=== PATIENT | female | born 1950 | race Caucasian/White ===

== ENCOUNTER → 2017-03-29 | Outpatient (CLI) | payer MEDICARE, OTHER ==
[~2017-03-29] MED LIST: CALC-665 PO; CETI10TA17 PO; GLUC-137 PO; HYDR-3583 PO; IBP600T1 PO; MULT-608 PO; OMEG1CAP51 PO; SIMV10TA3 PO; TAMO20TA2 PO; TYLENOL #3 PO
--- NOTE | 2017-03-29 19:20 | Diagnostic Imaging Report ---
Bilateral screening mammogram The current study was also evaluated with a Computer Aided Detection (CAD) system. INDICATION: Screening. No current complaints stated on the questionnaire. COMPARISON: 03/23/16. FINDINGS: The breasts are composed of scattered fibroglandular densities. There are occasional benign-appearing calcifications. Surgical clips in the medial aspect of the left breast and in the axilla are noted, similar to prior exams. Allowing for technique and positional differences, no suspicious change is seen. IMPRESSION: No significant change. ACR BI-RADS Category 2: Benign findings. Result letter will be mailed to the patient. Note: At least 10% of breast cancer is not imaged by mammography. Dictated by: Dictated on workstation # [id number]
== END ==
LOC: RAD 09:18
PROVIDERS: ATTEND Internal Medicine Hematology & Oncology
DX: Z12.31 Encounter for screening mammogram for malignant neoplasm of breast (principal)
CPT/HCPCS: 77067

== ENCOUNTER 2017-04-03 08:50 | Outpatient (RCR) | payer MEDICARE, OTHER ==
[2017-03-29 09:09] LABS: BASOPHILS # (AUTO) 0.1 10^3/uL (0.0-0.1); BASOPHILS % (AUTO) 1 % (0-10); EOSINOPHILS # (AUTO) 0.2 10^3/uL (0.0-0.3); EOSINOPHILS % (AUTO) 3 % (0-10); LYMPHOCYTES # (AUTO) 1.7 X 10^3 (1.0-4.0); LYMPHOCYTES % (AUTO) 24 % (12-44); MEAN CORPUSCULAR HEMOGLOBIN 28 PG (25-34); MEAN CORPUSCULAR HGB CONC 33 G/DL (32-36); MEAN CORPUSCULAR VOLUME 85 FL (80-99); MEAN PLATELET VOLUME 8.9 FL (7.4-10.4); MONOCYTES # (AUTO) 0.4 X 10^3 (0.0-1.0); MONOCYTES % (AUTO) 6 % (0-12); NEUTROPHILS # (AUTO) 4.6 X 10^3 (1.8-7.8); NEUTROPHILS % (AUTO) 66 % (42-75); PLATELET COUNT 341 10^3/uL (130-400); RED BLOOD COUNT 4.58 10^6/uL (4.35-5.85); RED CELL DISTRIBUTION WIDTH 13.9 % (10.0-14.5)
[2017-03-29 10:26] LABS: ALANINE AMINOTRANSFERASE 22 U/L (0-55); ALBUMIN 4.4 G/DL (3.2-4.5); ANION GAP 9 MMOL/L (5-14); ASPARTATE AMINO TRANSFERASE 16 U/L (5-34); BILIRUBIN,TOTAL 0.4 MG/DL (0.1-1.0); BLOOD UREA NITROGEN 17 MG/DL (7-18); BUN/CREATININE RATIO 22; CALCIUM 9.9 MG/DL (8.5-10.1); CARBON DIOXIDE 27 MMOL/L (21-32); CHLORIDE 104 MMOL/L (98-107); CREATININE SERUM 0.76 MG/DL (0.60-1.30); GFR ESTIMATED > 60; GLUCOSE 97 MG/DL (70-105); SODIUM 140 MMOL/L (135-145); TOTAL PROTEIN 8.1 G/DL (6.4-8.2)
== END 2017-06-27 | disposition home or self-care (01) ==
LOC: ONC 08:50
PROVIDERS: ATTEND Internal Medicine Hematology & Oncology
DX: Z08 Encounter for follow-up examination after completed treatment for malignant neoplasm (principal); Z85.3 Personal history of malignant neoplasm of breast; D61.818 Other pancytopenia; Z79.899 Other long term (current) drug therapy
CPT/HCPCS: 36415; 80053; 85025; 86300; 99213

== ENCOUNTER → 2018-04-01 | Outpatient (CLI) | payer MEDICARE, OTHER ==
--- NOTE | 2018-04-01 13:38 | Diagnostic Imaging Report ---
INDICATION: Routine screening. COMPARISON: 03/29/2017 and 03/23/2016. TECHNIQUE: 2D and 3D bilateral screening mammography was performed with CAD. FINDINGS: Scattered fibroglandular densities are identified bilaterally. Postsurgical changes with multiple surgical clips in the left breast are again noted. No dominant mass or malignant appearing microcalcifications are seen. The left axilla does contain multiple surgical clips. The right axilla is unremarkable. IMPRESSION: No mammographic features suspicious for malignancy are identified. ACR BI-RADS Category 2: Benign findings. Result letter will be mailed to the patient. Note: At least 10% of breast cancer is not imaged by mammography. Dictated by: Dictated on workstation # [id number]
== END ==
LOC: RAD 09:29
PROVIDERS: ATTEND Internal Medicine Hematology & Oncology
DX: Z12.31 Encounter for screening mammogram for malignant neoplasm of breast (principal)
CPT/HCPCS: 77067

== ENCOUNTER 2018-04-09 08:23 | Outpatient (RCR) | payer MEDICARE, OTHER ==
[2018-04-02 08:54] LABS: BASOPHILS # (AUTO) 0.1 10^3/uL (0.0-0.1); BASOPHILS % (AUTO) 1 % (0-10); EOSINOPHILS # (AUTO) 0.2 10^3/uL (0.0-0.3); EOSINOPHILS % (AUTO) 4 % (0-10); HEMATOCRIT 40 % (35-52); HEMOGLOBIN 13.5 G/DL (11.5-16.0); LYMPHOCYTES # (AUTO) 1.8 X 10^3 (1.0-4.0); LYMPHOCYTES % (AUTO) 29 % (12-44); MEAN CORPUSCULAR HEMOGLOBIN 29 PG (25-34); MEAN CORPUSCULAR HGB CONC 34 G/DL (32-36); MEAN CORPUSCULAR VOLUME 86 FL (80-99); MEAN PLATELET VOLUME 9.2 FL (7.4-10.4); MONOCYTES # (AUTO) 0.4 X 10^3 (0.0-1.0); MONOCYTES % (AUTO) 6 % (0-12); NEUTROPHILS # (AUTO) 3.6 X 10^3 (1.8-7.8); NEUTROPHILS % (AUTO) 60 % (42-75); PLATELET COUNT 315 10^3/uL (130-400); RED BLOOD COUNT 4.63 10^6/uL (4.35-5.85); RED CELL DISTRIBUTION WIDTH 13.5 % (10.0-14.5)
[2018-04-02 09:13] LABS: ALANINE AMINOTRANSFERASE 24 U/L (0-55); ALBUMIN 4.5 GM/DL (3.2-4.5); ALKALINE PHOSPHATASE 59 U/L (40-136); BILIRUBIN,TOTAL 0.4 MG/DL (0.1-1.0); BUN/CREATININE RATIO 14; CALCIUM 9.9 MG/DL (8.5-10.1); CARBON DIOXIDE 26 MMOL/L (21-32); CHLORIDE 107 MMOL/L (98-107); CREATININE SERUM 0.76 MG/DL (0.60-1.30); GFR ESTIMATED > 60; GLUCOSE 102 MG/DL (70-105); POTASSIUM 3.9 MMOL/L (3.6-5.0); SODIUM 142 MMOL/L (135-145); TOTAL PROTEIN 8.2 GM/DL (6.4-8.2)
== END 2018-07-01 | disposition home or self-care (01) ==
LOC: ONC 08:23
PROVIDERS: ATTEND Internal Medicine Hematology & Oncology
DX: Z08 Encounter for follow-up examination after completed treatment for malignant neoplasm (principal); Z85.3 Personal history of malignant neoplasm of breast; D61.818 Other pancytopenia; Z79.899 Other long term (current) drug therapy
CPT/HCPCS: 36415; 80053; 85025; 86300; 99213

== ENCOUNTER → 2018-04-29 | Outpatient (CLI) | payer MEDICARE, OTHER ==
--- NOTE | 2018-04-29 10:19 | Diagnostic Imaging Report ---
INDICATION: Peripheral vascular disease Ankle brachial indexes were recorded. Pressures are obtained in the brachial arteries and in the posterior tibial and dorsalis pedis. Right ankle brachial index is 0.99 in the posterior tibial and 0.80 in the dorsalis pedis. The left ankle-brachial index is 0.93 in the posterior tibial artery and 0.85 in the dorsalis pedis. IMPRESSION: There appears to be some pressure drop in the dorsalis pedis arteries and ankle bilaterally. Dictated by: Dictated on workstation # [id number]
--- NOTE | 2018-04-29 10:49 | Diagnostic Imaging Report ---
PROCEDURE: US Bilateral lower extremity arterial. TECHNIQUE: Multiple real-time grayscale images are obtained through both lower extremity arterial systems with color Doppler imaging and color Doppler spectral analysis. INDICATION: Lower extremity swelling. Discoloration of the toes. COMPARISON: None. FINDINGS: Left lower extremity arterial system: Biphasic flow is seen from the common femoral artery through the calf and into the dorsalis pedis artery. There is mild scattered echogenic atherosclerotic disease. There is somewhat asymmetric diminished systolic velocity within the left dorsalis pedis artery. Otherwise, there is no evidence of focal hemodynamically significant stenosis throughout. Right lower extremity arterial system: Triphasic flow is noted within the right common femoral artery. Biphasic flow is then seen from the superficial femoral artery through the calf to the dorsalis pedis artery. There is mild scattered echogenic atherosclerotic disease on the right as well. Grayscale and color-flow images however fail to show an area of focal hemodynamically significant stenosis. IMPRESSION: Scattered atherosclerotic disease of the bilateral lower extremity arterial systems with somewhat asymmetric diminished peak systolic velocities in the left dorsalis pedis artery, but no evidence of focal hemodynamically significant stenosis. Dictated by: Dictated on workstation # [id number]
== END ==
LOC: RAD 08:52
PROVIDERS: ATTEND Internal Medicine
DX: I70.209 Unspecified atherosclerosis of native arteries of extremities, unspecified extremity (principal)
CPT/HCPCS: 93922; 93925

== ENCOUNTER → 2018-06-19 | Outpatient (CLI) | payer MEDICARE, OTHER ==
--- NOTE | 2018-06-19 09:55 | Diagnostic Imaging Report ---
PROCEDURE: CT head without contrast. TECHNIQUE: Multiple contiguous axial images were obtained through the brain without the use of intravenous contrast. INDICATION: Balance problems and falls. Patient has a history of breast carcinoma. No prior head CTs are available for comparison. The ventricles and sulci are within normal limits. No sulcal effacement, midline shift or hemorrhage is detected. There is mild periventricular hypodensity noted, likely on the basis of chronic microvascular ischemia. Cisterns are patent. The visualized paranasal sinuses are clear. IMPRESSION: Changes of chronic microvascular ischemia. No other significant abnormality is seen. No acute features detected. Dictated by: Dictated on workstation # [id number]
== END ==
LOC: RAD 09:27
PROVIDERS: ATTEND Internal Medicine
DX: I67.82 Cerebral ischemia (principal); Z85.3 Personal history of malignant neoplasm of breast; W19.XXXA Unspecified fall, initial encounter
CPT/HCPCS: 70450

== ENCOUNTER → 2018-06-28 | Outpatient (CLI) | payer MEDICARE, OTHER | LOC: CARD 09:32 | PROVIDERS: ATTEND Internal Medicine Interventional Cardiology | DX: I10 Essential (primary) hypertension (principal); R06.02 Shortness of breath; E78.00 Pure hypercholesterolemia, unspecified | CPT/HCPCS: 93306 ==

== ENCOUNTER → 2019-04-02 | Outpatient (CLI) | payer MEDICARE, OTHER ==
--- NOTE | 2019-04-02 13:16 | Diagnostic Imaging Report ---
INDICATION: Routine screening. COMPARISON: 04/01/2018 and 03/29/2017. TECHNIQUE: 2D and 3D bilateral screening mammography was performed with CAD. FINDINGS: Scattered fibroglandular densities are identified bilaterally. Surgical clips in the medial left breast are noted. No dominant mass or malignant appearing microcalcifications are seen. The axillae are unremarkable apart from surgical clips in the left axilla. IMPRESSION: No mammographic features suspicious for malignancy are identified. ACR BI-RADS Category 2: Benign findings. Result letter will be mailed to the patient. Note: At least 10% of breast cancer is not imaged by mammography. Dictated by: Dictated on workstation # [id number]
== END ==
LOC: RAD 07:41
PROVIDERS: ATTEND Internal Medicine Hematology & Oncology
DX: Z12.31 Encounter for screening mammogram for malignant neoplasm of breast (principal); Z98.890 Other specified postprocedural states
CPT/HCPCS: 77067

== ENCOUNTER 2019-04-10 09:25 | Outpatient (RCR) | payer MEDICARE, OTHER ==
[2019-04-02 08:18] LABS: BASOPHILS % (AUTO) 0 % (0-10); EOSINOPHILS # (AUTO) 0.2 10^3/uL (0.0-0.3); EOSINOPHILS % (AUTO) 3 % (0-10); HEMATOCRIT 37 % (35-52); HEMOGLOBIN 12.3 G/DL (11.5-16.0); LYMPHOCYTES % (AUTO) 27 % (12-44); MEAN CORPUSCULAR HEMOGLOBIN 28 PG (25-34); MEAN CORPUSCULAR HGB CONC 33 G/DL (32-36); MEAN CORPUSCULAR VOLUME 86 FL (80-99); MEAN PLATELET VOLUME 8.9 FL (7.4-10.4); MONOCYTES # (AUTO) 0.6 X 10^3 (0.0-1.0); MONOCYTES % (AUTO) 8 % (0-12); NEUTROPHILS # (AUTO) 4.4 X 10^3 (1.8-7.8); NEUTROPHILS % (AUTO) 61 % (42-75); PLATELET COUNT 349 10^3/uL (130-400); RED CELL DISTRIBUTION WIDTH 13.7 % (10.0-14.5); WHITE BLOOD COUNT 7.2 10^3/uL (4.3-11.0)
[2019-04-02 08:39] LABS: ALANINE AMINOTRANSFERASE 26 U/L (0-55); ALBUMIN 4.3 GM/DL (3.2-4.5); ALKALINE PHOSPHATASE 62 U/L (40-136); BILIRUBIN,TOTAL 0.3 MG/DL (0.1-1.0); BUN/CREATININE RATIO 20; CALCIUM 10.2 MG/DL (8.5-10.1); CARBON DIOXIDE 25 MMOL/L (21-32); CHLORIDE 104 MMOL/L (98-107); CREATININE SERUM 0.75 MG/DL (0.60-1.30); GFR ESTIMATED > 60; GLUCOSE 96 MG/DL (70-105); POTASSIUM 3.8 MMOL/L (3.6-5.0); SODIUM 141 MMOL/L (135-145)
== END 2019-07-01 | disposition home or self-care (01) ==
LOC: ONC 09:25
PROVIDERS: ATTEND Internal Medicine Hematology & Oncology
DX: Z08 Encounter for follow-up examination after completed treatment for malignant neoplasm (principal); Z85.3 Personal history of malignant neoplasm of breast; Z79.899 Other long term (current) drug therapy
CPT/HCPCS: 36415; 80053; 85025; 99213

== ENCOUNTER → 2020-08-02 | Outpatient (CLI) | payer MEDICARE, OTHER ==
--- NOTE | 2020-08-02 09:13 | Diagnostic Imaging Report ---
INDICATION: Routine screening. Comparison is made with prior mammogram 04/02/2019 and 04/01/2018. 2-D and 3-D bilateral screening mammography was performed with CAD. Scattered fibroglandular densities are identified bilaterally. There are surgical clips in the medial left breast. There are densities identified in the right breast which appear more prominent than prior. These are just lateral to the nipple line and anterior mid depth. Additional views are recommended. No malignant appearing microcalcifications are seen. Left axilla containing surgical clips. Right axilla is unremarkable. IMPRESSION: BI-RADS 0 Right breast densities. Additional views recommended for further evaluation. ACR BI-RADS Category 0: Incomplete. (Needs additional imaging evaluation). Result letter will be mailed to the patient. Note: At least 10% of breast cancer is not imaged by mammography. Dictated by: Dictated on workstation # [id number]
== END ==
LOC: RAD 07:45
PROVIDERS: ATTEND Internal Medicine Hematology & Oncology
DX: Z12.31 Encounter for screening mammogram for malignant neoplasm of breast (principal)
CPT/HCPCS: 77063; 77067

== ENCOUNTER → 2020-08-02 | Outpatient (CLI) | payer MEDICARE, OTHER ==
--- NOTE | 2020-08-02 08:27 | Diagnostic Imaging Report ---
EXAMINATION: Left knee radiographs, 3 views. COMPARISON: None. HISTORY: 69-year-old female, left knee pain. FINDINGS: There is severe patellofemoral compartment joint space loss with small patellofemoral compartment osteophytes. There is no knee joint effusion. The medial and lateral compartment joint spaces are well preserved. There is no identified acute fracture. There is no chondrocalcinosis. 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 Dictated by: Dictated on workstation # [id number]
== END ==
LOC: RAD 07:47
PROVIDERS: ATTEND Internal Medicine
DX: M17.12 Unilateral primary osteoarthritis, left knee (principal)
CPT/HCPCS: 73562

== ENCOUNTER → 2020-08-04 | Outpatient (CLI) | payer MEDICARE, OTHER ==
--- NOTE | 2020-08-04 14:30 | Diagnostic Imaging Report ---
INDICATION: Right breast densities. Patient presents for additional views. COMPARISON: Recent screening study of 08/02/2020. TECHNIQUE: Unilateral right 2D and 3D diagnostic mammography was performed including spot compression CC and ML views as well as conventional 90 degree lateral views. FINDINGS: Additional views show persistent small circumscribed nodular densities in the retroareolar region approximately 3 cm from the nipple. There may be a nodule slightly more inferiorly at approximately the 6 o'clock location as well. No spiculated mass or suspicious calcifications are seen. IMPRESSION: Circumscribed nodules in the right breast, as described. Further evaluation with ultrasound is recommended and will be performed today. ACR BI-RADS Category 0: Incomplete. (Needs additional imaging evaluation). Result letter will be mailed to the patient. Note: At least 10% of breast cancer is not imaged by mammography. Dictated by: Dictated on workstation # [id number]
--- NOTE | 2020-08-04 15:14 | Diagnostic Imaging Report ---
INDICATION: Right breast nodular density. COMPARISON: Diagnostic mammogram from earlier this same day as well as screening mammogram from 08/02/2020. FINDINGS: Sonographic interrogation of the right breast demonstrates a simple appearing cyst in the retroareolar 7 o'clock location measuring approximately 3 mm x 4 mm. No abnormality at the 6 o'clock location is seen. No solid lesions are seen. IMPRESSION: Simple cyst at the retroareolar 7 o'clock location of the right breast, likely accounting for the mammographic density. The patient may return to routine annual screening mammography. ACR BI-RADS Category 2: Benign findings. Dictated by: Dictated on workstation # [id number]
== END ==
LOC: RAD 14:15
PROVIDERS: ATTEND Internal Medicine Hematology & Oncology
DX: N60.01 Solitary cyst of right breast (principal); R92.2 Inconclusive mammogram; R92.8 Other abnormal and inconclusive findings on diagnostic imaging of breast
CPT/HCPCS: 76642; 77065; G0279

== ENCOUNTER 2020-08-05 13:53 | Outpatient (RCR) | payer MEDICARE, OTHER ==
[2020-08-02 08:32] LABS: BASOPHILS % (AUTO) 1 % (0-10); EOSINOPHILS # (AUTO) 0.2 10^3/uL (0.0-0.3); EOSINOPHILS % (AUTO) 3 % (0-10); HEMATOCRIT 40 % (35-52); HEMOGLOBIN 13.1 G/DL (11.5-16.0); LYMPHOCYTES # (AUTO) 1.7 X 10^3 (1.0-4.0); LYMPHOCYTES % (AUTO) 27 % (12-44); MEAN CORPUSCULAR HEMOGLOBIN 28 PG (25-34); MEAN CORPUSCULAR HGB CONC 33 G/DL (32-36); MEAN CORPUSCULAR VOLUME 85 FL (80-99); MONOCYTES # (AUTO) 0.4 X 10^3 (0.0-1.0); MONOCYTES % (AUTO) 7 % (0-12); NEUTROPHILS # (AUTO) 3.9 X 10^3 (1.8-7.8); NEUTROPHILS % (AUTO) 62 % (42-75); PLATELET COUNT 353 10^3/uL (130-400); WHITE BLOOD COUNT 6.3 10^3/uL (4.3-11.0)
[2020-08-02 08:55] LABS: ALANINE AMINOTRANSFERASE 30 U/L (0-55); ALBUMIN 4.2 GM/DL (3.2-4.5); ALKALINE PHOSPHATASE 52 U/L (40-136); BILIRUBIN,TOTAL 0.4 MG/DL (0.1-1.0); BUN/CREATININE RATIO 19; CALCIUM 9.8 MG/DL (8.5-10.1); CARBON DIOXIDE 28 MMOL/L (21-32); CHLORIDE 103 MMOL/L (98-107); CREATININE SERUM 0.77 MG/DL (0.60-1.30); GFR ESTIMATED > 60; GLUCOSE 109 MG/DL (70-105); POTASSIUM 3.8 MMOL/L (3.6-5.0); SODIUM 141 MMOL/L (135-145); TOTAL PROTEIN 8.1 GM/DL (6.4-8.2)
== END 2020-10-31 | disposition home or self-care (01) ==
LOC: ONC 13:53
PROVIDERS: ATTEND Internal Medicine Hematology & Oncology
DX: E78.00 Pure hypercholesterolemia, unspecified (principal); I11.0 Hypertensive heart disease with heart failure; M79.89 Other specified soft tissue disorders; I50.30 Unspecified diastolic (congestive) heart failure
CPT/HCPCS: 80053; 85025; 99213

== ENCOUNTER → 2021-01-07 | Outpatient (CLI) | payer MEDICARE, OTHER ==
--- NOTE | 2021-01-07 09:55 | Diagnostic Imaging Report ---
PROCEDURE: Pelvic comp/transvaginal sonogram. TECHNIQUE: Complete transabdominal and transvaginal pelvic ultrasound was performed. In addition, limited pelvic Doppler was performed. INDICATION: Postmenopausal bleeding. Uterus is retroverted measuring 8.0 x 4.7 x 6.1 cm. No myometrial mass is detected. Endometrium is markedly heterogeneous and abnormally thickened measuring up to 2.4 cm in thickness. There does appear to be internal vascularity. Right ovary measures 2.6 x 1.5 x 1.4 cm. Right ovary does demonstrate normal vascularity. The left ovary could not be visualized due to overlying bowel gas. There are multiple cervical nabothian cysts. There is no free fluid. IMPRESSION: 1. Abnormally thickened and heterogeneous endometrium. Endometrial neoplasm cannot be entirely excluded. 2. No other significant abnormality is identified. Dictated by: Dictated on workstation # [id number]
== END ==
LOC: RAD 08:50
PROVIDERS: ATTEND Internal Medicine
DX: N93.9 Abnormal uterine and vaginal bleeding, unspecified (principal); R93.89 Abnormal findings on diagnostic imaging of other specified body structures
CPT/HCPCS: 76830; 76856

== ENCOUNTER 2021-01-27 05:43 | Outpatient (CLI) | payer MEDICARE, OTHER ==
[~2021-01-27] VITALS: Ht 160 cm; Wt 85045.0 kg
[2021-01-27] MEDS ORDERED: HYDR12.56 PO (09:57)
[2021-01-27] MEDS ORDERED: [UNRECOGNIZED DRUG - CODE] IV (09:57)
[2021-01-27] MEDS ORDERED: LOSA25TA41 PO (09:57)
[2021-01-27] MEDS ORDERED: TURM538C PO (10:15)
[2021-02-01] MEDS ORDERED: OXC5T PO (09:02)
[2021-02-01] MEDS ORDERED: ACET-93 PO (09:02)
[2021-02-01] MEDS ORDERED: IBUP-1773 PO (09:04)
== END 2021-01-27 11:24 | disposition home or self-care (01) ==
LOC: PREOP 05:43 → EDSTATUS 10:00 → PREOP 11:24
PROVIDERS: ATTEND Obstetrics & Gynecology
DX: Z01.818 Encounter for other preprocedural examination (principal)

== ENCOUNTER 2021-02-01 05:56 | Day surgery (SDC) | payer MEDICARE, OTHER ==
[2021-02-01] VITALS (8 sets, daily range): BP systolic 123–158; BP diastolic 68–87
[~2021-02-01] VITALS: Ht 160 cm; Wt 85.5 kg
[~2021-02-01 05:56] MED LIST changes: +HYDR12.56 PO; +LOSA25TA41 PO; +TURM538C PO; +[UNRECOGNIZED DRUG - CODE] IV
[2021-02-01] MEDS ORDERED: LACTATED RINGERS 1,000 ML IV PRN (06:15)
[2021-02-01] MEDS ORDERED: ceFAZolin INJECTION 1,000 MG in WATER (STERILE) FOR INJECTION 10 ML IV ONE (06:15)
[2021-02-01] MEDS ORDERED: MIDAZOLAM 2 MG/2 ML (VERSED) VIAL ONE ×2 (06:19→08:10)
[2021-02-01] MEDS ORDERED: PROPOFOL INJECTION 50 ML IV ONE (06:19)
--- NOTE | 2021-02-01 07:46 | Progress Note-Pre Operative ---
Pre-Operative Progress Note H&P Reviewed The H&P was reviewed, patient examined and no changes noted. Date Seen by Provider: Feb 01, 2021 Time Seen by Provider: 07:30 Date H&P Reviewed: Feb 01, 2021 Time H&P Reviewed: 07:30 Pre-Operative Diagnosis: post menopausal bleeding, thickened endometrium BETITO UREÑA DO Feb 01, 2021 07:45
[2021-02-01] MEDS ORDERED: KETOROLAC 30 MG/ML VIAL ONE (08:28)
--- NOTE | 2021-02-01 08:41 | Operative Report ---
Operative Report Date of Procedure/Surgery Feb 01, 2021 Surgeon (s) BETITO UREÑA DO Welding Operator (s): NA Post-Operative Diagnosis endometrial polyps post menopausal bleeding Procedure Performed hysteroscopy, dilation and curettage Description of Procedure Anesthesia Type: MAC Estimated blood loss (mL): minimal Specimen(s) collected/removed endometrial curettings, polyp Description of the Procedure The patient is a 70 year old post menopausal female. She had post menopausal bleeding and an US demonstrated a thickened endometrium with blood flow suggestive of an endometrial polyp or neoplasia. She has a history of breast cancer disgnosed in 2008 with letrozole and then tamoxifen. She has had two previous hysteroscopy, dilation and curettage with benign pathology (endometrial polyp). Both times she Findings of the Procedure 2 polypoid endometrial masses Allergies and Home Medications Allergies Coded Allergies: letrozole (Verified Allergy, Unknown, RASH, 01/27/21) Uncoded Allergies: TAPE (Allergy, Mild, BLISTERS, 05/27/09) Home Medications Calcium Carb/Vit D3/Minerals 1 Each Tab.chew, 1 EACH PO DAILY, (Reported) Cetirizine Hcl 10 Mg Tablet, 10 MG PO DAILY, (Reported) Glucosamine/Chondroitin/Vit D3 1 Each Tablet, 1 TAB PO DAILY, (Reported) Losartan Potassium 25 Mg Tablet, 25 MG PO DAILY, (Reported) Multivitamins 1 Tab Tablet, 1 TAB PO DAILY, (Reported) Constantia-3 Fatty Acids/Fish Oil 1 Each Capsule, 1 EACH PO HS, (Reported) Simvastatin 10 Mg Tablet, 10 MG PO HS, (Reported) Patient Home Medication List Home Medication List Reviewed: Yes BETITO UREÑA DO Feb 01, 2021 08:41
[2021-02-01] MEDS ORDERED: D5 LR IV SOLUTION 1,000 ML IV SCH (08:45)
[2021-02-01] MEDS ORDERED: ACETAMINOPHEN 500 MG TAB (TYLENOL) PO PRN (08:45)
[2021-02-01] MEDS ORDERED: ONDANSETRON 4 MG/2 ML (SDV) Z0FRAN IVP PRN ×2 (08:45→09:00)
--- NOTE | 2021-02-01 08:47 | Anesthesia-General Post-Op ---
MAC Patient Condition Mental Status/LOC: Same as Preop Cardiovascular: Satisfactory Nausea/Vomiting: Absent Respiratory: Satisfactory Pain: Controlled Complications: Absent Post Op Complications Complications None Follow Up Care/Instructions Patient Instructions None needed. Anesthesiology Discharge Order Discharge Order Patient is doing well, no complaints, stable vital signs, no apparent adverse anesthesia problems. No complications reported per nursing. HIRAM POLLACK CRNA Feb 01, 2021 08:47
[2021-02-01] MEDS ORDERED: morphine INJ 10 MG/ML 1ML (SYR OR VIAL) IVP ONE (09:00)
[2021-02-01] MEDS ORDERED: fentaNYL INJ 100 MCG/2 ML AMP IVP ONE (09:00)
[2021-02-01] MEDS ORDERED: MEPERIDINE (DEMEROL) INJ 50 MG/ML IVP ONE (09:00)
[2021-02-01] MEDS ORDERED: OXC5T PO (09:02)
[2021-02-01] MEDS ORDERED: ACET-93 PO (09:02)
[2021-02-01] MEDS ORDERED: IBUP-1773 PO (09:04)
--- NOTE | 2021-02-01 09:05 | Discharge Inst-Simple/Standard ---
Discharge Inst-Standard Reconcile Patient Problems Problems Reviewed?: Yes Discharge Medications New, Converted or Re-Newed RX: RX on Chart Patient Instructions/Follow Up Plan of Care/Instructions/FU: expect to have some bleeding/spotting for up to 10 days Activity as Tolerated: Yes Discharge Diet: No Restrictions Return to The Hospital For: bleeding greater than 1 pad per hour BETITO UREÑA DO Feb 01, 2021 09:05
[2021-02-01] MEDS ORDERED: KETOROLAC 15 MG/ML VIAL IVP ONE (09:15)
== END 2021-02-01 09:58 | disposition home or self-care (01) ==
LOC: SDC 05:56
PROVIDERS: ATTEND Obstetrics & Gynecology
DX: C54.1 Malignant neoplasm of endometrium (principal); N84.0 Polyp of corpus uteri; I10 Essential (primary) hypertension; E78.00 Pure hypercholesterolemia, unspecified; E66.9 Obesity, unspecified; Z68.33 Body mass index [BMI] 33.0-33.9, adult; Z79.899 Other long term (current) drug therapy; Z91.048 Other nonmedicinal substance allergy status; Z88.8 Allergy status to other drugs, medicaments and biological substances; Z85.3 Personal history of malignant neoplasm of breast
CPT/HCPCS: 87081; 88305; 88341; 88342

== ENCOUNTER → 2021-03-03 | Outpatient (CLI) | payer MEDICARE, OTHER ==
[~2021-03-03] MED LIST changes: +ACET-93 PO; +CATHETER FLUSH 10 ML SYR IV PRN; +HOLD METFORMIN - RECEIVED CONTRAST 20 ML VIAL IV SCH; +IBUP-1773 PO; +IOHEXOL 350 MG/ML 100 ML (OMNIPAQUE 350) VIAL IV ONE; +NS 100 ML (IVPB) BAG IV ONE; +OXC5T PO
--- NOTE | 2021-03-03 10:09 | Diagnostic Imaging Report ---
PROCEDURE: CT abdomen and pelvis with contrast. TECHNIQUE: Multiple contiguous axial images were obtained through the abdomen and pelvis after administration of intravenous contrast. Auto Exposure Controls were utilized during the CT exam to meet ALARA standards for radiation dose reduction. All CT scans use one or more of the following dose optimizing techniques: automated exposure control, MA and/or KvP adjustment based on patient size and exam type or iterative reconstruction. INDICATION: Malignant neoplasm of the endometrium. No prior CT studies are available for comparison. Lung bases are clear. No discrete liver mass is identified. There are multiple stones in the gallbladder. No biliary ductal dilatation is seen. Pancreas and spleen are unremarkable. No adrenal mass is detected. Kidneys are unremarkable. Aorta is nonaneurysmal. No central retroperitoneal or mesenteric lymphadenopathy is seen. Small and large bowel loops are normal caliber. There is no obstruction. Uterus and bladder are unremarkable. No pelvic lymphadenopathy is seen. Bony structures are unremarkable. IMPRESSION: 1. Cholelithiasis. 2. No evidence of abdominal or pelvic lymphadenopathy or metastatic disease. Dictated by: Dictated on workstation # [id number]
== END ==
LOC: RAD 10:15
PROVIDERS: ATTEND Obstetrics & Gynecology Gynecologic Oncology
DX: C54.1 Malignant neoplasm of endometrium (principal); K80.20 Calculus of gallbladder without cholecystitis without obstruction
CPT/HCPCS: 74177

== ENCOUNTER → 2021-08-05 | Outpatient (CLI) | payer MEDICARE, OTHER ==
[~2021-08-05] MED LIST changes: -CATHETER FLUSH 10 ML SYR IV PRN; -HOLD METFORMIN - RECEIVED CONTRAST 20 ML VIAL IV SCH; -IOHEXOL 350 MG/ML 100 ML (OMNIPAQUE 350) VIAL IV ONE; -NS 100 ML (IVPB) BAG IV ONE
--- NOTE | 2021-08-05 13:49 | Diagnostic Imaging Report ---
INDICATION: Routine screening. Comparison is made with prior mammogram from 08/02/2020 and 04/02/2019. 2-D and 3-D bilateral screening mammography was performed with CAD. Scattered fibroglandular densities are identified bilaterally. Circumscribed density in the retroareolar right breast appears stable. Surgical clips in the medial left breast are again noted. There are benign calcifications. No new mass or malignant-appearing microcalcifications are seen. There are surgical clips in the left axilla. Right axilla is unremarkable. IMPRESSION: BI-RADS Category 2 No mammographic features suspicious for malignancy are identified. ACR BI-RADS Category 2: Benign findings. Result letter will be mailed to the patient. Note: At least 10% of breast cancer is not imaged by mammography. Dictated by: Dictated on workstation # [id number]
== END ==
LOC: RAD 09:48
PROVIDERS: ATTEND Internal Medicine Hematology & Oncology
DX: Z12.31 Encounter for screening mammogram for malignant neoplasm of breast (principal)
CPT/HCPCS: 77063; 77067

== ENCOUNTER → 2021-08-10 | Outpatient (CLI) | payer MEDICARE, OTHER ==
[2021-08-10 13:19] LABS: BASOPHILS # (AUTO) 0.1 10^3/uL (0.0-0.1); BASOPHILS % (AUTO) 1 % (0-10); EOSINOPHILS # (AUTO) 0.2 10^3/uL (0.0-0.3); EOSINOPHILS % (AUTO) 2 % (0-10); HEMATOCRIT 41 % (35-52); HEMOGLOBIN 13.6 g/dL (11.5-16.0); LYMPHOCYTES # (AUTO) 2.1 10^3/uL (1.0-4.0); LYMPHOCYTES % (AUTO) 28 % (12-44); MEAN CORPUSCULAR HEMOGLOBIN 29 pg (25-34); MEAN CORPUSCULAR HGB CONC 33 g/dL (32-36); MEAN CORPUSCULAR VOLUME 89 fL (80-99); MEAN PLATELET VOLUME 8.7 fL (9.0-12.2); MONOCYTES # (AUTO) 0.6 10^3/uL (0.0-1.0); MONOCYTES % (AUTO) 8 % (0-12); NEUTROPHILS # (AUTO) 4.7 10^3/uL (1.8-7.8); NEUTROPHILS % (AUTO) 62 % (42-75); PLATELET COUNT 331 10^3/uL (130-400); WHITE BLOOD COUNT 7.6 10^3/uL (4.3-11.0)
[2021-08-10 13:39] LABS: ALBUMIN 4.2 GM/DL (3.2-4.5); BILIRUBIN,TOTAL 0.3 MG/DL (0.1-1.0); CALCIUM 10.1 MG/DL (8.5-10.1); CREATININE SERUM 0.78 MG/DL (0.60-1.30); POTASSIUM 3.8 MMOL/L (3.6-5.0); TOTAL PROTEIN 8.2 GM/DL (6.4-8.2)
== END ==
LOC: EDSTATUS 11-01 13:44 → ONC 12:58
PROVIDERS: ATTEND Internal Medicine Hematology & Oncology
DX: Z08 Encounter for follow-up examination after completed treatment for malignant neoplasm (principal); Z85.3 Personal history of malignant neoplasm of breast
CPT/HCPCS: 80053; 85025; G0463; 99213

== ENCOUNTER → 2021-09-09 | Outpatient (CLI) | payer MEDICARE, OTHER | LOC: CARD 11:00 | PROVIDERS: ATTEND Internal Medicine Cardiovascular Disease | DX: I35.1 Nonrheumatic aortic (valve) insufficiency (principal); I25.10 Atherosclerotic heart disease of native coronary artery without angina pectoris; I10 Essential (primary) hypertension | CPT/HCPCS: 93306 ==

== ENCOUNTER → 2022-09-08 | Outpatient (CLI) | payer MEDICARE, OTHER ==
--- NOTE | 2022-09-08 19:02 | Diagnostic Imaging Report ---
INDICATION: Routine screening. COMPARISON: Prior mammograms from 08/05/2021 and 08/02/2020. EXAMINATION: 2D and 3D bilateral screening mammography was performed with CAD. The current study was also evaluated with a Computer Aided Detection (CAD) system. FINDINGS: Scattered fibroglandular densities are identified, bilaterally. Multiple surgical clips in the left breast and left axilla are again noted. No mass or malignant-appearing microcalcifications are seen. Axillae are unremarkable. IMPRESSION: No mammographic features suspicious for malignancy are identified. ACR BI-RADS Category 2: Benign findings. Result letter will be mailed to the patient. Note: At least 10% of breast cancer is not imaged by mammography. Dictated by: Dictated on workstation # [id number]
== END ==
LOC: RAD 14:45
PROVIDERS: ATTEND Internal Medicine
DX: Z12.31 Encounter for screening mammogram for malignant neoplasm of breast (principal)
CPT/HCPCS: 77063; 77067

== ENCOUNTER → 2022-09-18 | Outpatient (CLI) | payer MEDICARE, OTHER ==
[~2022-09-18] MED LIST changes: +ATOR10TA66 PO; +CALC-1049 PO; +GLUC1CAP37 PO; +IBUP-2473 PO; +LORA10TA76 PO; +LOSA50TA63 PO; +MULT-1136 PO; +OMEG100032 PO; +POTA-177 PO; +TURM500T PO
== END ==
LOC: CARD 09:12
PROVIDERS: ATTEND Internal Medicine Cardiovascular Disease
DX: I10 Essential (primary) hypertension (principal); I25.10 Atherosclerotic heart disease of native coronary artery without angina pectoris

== ENCOUNTER → 2022-09-20 | Outpatient (CLI) | payer MEDICARE, OTHER ==
[~2022-09-20] MED LIST changes: -ATOR10TA66 PO; -CALC-1049 PO; +CATHETER FLUSH 10 ML SYR IVP PRN; -GLUC1CAP37 PO; -IBUP-2473 PO; -LORA10TA76 PO; -LOSA50TA63 PO; -MULT-1136 PO; -OMEG100032 PO; -POTA-177 PO; +REGADENOSON 0.4 MG/5 ML SYR (LEXISCAN) IV ONE; -TURM500T PO
[2022-09-20 09:26] VITALS: BP 158/95
--- NOTE | 2022-09-20 11:28 | Cardiology Stress Test Report ---
Stress Test Report Date of Procedure/Referring: Date of Procedure: Sep 20, 2022 PCP Senait Huynh DO Admitting Physician Admitting Physician: Attending Physician: Bing Friend Indications: I10 Baseline Heart Rate: 84 Baseline Blood Pressure: Blood Pressure Systolic: 158 Blood Pressure Diastolic: 95 Baseline Vitals Vital Signs Date Time Temp Pulse Resp B/P (MAP) Pulse Ox O2 Delivery O2 Flow Rate FiO2 09/20/22 09:26 84 158/95 (116) Baseline EKG: Baseline EKG: NSR Summary After explaining the procedure to the patient, she signed a consent and then brought to the stress nuclear laboratory. Patient received 0.4 mg Lexiscan for stress test, ECG, heart rate and blood pressure were monitored continuously. Resting and stress dose of radio tracer were injected, imaging was acquired and reviewed in short axis, horizontal long axis and vertical long axis views. TID: 1.21 SSS: 3 SDS: 3 EF: 72 1. Patient tolerated Lexiscan well 2. Breast attenuation with typical female pattern, mild decrease uptake at the base of the anteroseptum with mild reversibility. No significant ischemia or infarction on SPECT images 3. Normal left ventricular size, ejection fraction 72% 4. Transient ischemic dilatation value of 1.21. Copy Copies To 1: SENAIT HUYNH BASHAR J MD Sep 20, 2022 11:28
== END ==
LOC: CARD 08:00
PROVIDERS: ATTEND Physician Assistant
DX: I10 Essential (primary) hypertension (principal)
CPT/HCPCS: 78452; 93017; A9502

== ENCOUNTER 2022-09-27 07:38 | Day surgery (SDC) | payer MEDICARE, OTHER ==
[2022-09-27] VITALS (7 sets, daily range): BP systolic 112–175; BP diastolic 60–125
[~2022-09-27] VITALS: Ht 160 cm; Wt 81.3 kg
[~2022-09-27 07:38] MED LIST changes: -ATOR10TA66 PO; -CALC-1049 PO; -GLUC1CAP37 PO; -IBUP-2473 PO; -LORA10TA76 PO; -LOSA50TA63 PO; -MULT-1136 PO; -OMEG100032 PO; -POTA-177 PO; -TURM500T PO
[2022-09-27] MEDS ORDERED: LIDOCAINE 1% INJ 30 ML (XYLOCAINE) VIAL ONE (07:43)
[2022-09-27] MEDS ORDERED: HEParin (CATH LAB) 2,000 ML IV ONE (07:43)
[2022-09-27] MEDS ORDERED: NS IV 1000 ML 1,000 ML ONE (07:43)
[2022-09-27] MEDS ORDERED: NS IV 1000 ML 1,000 ML IV SCH ×2 (07:45→10:45)
[2022-09-27 08:22] LABS: HEMATOCRIT 41 % (35-52); HEMOGLOBIN 13.8 g/dL (11.5-16.0); MEAN CORPUSCULAR HEMOGLOBIN 29 pg (25-34); MEAN CORPUSCULAR HGB CONC 33 g/dL (32-36); MEAN CORPUSCULAR VOLUME 87 fL (80-99); PLATELET COUNT 302 10^3/uL (130-400); WHITE BLOOD COUNT 5.8 10^3/uL (4.3-11.0)
[2022-09-27] MEDS ORDERED: POTA-177 PO ×2 (08:22→08:42)
[2022-09-27 08:29] LABS: PROTHROMBIN TIME PATIENT 13.2 SEC (12.2-14.7)
[2022-09-27 08:37] LABS: ALBUMIN 4.4 GM/DL (3.2-4.5); BILIRUBIN,TOTAL 0.3 MG/DL (0.1-1.0); CALCIUM 9.7 MG/DL (8.5-10.1); CREATININE SERUM 0.78 MG/DL (0.60-1.30); POTASSIUM 3.8 MMOL/L (3.6-5.0); TOTAL PROTEIN 8.2 GM/DL (6.4-8.2)
[2022-09-27] MEDS ORDERED: GLUC1CAP37 PO (08:42)
[2022-09-27] MEDS ORDERED: IBUP-2473 PO (08:42)
[2022-09-27] MEDS ORDERED: LOSA50TA63 PO (08:42)
[2022-09-27] MEDS ORDERED: CALC-1049 PO (08:42)
[2022-09-27] MEDS ORDERED: ATOR10TA66 PO (08:42)
[2022-09-27] MEDS ORDERED: OMEG100032 PO (08:42)
[2022-09-27] MEDS ORDERED: TURM500T PO (08:42)
[2022-09-27] MEDS ORDERED: MULT-1136 PO (08:42)
[2022-09-27] MEDS ORDERED: LORA10TA76 PO (08:42)
--- NOTE | 2022-09-27 09:06 | Diagnostic Imaging Report ---
INDICATION: Coronary artery disease FINDINGS: Heart size and configuration normal. There is no failure pattern, effusion or pneumothorax. Lungs clear. IMPRESSION: Unremarkable frontal chest. Dictated by: Dictated on workstation # [id number]
[2022-09-27] MEDS ORDERED: MIDAZOLAM 5 MG/5 ML (VERSED) VIAL ONE (09:24)
[2022-09-27] MEDS ORDERED: HEParin 1000 UNIT/ML (10ML VIAL) FOR BOLUS ONE (09:24)
[2022-09-27] MEDS ORDERED: fentaNYL INJ 100 MCG/2 ML AMP ONE (09:24)
[2022-09-27] MEDS ORDERED: VERAPAMIL 5 MG/2 ML (CALAN) VIAL IV ONE (09:24)
[2022-09-27] MEDS ORDERED: NITRO DRIP 25000 MCG/D5W 250 ML IV ONE (09:25)
--- NOTE | 2022-09-27 09:51 | Cardiac Procedure Note-CS/ASA ---
Pre-Procedure Note Pre-Op Procedure Note Date of Available H&P: Sep 21, 2022 Date H&P Reviewed: Sep 27, 2022 Time H&P Reviewed: 09:50 History & Physical: H&P Reviewed, Patient Examed, No changes noted Pre-Operative Diagnosis: CAD Conscious Sedation Pre-Proced Time 09:00 ASA Score 3 For ASA 3 and 4: Consider anesthesia and medical clearance. Also, for patients with a history of failed moderate sedation consider anesthesia. Airway Lungs Heart ASA score ASA 1: a normal healthy patient ASA 2: a patient with a mild systemic disease (mid diabetes, controlled hypertension, obesity ASA 3: a patient with a severe systemic disease that limits activity (angina, COPD, prior Myocardial infarction) ASA 4: a patient with an incapacitating disease that is a constant threat to life (CHF, renal failure) ASA 5: a moribund patient not expected to survive 24 hrs. (ruptured aneurysm) ASA 6: a declared brain- patient whose organs are being harvested. For emergent operations, add the letter E after the classification Mallampati Classification Grade 3 Sedation Plan Analgesia, Amnesia, Plan communicated to team members, Discussed options with patient/fam, Discussed risks with patient/fam The patient is an appropriate candidate to undergo the planned procedure, sedation, and anesthesia. The patient immediately re-assessed prior to indication. LAKESHA CHEN MD Sep 27, 2022 09:51
--- NOTE | 2022-09-27 10:38 | Discharge Inst-Post CATH ---
Discharge Inst-CATH/EP Problems Reviewed?: Yes Post Cardiac Cath/EP D/C Inst Follow Up/Plan Appointment with Dr. Hilliard's office in 2-4 weeks <b>CARDIAC CATH/EP PROCEDURE DISCHARGE INSTRUCTIONS</b> ACTIVITY * Go Home directly and rest. * Limit activity of the leg (or wrist if it was used) for 7 days including aerobics, swimming, jogging, bicycling, etc. * Restrict stair-climbing for 7 days if possible, if not, climb up with your non-cath leg, then bring together on the same step. * Avoid lifting, pushing, pulling or excessive movement of the affected extremity for 7 days. * Customary sexual activity may be resumed after 2 days-use caution not to use a position that strains or causes pain to the affected extremity. * No driving for 24 hours. * NO SMOKING. * Avoid straining for bowel movements for 7 days. * Gentle walking on level ground is allowed. * Returning to work will depend on the type of procedure and the results. Your doctor will discuss this with you. CALL YOUR DOCTOR FOR ANY OF THE FOLLOWING: *If bleeding from the puncture site occurs- Apply gentle pressure to site with clean cloth and call your doctor or EMS. * If a knot or lump forms under the skin, increases in size, or causes pain. * If bruising appears to be worsening or moving further down your leg instead of disappearing. * Temperature above 101 F. CARE OF YOUR GROIN INCISION; * Bruising or purple discoloration of the skin near the puncture site is common. * You may shower only, no bathtub bathing for 5 days. Be careful to avoid slipping as your leg may feel stiff. * If a closure device was used on your femoral artery, please see the attached guide regarding care of the device and your leg. * Leave dressing on FOR 24 hours. CARE OF YOUR WRIST INCISION; * Bruising or purple discoloration of the skin near the puncture site is common. * You may shower. * DO NOT submerge wrist. * Leave dressing on FOR 24 hours. LAKESHA HILLIARD MD Sep 27, 2022 10:38
--- NOTE | 2022-09-27 10:43 | Cardiac Cath Report ---
Cardiac Cath Report Physician (s)/Dairy Products Maker (s) Physician LAKESHA CHEN MD Pre-Procedure Diagnosis Pre-Procedure Diagnosis: CAD Post-Procedure Note Procedure Start Date: Sep 27, 2022 Name of Procedure: Left heart catheterization Aortic root angiogram Findings/Procedure Note PROCEDURE NOTE: 71-year-old lady with history of hypertension, hyperlipidemia, had an abnormal stress test with transient ischemic dilatation 1.21. Scheduled for cardiac catheterization possible PTCA. After explaining the procedure to the patient, all pros and cons were explained, all questions were answered. The patient signed the consent and then she was placed on the cardiac catheterization laboratory. Groin was prepped SL fashion local anesthesia was used. Sheath placed in the right radial artery, [place] catheter was prolapsed to the left ventricular cavity. Pressure was measured, pullback LV to aorta was done, engaged the right coronary artery, the left system appeared to be originating from the right coronary cusp just next to the right coronary artery. Angiogram was done to both arteries then I did angiogram in the left coronary cusp did not show any other branches. Then exchanged the cath and used a pigtail catheter advanced it to the aortic root and aortic root angiogram was done. At the end of the procedure the sheath was removed. 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 Has a small kink in the mid left main. No significant obstructive disease Left Anterior Descending is moderate in size, mild disease nonobstructive disease Left Circumflex is small nondominant artery with no obstructive disease Right Coronary Artery is a dominant artery with mild disease nonobstructive disease LV Gram was not done, pressure was measured Aorta evaluation done with aortic root angiogram which showed normal aortic root, no dissection or aneurysm, the right and the left coronary system origina ting from the right coronary cusp otherwise no other arteries. CONCLUSION: 1. 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 Dominant right coronary artery with mild disease nonobstructive disease 3. Mildly elevated left ventricular end-diastolic pressure 4. Normal aortic root DISCUSSION AND RECOMMENDATION: No obstructive disease was noted, I recommend evaluating CT angiogram of her coronaries to rule out any malignant root of the left main Anesthesia Type: Conscious Sedation Estimated blood loss (mL): 25 ml Contrast Amount: 67 ml Total Radiation Dose: 511 mGy Post-Procedure Diagnosis Post-operative diagnosis: Coronary artery disease Anomalous coronary system Hypertension Hyperlipidemia LAKESHA CHEN MD Sep 27, 2022 10:43
== END 2022-09-27 13:15 | disposition home or self-care (01) ==
LOC: CATH 07:38
PROVIDERS: ATTEND Internal Medicine Cardiovascular Disease
DX: I25.10 Atherosclerotic heart disease of native coronary artery without angina pectoris (principal); I10 Essential (primary) hypertension; Q24.5 Malformation of coronary vessels; E66.9 Obesity, unspecified; E78.2 Mixed hyperlipidemia; I65.29 Occlusion and stenosis of unspecified carotid artery; Z68.31 Body mass index [BMI] 31.0-31.9, adult
CPT/HCPCS: 71045; 80053; 80061; 85027; 85610; 85730; 87081; 93005; 93458; 93567; C1894; 36415

== ENCOUNTER → 2022-09-27 | Outpatient (CLI) | payer MEDICARE, OTHER ==
[~2022-09-27] MED LIST changes: +ATOR10TA66 PO; +CALC-1049 PO; -CATHETER FLUSH 10 ML SYR IVP PRN; +GLUC1CAP37 PO; +IBUP-2473 PO; +LORA10TA76 PO; +LOSA50TA63 PO; +MULT-1136 PO; +OMEG100032 PO; +POTA-177 PO; -REGADENOSON 0.4 MG/5 ML SYR (LEXISCAN) IV ONE; +TURM500T PO
== END ==
LOC: CARD 07:30
PROVIDERS: ATTEND Physician Assistant
DX: I10 Essential (primary) hypertension (principal); I25.10 Atherosclerotic heart disease of native coronary artery without angina pectoris

== ENCOUNTER → 2022-11-09 | Outpatient (CLI) | payer MEDICARE, OTHER ==
[~2022-11-09] MED LIST changes: +ATOR10TA66 PO; +CALC-1049 PO; +GLUC1CAP37 PO; +IBUP-2473 PO; +LORA10TA76 PO; +LOSA50TA63 PO; +MULT-1136 PO; +OMEG100032 PO; +POTA-177 PO; +TURM500T PO
[2022-11-09 08:20] LABS: CREATININE SERUM 0.72 MG/DL (0.60-1.30)
== END ==
LOC: LAB 08:00
PROVIDERS: ATTEND Physician Assistant
DX: I25.10 Atherosclerotic heart disease of native coronary artery without angina pectoris (principal)
CPT/HCPCS: 36415; 82565; 84520

== ENCOUNTER → 2022-11-27 | Outpatient (CLI) | payer MEDICARE, OTHER ==
[2022-11-09 08:20] LABS: CREATININE SERUM 0.72 MG/DL (0.60-1.30)
[~2022-11-27] MED LIST changes: +CATHETER FLUSH 10 ML SYR IV PRN; +HOLD METFORMIN - RECEIVED CONTRAST 20 ML VIAL IV SCH; +IOHEXOL 350 MG/ML 100 ML (OMNIPAQUE 350) VIAL IV ONE; +NITROGLYCERIN 0.4 MG SL TABS BTL 25'S SL ONE; +NS 100 ML (IVPB) BAG IV ONE; +meTOprolol 5 MG/5 ML (LOPRESSOR) VIAL IV PRN
[2022-11-27 08:35] VITALS: BP 138/88
[2022-11-27 08:40] VITALS: BP 133/79
--- NOTE | 2022-11-27 14:57 | Diagnostic Imaging Report ---
INDICATION: Chest pain. TECHNIQUE: CTA coronary artery study performed with precontrast study, followed by post IV contrast studies with EKG gating and 3-D reconstructions. All CT scans use one or more of the following dose optimizing techniques: Automated exposure control, MA and/or KvP adjustment based on a patient size and exam type, or iterative reconstruction. FINDINGS: The visualized portions of the mediastinum show no adenopathy. The thoracic aorta shows no evidence of dissection or aneurysm. There are a few scattered plaques in the thoracic aorta. Visualized portions of the lung rehman appear clear, the entirety of the lungs are not included on this study. 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 The anomalous left main coronary artery passes between the pulmonary artery and the aorta with some associated narrowing. The LAD shows scattered areas of plaquing without high-grade stenosis. There is some minor plaquing in the diagonal branches. The left circumflex coronary artery is patent and without discrete lesion. The right coronary artery is patent and without stenosis. Right coronary artery is dominant and supplies the posterior descending coronary artery. 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 The left main coronary appears to arise from the right coronary cusp, sharing a common origin with the right coronary artery. The left main coronary artery passes between the aorta and pulmonary artery. There are some scattered areas of plaquing in the LAD without high-grade coronary stenosis. There is some narrowing of the left main coronary artery as it passes between the pulmonary artery and aorta. Dictated by: Dictated on workstation # [id number]
== END ==
LOC: RAD 11-09 07:41
PROVIDERS: ATTEND Physician Assistant
DX: I25.10 Atherosclerotic heart disease of native coronary artery without angina pectoris (principal)
CPT/HCPCS: 36415; 75574; 82565; 84520

== ENCOUNTER → 2023-01-12 | Outpatient (CLI) | payer MEDICARE, OTHER ==
[~2023-01-12] MED LIST changes: -CATHETER FLUSH 10 ML SYR IV PRN; -HOLD METFORMIN - RECEIVED CONTRAST 20 ML VIAL IV SCH; -IOHEXOL 350 MG/ML 100 ML (OMNIPAQUE 350) VIAL IV ONE; -NITROGLYCERIN 0.4 MG SL TABS BTL 25'S SL ONE; -NS 100 ML (IVPB) BAG IV ONE; -meTOprolol 5 MG/5 ML (LOPRESSOR) VIAL IV PRN
--- NOTE | 2023-01-12 17:25 | Diagnostic Imaging Report ---
PROCEDURE: US Thyroid. TECHNIQUE: Multiple real-time grayscale images were obtained of the thyroid in various projections. INDICATION: Thyroid mass. COMPARISON: None. FINDINGS: Both thyroid lobes demonstrate smooth and homogenous background echotexture. Color flow Doppler demonstrates normal and symmetric vascularity, bilaterally. The right lobe measures 4.8 cm in length, 2.1 cm AP and 1.4 cm transverse. The left lobe measures 5.4 cm in length, 3.3 cm AP and 4.3 cm transverse. The isthmus measures 0.3 cm. A large mostly cystic mass is seen in the left lobe of the thyroid measuring 4.4 x 2.9 x 4.2 cm. Smaller nodules are seen in the right lobe of the thyroid measuring up to 0.8 cm. IMPRESSION: Large mostly cystic mass in the left lobe of the thyroid measuring 4.4 cm. Based on imaging characteristics and size criteria thyroid FNA is recommended. Dictated by: Dictated on workstation # [id number]
== END ==
LOC: RAD 14:11
PROVIDERS: ATTEND Internal Medicine
DX: E07.9 Disorder of thyroid, unspecified (principal)
CPT/HCPCS: 76536

== ENCOUNTER → 2023-01-23 | Outpatient (CLI) | payer MEDICARE, OTHER ==
[~2023-01-23] MED LIST changes: +LIDOCAINE 1% INJ 30 ML (XYLOCAINE) VIAL INJ ONE
--- NOTE | 2023-01-23 12:37 | Diagnostic Imaging Report ---
INDICATION: Left thyroid nodule. Patient presents for ultrasound-guided fine-needle aspiration. FINDINGS: Patient was brought to the procedure room and placed on table in the supine position. Ultrasound imaging of the left neck was performed to evaluate appropriate entry site. Left neck was then prepped and draped in usual sterile fashion. Small amount of 1% lidocaine was utilized for local anesthesia. An 18-gauge needle was advanced into the cystic mass in the left neck and approximately 5 cc of yellow-tinged serous fluid was aspirated. Next, total of four passes were made into the more nodular solid peripheral component of the cystic mass utilizing 25-gauge needles and fine-needle aspiration technique. Hemostasis was obtained. Patient tolerated the procedure well and left the department in stable condition. IMPRESSION: Successful ultrasound-guided fine-needle aspiration of the mixed solid and cystic mass in the left lobe of the thyroid. Pathology results are currently pending. Dictated by: Dictated on workstation # [id number]
== END ==
LOC: RAD 10:39
PROVIDERS: ATTEND Internal Medicine
DX: E04.1 Nontoxic single thyroid nodule (principal)

== ENCOUNTER 2023-05-14 17:52 | Inpatient (IN) | payer MEDICARE, OTHER ==
[~2023-05-14] VITALS: Ht 160.2 cm; Wt 84.3 kg
[~2023-05-14 17:52] MED LIST changes: -APIX5TAB PO; -CETI10TA49 PO; -LOSA100T58 PO; -MULT-1067 PO; -OMEG1CAP58 PO; -ONDA8TAB13 SL; -PANT40TA52 PO; -RUTI1TAB PO
[2023-05-14] MEDS ORDERED: MILK OF MAGNESIA 400 MG/5 ML 30 ML UDC PO PRN (18:15)
[2023-05-14] MEDS ORDERED: polyethylene glycoL POWDER 17 GM (MIRALAX) PACK PO PRN (18:15)
[2023-05-14] MEDS ORDERED: ACETAMINOPHEN 325 MG TABLET PO PRN (18:15)
[2023-05-14] MEDS ORDERED: ANTACID SUSP 30 ML UDC (MYLANTA) PO PRN (18:15)
[2023-05-14] MEDS ORDERED: morphine INJ 4 MG/ML 1 ML (VIAL/SYRINGE) IV PRN (18:15)
[2023-05-14] MEDS ORDERED: LACTULOSE SYRUP 10GM/15ML (ENULOSE) 30ML UDC PO PRN (18:15)
[2023-05-14] MEDS ORDERED: diphenhydrAMINE 25 MG TAB (BENADRYL) PO PRN (18:15)
[2023-05-14] MEDS ORDERED: diphenhydrAMINE 50 MG/ML INJ (BENADRYL) IVP PRN (18:15)
[2023-05-14] MEDS ORDERED: MELATONIN 3 MG TABLET PO PRN (18:15)
[2023-05-14] MEDS ORDERED: BISACODYL 10 MG SUPP (DULCOLAX) PR PRN (18:15)
[2023-05-14] MEDS ORDERED: ONDANSETRON 4 MG (ZOFRAN) ORAL DISSOLVE TAB PO PRN (18:15)
[2023-05-14] MEDS ORDERED: CALCIUM CARBONATE 500 MG (TUMS) TAB.CHEW PO PRN (18:15)
--- NOTE | 2023-05-14 19:00 | History & Physical ---
History of Present Illness HPI/Chief Complaint Chief complaint: Extensive right lower extremity DVT with liver mass and ascites HPI: This is a 72-year-old female clinic patient of mine for the last 15 years who has a past medical history of hypertension and breast cancer and uterine cancer who presented as a direct admission from home after ultrasound showed extensive right lower extremity DVT. She had been seen in the clinic last week as an urgent appointment for feeling abdominal distention and slight discoloration of her right leg. Ultrasound was done today showing extensive clot and abdominal ultrasound showed a liver mass so the decision was made to t he extensiveness of the clot and abdominal ascites she would need aggressive treatment and evaluation so she was admitted to the hospital. is at the bedside. Lovenox will be initiated. CT scans will be obtained checking for pulmonary embolism and to further evaluate the liver mass. Mass is suspected to be neoplastic and considering her history of breast cancer and uterine cancer likely this will indicate metastasis. 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 Patients Allergies have been reviewed. Allergies Allergies Coded Allergies letrozole (Verified Allergy, Unknown, RASH, 05/14/23) Uncoded Allergies TAPE ( Allergy, Mild, BLISTERS, 05/27/09) Past [id number]-[id number]-Yzfdls Hx Past Med/Social Hx: Reviewed Nursing Past Med/Soc Hx, Reviewed and Corrections made Patient Social History Marrital Status: Employed/Student: retired Alcohol Use: Denies Use Smoking Status: Never a Smoker 2nd Hand Smoke Exposure: Yes Recent Foreign Travel: No Contact w/other who traveled: No Recent Hopitalizations: No Immunizations Up To Date Tetanus Booster (TDap): Less than 5yrs Date of Influenza Vaccine: Aug 30, 2020 Seasonal Allergies Seasonal Allergies: Yes Past Medical History Surgeries: Breast, Hysterectomy, Lumpectomy, Tonsillectomy Currently Using CPAP: No Currently Using BIPAP: No Cardiac: High Cholesterol Reproductive: Yes (THICKEN ENDOMETRIUM) Sexually Transmitted Disease: No HIV/AIDS: No Menopausal Cancer: Skin, Breast, Uterine Did You Recieve Any Treatments: Yes What Type of Treatment Did You: Radiation, Surgical Intervention History of Blood Disorders: No Adverse Reaction to Blood Miller: No Review of Systems Constitutional: see HPI, malaise, weakness EENTM: no symptoms reported Respiratory: no symptoms reported Cardiovascular: no symptoms reported Gastrointestinal: abdominal pain, nausea Genitourinary: no symptoms reported Musculoskeletal: back pain Skin: no symptoms reported Psychiatric/Neurological: No Symptoms Reported All Other Systems Reviewed Negative Unless Noted: Yes Physical Exam Physical Exam Vital Signs Vital Signs - First Documented 05/14/23 05/14/23 19:22 19:41 Temp 36.1 Pulse 99 Resp 18 B/P (MAP) 144/84 (104) Pulse Ox 95 O2 Delivery Room Air Capillary Refill : Height, Weight, BMI Height: 5'4" Weight: 185lbs. oz. [id number]; 32.84 BMI Method:Stated General Appearance: No Apparent Distress, WD/WN, Chronically ill, Obese Eyes: Bilateral Eye Normal Inspection, Bilateral Eye PERRL HEENT: PERRL/EOMI, Normal ENT Inspection, Pharynx Normal Neck: Full Range of Motion, Normal Inspection, Non Tender, Supple, Carotid Bruit Respiratory: Chest Non Tender, Lungs Clear, Normal Breath Sounds, No Accessory Muscle Use, No Respiratory Distress Cardiovascular: Regular Rate, Rhythm, No Gallop, No JVD, No Murmur, Normal Peripheral Pulses Gastrointestinal: Normal Bowel Sounds, No Organomegaly, No Pulsatile Mass, Non Tender, Soft, Other (Fluid wave) Back: Normal Inspection, No CVA Tenderness, No Vertebral Tenderness Extremity: Normal Capillary Refill, Normal Inspection, Normal Range of Motion, Non Tender, No Calf Tenderness, Calf Tenderness ( right leg), Swelling ( right leg) Neurologic/Psychiatric: Alert, Oriented x3, No Motor/Sensory Deficits, Normal Mood/Affect Skin: Normal Color, Warm/Dry Lymphatic: No Adenopathy Results Results/Procedures Labs Laboratory Tests 05/14/23 19:10 Patient resulted labs reviewed. Assessment/Plan Admission Diagnosis Assessment: Extensive right lower extremity DVT Abdominal ascites with liver mass noted on ultrasound Hypertension Obesity Hyperlipidemia History of breast cancer History of uterine cancer Plan: Lovenox therapeutic dose CT scans Evaluate liver mass Admission Status: Inpatient Order (span 2 midnights) Reason for Inpatient Admission: Extensive DVT with abdominal ascites Clinical Quality Measures DVT/VTE Risk/Contraindication: Contraindications-Mechi: Other *list below* Other: DVT SENAIT HUYNH DO May 14, 2023 19:00
[2023-05-14 19:17] LABS: BASOPHILS # (AUTO) 0.1 10^3/uL (0.0-0.1); BASOPHILS % (AUTO) 1 % (0-10); EOSINOPHILS % (AUTO) 0 % (0-10); HEMATOCRIT 39 % (35-52); HEMOGLOBIN 12.7 g/dL (11.5-16.0); LYMPHOCYTES # (AUTO) 0.8 10^3/uL (1.0-4.0); LYMPHOCYTES % (AUTO) 10 % (12-44); MEAN CORPUSCULAR HEMOGLOBIN 29 pg (25-34); MEAN CORPUSCULAR HGB CONC 33 g/dL (32-36); MEAN CORPUSCULAR VOLUME 89 fL (80-99); MEAN PLATELET VOLUME 9.1 fL (9.0-12.2); MONOCYTES # (AUTO) 0.6 10^3/uL (0.0-1.0); MONOCYTES % (AUTO) 8 % (0-12); NEUTROPHILS # (AUTO) 6.6 10^3/uL (1.8-7.8); NEUTROPHILS % (AUTO) 81 % (42-75); PLATELET COUNT 234 10^3/uL (130-400); WHITE BLOOD COUNT 8.1 10^3/uL (4.3-11.0)
[2023-05-14] MEDS ORDERED: CETI10TA49 PO (19:19)
[2023-05-14] MEDS ORDERED: LOSA100T58 PO (19:21)
[2023-05-14 19:33] LABS: INR 1.1 (0.8-1.4); PROTHROMBIN TIME PATIENT 14.6 SEC (12.2-14.7)
[2023-05-14 19:37] LABS: ALBUMIN 4.2 GM/DL (3.2-4.5)
[2023-05-14 19:38] LABS: CALCIUM 9.9 MG/DL (8.5-10.1)
[2023-05-14 19:39] LABS: TOTAL PROTEIN 7.7 GM/DL (6.4-8.2)
[2023-05-14 19:41] VITALS: BP 144/84
[2023-05-14 19:41] LABS: BILIRUBIN,TOTAL 0.5 MG/DL (0.1-1.0)
[2023-05-14 19:43] LABS: CREATININE SERUM 1.26 MG/DL (0.60-1.30)
[2023-05-14] MEDS ORDERED: IOHEXOL 350 MG/ML 100 ML (OMNIPAQUE 350) VIAL IV ONE (20:00)
[2023-05-14] MEDS ORDERED: NS 100 ML (IVPB) BAG IV ONE (20:00)
[2023-05-14] MEDS: DOCUSATE SODIUM 100 MG (COLACE) CAP PO SCH (20:25)
[2023-05-14] MEDS: ENOXAPARIN 80 MG/0.8 ML (LOVENOX) SYR SC SCH (20:25)
[2023-05-14] MEDS: SENNOSIDES 8.6 MG (SENOKOT) TAB PO SCH (20:26)
--- NOTE | 2023-05-14 21:02 | Diagnostic Imaging Report ---
INDICATION: Deep venous thrombosis. CTA chest, abdomen and pelvis Thin axial sections through the chest, abdomen and pelvis are obtained following intravenous contrast bolus. Multiplanar MIP images were reconstructed and reviewed. All CT scans use one or more of the following dose optimizing techniques: automated exposure control, MA and/or KvP adjustment based on patient size and exam type or iterative reconstruction. FINDINGS: There is a 4 mm noncalcified nodule in the posterior aspect of the right upper lobe. There is a 1 cm noncalcified nodule in the medial aspect of the right lower lobe. There is no pleural or pericardial fluid. There is no pneumothorax. Heart size is normal. The ascending aorta measures up to 3.4 cm. There is no dissection. There is no pathologically enlarged adenopathy in the chest. There are several low-density lesions in the liver. There is a very large lesion in the right lobe highly suspect for neoplasm. This measures up to 10 cm. There is no biliary ductal dilatation. There is extensive cholelithiasis. There is perihepatic and perisplenic free fluid. Spleen is normal. Pancreas is unremarkable. There appears to be some right hydronephrosis. The left kidney is normal. Aorta is nonaneurysmal. Bowel gas pattern is nonspecific. Bladder is normal. There is no pelvic mass or adenopathy. There are degenerative changes in the spine. IMPRESSION: A 1 cm mass in the medial aspect of the right lower lobe concerning for neoplasm. Further evaluation with PET scan should be considered. Additionally, there is a 4 mm nodule in the right upper lobe, likely granuloma. Moderate amount of abdominal ascites. Large mass in the liver concerning for neoplasm. There are additional hepatic cysts. Cholelithiasis. No other acute abnormality in the chest, abdomen, or pelvis. Dictated by: Dictated on workstation # [id number]
[2023-05-14 23:01] VITALS: BP 144/84
[2023-05-14] MEDS ORDERED: RT-ALBUTEROL/IPRATROPIUM 3 ML (DUONEB) VIAL INH PRN (23:15)
[2023-05-14 23:34] VITALS: BP 144/78
[2023-05-15 03:21] VITALS: BP 126/76
[2023-05-15] MEDS: ENOXAPARIN 80 MG/0.8 ML (LOVENOX) SYR SC SCH (06:04)
[2023-05-15 06:16] LABS: BASOPHILS % (AUTO) 1 % (0-10); EOSINOPHILS # (AUTO) 0.1 10^3/uL (0.0-0.3); EOSINOPHILS % (AUTO) 1 % (0-10); HEMATOCRIT 35 % (35-52); HEMOGLOBIN 11.4 g/dL (11.5-16.0); LYMPHOCYTES # (AUTO) 1.1 10^3/uL (1.0-4.0); LYMPHOCYTES % (AUTO) 14 % (12-44); MEAN CORPUSCULAR HEMOGLOBIN 29 pg (25-34); MEAN CORPUSCULAR HGB CONC 33 g/dL (32-36); MEAN CORPUSCULAR VOLUME 88 fL (80-99); MEAN PLATELET VOLUME 9.3 fL (9.0-12.2); MONOCYTES # (AUTO) 0.6 10^3/uL (0.0-1.0); MONOCYTES % (AUTO) 8 % (0-12); NEUTROPHILS # (AUTO) 5.7 10^3/uL (1.8-7.8); NEUTROPHILS % (AUTO) 76 % (42-75); PLATELET COUNT 212 10^3/uL (130-400); WHITE BLOOD COUNT 7.5 10^3/uL (4.3-11.0)
[2023-05-15 06:38] LABS: ALBUMIN 3.7 GM/DL (3.2-4.5); BILIRUBIN,TOTAL 0.6 MG/DL (0.1-1.0); CALCIUM 9.3 MG/DL (8.5-10.1); CREATININE SERUM 1.04 MG/DL (0.60-1.30); POTASSIUM 3.8 MMOL/L (3.6-5.0); TOTAL PROTEIN 6.9 GM/DL (6.4-8.2)
[2023-05-15 07:25] VITALS: BP 132/80
[2023-05-15] MEDS: SENNOSIDES 8.6 MG (SENOKOT) TAB PO SCH ×2 (08:37→19:36)
[2023-05-15] MEDS: DOCUSATE SODIUM 100 MG (COLACE) CAP PO SCH ×2 (08:37→19:35)
[2023-05-15] MEDS ORDERED: RUTI1TAB PO (09:27)
[2023-05-15] MEDS ORDERED: OMEG1CAP58 PO (09:27)
[2023-05-15] MEDS ORDERED: MULT-1067 PO (09:27)
[2023-05-15] MEDS ORDERED: PANT40TA52 PO (09:27)
--- NOTE | 2023-05-15 09:51 | Progress Note ---
Subjective Date Seen by a Provider: May 15, 2023 Time Seen by a Provider: 09:00 Subjective/Events-last exam Patient doing a lot better Lovenox 2 doses given since admission at the bedside I updated her in depth regarding the CT scan results and the presumed cancer diagnosis. Dr. Ruiz will perform ultrasound or CT-guided biopsy of the peritoneal mass She had not seen Dr. Camejo for a while since she had released her since her breast cancer has been in remission for so long Review of Systems General: Fatigue, Malaise Gastrointestinal: Abdominal Pain Musculoskeletal: leg pain Objective Exam Last Set of Vital Signs Vital Signs Date Time Temp Pulse Resp B/P (MAP) Pulse Ox O2 Delivery O2 Flow Rate FiO2 05/15/23 08:57 96 Room Air 05/15/23 07:34 94 05/15/23 07:25 36.3 20 132/80 (97) Capillary Refill : I&O Intake and Output 05/15/23 00:00 Intake Total 100 ml Balance 100 ml Intake Oral 100 ml # Voids 1 Daily Weight Change No General: Alert, Oriented X3, Cooperative, No Acute Distress Lungs: Clear to Auscultation, Normal Air Movement Heart: Regular Rate, Normal S1, Normal S2, No Murmurs Psych/Mental Status: Mental Status NL, Mood NL Results Lab Laboratory Tests 05/14/23 19:10: White Blood Count 8.1, Red Blood Count 4.34, Hemoglobin 12.7, Hematocrit 39, Mean Corpuscular Volume 89, Mean Corpuscular Hemoglobin 29, Mean Corpuscular Hemoglobin Concent 33, Red Cell Distribution Width 13.2, Platelet Count 234, Mean Platelet Volume 9.1, Immature Granulocyte % (Auto) 0, Neutrophils (%) (Auto) 81H, Lymphocytes (%) (Auto) 10L, Monocytes (%) (Auto) 8, Eosinophils (%) (Auto) 0, Basophils (%) (Auto) 1, Neutrophils # (Auto) 6.6, Lymphocytes # (Auto) 0.8L, Monocytes # (Auto) 0.6, Eosinophils # (Auto) 0.0, Basophils # (Auto) 0.1, Immature Granulocyte # (Auto) 0.0, Prothrombin Time 14.6, INR Comment 1.1, Activated Partial Thromboplast Time 30, Sodium Level 138, Potassium Level 4.0, Chloride Level 105, Carbon Dioxide Level 22, Anion Gap 11, Blood Urea Nitrogen 14, Creatinine 1.26, Estimat Glomerular Filtration Rate 45, BUN/Creatinine Ratio 11, Glucose Level 112H, Calcium Level 9.9, Corrected Calcium 9.7, Total Bilirubin 0.5, Aspartate Amino Transf (AST/SGOT) 74H, Alanine Aminotransferase (ALT/SGPT) 56H, Alkaline Phosphatase 99, Total Protein 7.7, Albumin 4.2 05/15/23 06:05: White Blood Count 7.5, Red Blood Count 3.95, Hemoglobin 11.4L, Hematocrit 35, Mean Corpuscular Volume 88, Mean Corpuscular Hemoglobin 29, Mean Corpuscular Hemoglobin Concent 33, Red Cell Distribution Width 13.4, Platelet Count 212, Mean Platelet Volume 9.3, Immature Granulocyte % (Auto) 0, Neutrophils (%) (Auto) 76H, Lymphocytes (%) (Auto) 14, Monocytes (%) (Auto) 8, Eosinophils (%) (Auto) 1, Basophils (%) (Auto) 1, Neutrophils # (Auto) 5.7, Lymphocytes # (Auto) 1.1, Monocytes # (Auto) 0.6, Eosinophils # (Auto) 0.1, Basophils # (Auto) 0.0, Immature Granulocyte # (Auto) 0.0, Sodium Level 137, Potassium Level 3.8, Chloride Level 106, Carbon Dioxide Level 22, Anion Gap 9, Blood Urea Nitrogen 13, Creatinine 1.04, Estimat Glomerular Filtration Rate 57, BUN/Creatinine Ratio 13, Glucose Level 85, Calcium Level 9.3, Corrected Calcium 9.5, Total Bilirubin 0.6, Aspartate Amino Transf (AST/SGOT) 62H, Alanine Aminotransferase (ALT/SGPT) 45, Alkaline Phosphatase 84, Total Protein 6.9, Albumin 3.7 Assessment/Plan Assessment/Plan Assess & Plan/Chief Complaint Assessment: Extensive right lower extremity DVT Abdominal ascites with liver mass noted on ultrasoundCT scan shows extensive lymphadenopathy and peritoneal masses Hypertension Obesity Hyperlipidemia History of breast cancer History of uterine cancer Plan: Lovenox therapeutic dose Dr. Ruiz for peritoneal mass biopsy Clinical Quality Measures DVT/VTE Risk/Contraindication: Contraindications-Mechi: Other *list below* Other: DVT SHAMAR DAHL DO May 15, 2023 09:51
[2023-05-15 11:18] VITALS: BP 122/68
[2023-05-15] MEDS: diphenhydrAMINE 2% 30 GM CR (ALLERGY CREAM) TOP SCH ×3 (11:25→19:40)
[2023-05-15] MEDS ORDERED: PATIENT MAY USE OWN MEDS, ALL MC SCH (13:45)
[2023-05-15 15:55] VITALS: BP 149/77
[2023-05-15] MEDS: ONDANSETRON 4 MG/2 ML (SDV) Z0FRAN IV PRN (17:11)
[2023-05-15] MEDS ORDERED: MULTIVIT W/MINERALS TAB (THERAGRAN M) ONE (19:34)
[2023-05-15] MEDS: KCL 10 MEQ TAB (MICRO K) PO SCH (19:35)
[2023-05-15] MEDS: OMEGA 3 (FISH OIL) 1000 MG CAP PO SCH (19:35)
[2023-05-15] MEDS: AtorvaSTATin TABLET 10 MG TABLET PO SCH (19:35)
[2023-05-15] MEDS: LOSARTAN 100 MG (COZAAR) TABLET PO SCH (19:35)
[2023-05-15] MEDS: [UNRECOGNIZED DRUG - REMARK] PO SCH (19:37)
[2023-05-15] MEDS: [UNRECOGNIZED DRUG - REMARK] PO SCH (19:37)
[2023-05-15] MEDS: [UNRECOGNIZED DRUG - REMARK] PO SCH (19:38)
[2023-05-15] MEDS: [UNRECOGNIZED DRUG - REMARK] PO SCH (19:39)
[2023-05-15 19:43] VITALS: BP 147/65
[2023-05-15 23:09] VITALS: BP 105/64
[2023-05-16] VITALS (9 sets, daily range): BP systolic 117–138; BP diastolic 64–84
[2023-05-16 05:50] LABS: BASOPHILS # (AUTO) 0.1 10^3/uL (0.0-0.1); BASOPHILS % (AUTO) 1 % (0-10); EOSINOPHILS # (AUTO) 0.1 10^3/uL (0.0-0.3); EOSINOPHILS % (AUTO) 1 % (0-10); HEMATOCRIT 34 % (35-52); LYMPHOCYTES # (AUTO) 1.5 10^3/uL (1.0-4.0); LYMPHOCYTES % (AUTO) 20 % (12-44); MEAN CORPUSCULAR HEMOGLOBIN 29 pg (25-34); MEAN CORPUSCULAR HGB CONC 33 g/dL (32-36); MEAN CORPUSCULAR VOLUME 88 fL (80-99); MEAN PLATELET VOLUME 9.2 fL (9.0-12.2); MONOCYTES # (AUTO) 0.6 10^3/uL (0.0-1.0); MONOCYTES % (AUTO) 8 % (0-12); NEUTROPHILS # (AUTO) 5.2 10^3/uL (1.8-7.8); NEUTROPHILS % (AUTO) 70 % (42-75); PLATELET COUNT 221 10^3/uL (130-400); WHITE BLOOD COUNT 7.4 10^3/uL (4.3-11.0)
--- NOTE | 2023-05-16 05:53 | Progress Note ---
Subjective Date Seen by a Provider: May 16, 2023 Time Seen by a Provider: 11:00 Subjective/Events-last exam Patient doing pretty well Restarting Lovenox soon Peritoneal mass biopsy CT-guided today by Dr. Ruiz No other concerns Review of Systems General: Fatigue, Malaise Gastrointestinal: Abdominal Pain Musculoskeletal: leg pain Objective Exam Last Set of Vital Signs Vital Signs Date Time Temp Pulse Resp B/P (MAP) Pulse Ox O2 Delivery O2 Flow Rate FiO2 05/16/23 03:23 36.4 90 19 130/78 (95) 100 Room Air Capillary Refill : I&O Intake and Output 05/16/23 00:00 Intake Total 1920 ml Balance 1920 ml Intake Oral 1920 ml # Voids 9 # Bowel Movements 3 General: Alert, Oriented X3, Cooperative, No Acute Distress Lungs: Clear to Auscultation, Normal Air Movement Heart: Regular Rate, Normal S1, Normal S2, No Murmurs Psych/Mental Status: Mental Status NL, Mood NL Results Lab Laboratory Tests 05/15/23 06:05: White Blood Count 7.5, Red Blood Count 3.95, Hemoglobin 11.4L, Hematocrit 35, Mean Corpuscular Volume 88, Mean Corpuscular Hemoglobin 29, Mean Corpuscular Hemoglobin Concent 33, Red Cell Distribution Width 13.4, Platelet Count 212, Mean Platelet Volume 9.3, Immature Granulocyte % (Auto) 0, Neutrophils (%) (Auto) 76H, Lymphocytes (%) (Auto) 14, Monocytes (%) (Auto) 8, Eosinophils (%) (Auto) 1, Basophils (%) (Auto) 1, Neutrophils # (Auto) 5.7, Lymphocytes # (Auto) 1.1, Monocytes # (Auto) 0.6, Eosinophils # (Auto) 0.1, Basophils # (Auto) 0.0, Immature Granulocyte # (Auto) 0.0, Sodium Level 137, Potassium Level 3.8, Chloride Level 106, Carbon Dioxide Level 22, Anion Gap 9, Blood Urea Nitrogen 13, Creatinine 1.04, Estimat Glomerular Filtration Rate 57, BUN/Creatinine Ratio 13, Glucose Level 85, Calcium Level 9.3, Corrected Calcium 9.5, Total Bilirubin 0.6, Aspartate Amino Transf (AST/SGOT) 62H, Alanine Aminotransferase (ALT/SGPT) 45, Alkaline Phosphatase 84, Total Protein 6.9, Albumin 3.7 05/16/23 05:34: Assessment/Plan Assessment/Plan Assess & Plan/Chief Complaint Assessment: Extensive right lower extremity DVT Abdominal ascites with liver mass noted on ultrasoundCT scan shows extensive lymphadenopathy and peritoneal massesStatus post peritoneal mass biopsy CT- guided on 05/16/2023 Hypertension Obesity Hyperlipidemia History of breast cancer History of uterine cancer Plan: Lovenox therapeutic dose held due to peritoneal mass biopsy restart tomorrow 05/17/2023 Dr. Ruiz for peritoneal mass biopsy Clinical Quality Measures DVT/VTE Risk/Contraindication: Contraindications-Mechi: Other *list below* Other: DVT SHAMAR DAHL DO May 16, 2023 05:53
[2023-05-16 05:55] LABS: INR 1.1 (0.8-1.4)
[2023-05-16 06:12] LABS: ALBUMIN 3.5 GM/DL (3.2-4.5); BILIRUBIN,TOTAL 0.5 MG/DL (0.1-1.0); CALCIUM 9.2 MG/DL (8.5-10.1); CREATININE SERUM 1.17 MG/DL (0.60-1.30); POTASSIUM 4.1 MMOL/L (3.6-5.0); TOTAL PROTEIN 6.5 GM/DL (6.4-8.2)
[2023-05-16] MEDS ORDERED: LORATADINE (CLARITIN) 10 MG TAB PO SCH (09:00)
[2023-05-16] MEDS: [UNRECOGNIZED DRUG - REMARK] PO SCH (09:56)
[2023-05-16] MEDS: [UNRECOGNIZED DRUG - REMARK] PO SCH ×2 (09:56→20:56)
[2023-05-16] MEDS: [UNRECOGNIZED DRUG - REMARK] PO SCH ×2 (09:56→20:56)
[2023-05-16] MEDS: diphenhydrAMINE 2% 30 GM CR (ALLERGY CREAM) TOP SCH ×3 (09:57→21:01)
[2023-05-16] MEDS: PANTOPRAZOLE 40 MG (PROTONIX) TAB PO SCH (09:57)
[2023-05-16] MEDS: KCL 10 MEQ TAB (MICRO K) PO SCH ×2 (09:57→20:57)
[2023-05-16] MEDS: SENNOSIDES 8.6 MG (SENOKOT) TAB PO SCH ×2 (09:57→21:22)
[2023-05-16] MEDS: DOCUSATE SODIUM 100 MG (COLACE) CAP PO SCH ×2 (09:57→21:22)
[2023-05-16] MEDS ORDERED: NS IV 1000 ML 1,000 ML IV STA (14:00)
[2023-05-16] MEDS ORDERED: MIDAZOLAM 2 MG/2 ML (VERSED) VIAL IVP ONE (14:00)
[2023-05-16] MEDS ORDERED: LIDOCAINE 1% INJ 10 ML VIAL INJ ONE (14:00)
[2023-05-16] MEDS ORDERED: fentaNYL INJ 100 MCG/2 ML AMP IVP ONE (14:00)
--- NOTE | 2023-05-16 15:18 | Diagnostic Imaging Report ---
INDICATION: Abdominal mass. Patient presents for CT-guided biopsy. TECHNIQUE: All CT scans use one or more of the following dose optimizing techniques: Automated exposure control, MA and/or KvP adjustment based on patient size and exam type or iterative reconstruction. The patient was brought to the CT suite and placed on the table in the supine position. Axial imaging through the abdomen was performed to evaluate appropriate entry site. The procedure was performed utilizing conscious sedation with radiology nursing and constant patient monitoring. Patient was given a total of 50 mcg of fentanyl intravenously and 1 mg of Versed intravenously. Total procedure time was approximately 7 minutes. An 18-gauge coaxial needle was placed along the margin of the soft tissue mass in the anterior right abdomen. Five core biopsies were obtained. The needle was removed, and hemostasis was obtained. Patient tolerated the procedure well and left the department in stable condition. IMPRESSION: Successful CT-guided core biopsy of the peritoneal implant in the anterior right abdomen. Pathology results are currently pending. Dictated by: Dictated on workstation # [id number]
[2023-05-16] MEDS ORDERED: MULTIVIT W/MINERALS TAB (THERAGRAN M) ONE (19:31)
[2023-05-16] MEDS: AtorvaSTATin TABLET 10 MG TABLET PO SCH (20:57)
[2023-05-16] MEDS: LOSARTAN 100 MG (COZAAR) TABLET PO SCH (20:57)
[2023-05-16] MEDS: [UNRECOGNIZED DRUG - REMARK] PO SCH (20:58)
[2023-05-16] MEDS: [UNRECOGNIZED DRUG - REMARK] PO SCH (20:59)
[2023-05-16] MEDS: OMEGA 3 (FISH OIL) 1000 MG CAP PO SCH (21:22)
[2023-05-17 00:23] VITALS: BP 115/75
[2023-05-17 04:47] VITALS: BP 127/58
[2023-05-17 05:59] LABS: BASOPHILS # (AUTO) 0.1 10^3/uL (0.0-0.1); BASOPHILS % (AUTO) 1 % (0-10); EOSINOPHILS # (AUTO) 0.1 10^3/uL (0.0-0.3); EOSINOPHILS % (AUTO) 1 % (0-10); HEMATOCRIT 34 % (35-52); LYMPHOCYTES # (AUTO) 1.3 10^3/uL (1.0-4.0); LYMPHOCYTES % (AUTO) 17 % (12-44); MEAN CORPUSCULAR HEMOGLOBIN 29 pg (25-34); MEAN CORPUSCULAR HGB CONC 33 g/dL (32-36); MEAN CORPUSCULAR VOLUME 89 fL (80-99); MEAN PLATELET VOLUME 9.8 fL (9.0-12.2); MONOCYTES # (AUTO) 0.6 10^3/uL (0.0-1.0); MONOCYTES % (AUTO) 8 % (0-12); NEUTROPHILS # (AUTO) 5.6 10^3/uL (1.8-7.8); NEUTROPHILS % (AUTO) 72 % (42-75); PLATELET COUNT 243 10^3/uL (130-400); WHITE BLOOD COUNT 7.7 10^3/uL (4.3-11.0)
[2023-05-17 06:10] LABS: ALBUMIN 3.7 GM/DL (3.2-4.5)
[2023-05-17 06:11] LABS: POTASSIUM 3.9 MMOL/L (3.6-5.0)
[2023-05-17 06:12] LABS: CALCIUM 9.4 MG/DL (8.5-10.1)
[2023-05-17 06:13] LABS: TOTAL PROTEIN 6.8 GM/DL (6.4-8.2)
[2023-05-17 06:15] LABS: BILIRUBIN,TOTAL 0.5 MG/DL (0.1-1.0)
[2023-05-17 06:17] LABS: CREATININE SERUM 1.25 MG/DL (0.60-1.30)
[2023-05-17 07:29] VITALS: BP 146/63
[2023-05-17] MEDS: KCL 10 MEQ TAB (MICRO K) PO SCH (08:26)
[2023-05-17] MEDS: [UNRECOGNIZED DRUG - REMARK] PO SCH (08:27)
[2023-05-17] MEDS: PANTOPRAZOLE 40 MG (PROTONIX) TAB PO SCH (08:27)
[2023-05-17] MEDS: DOCUSATE SODIUM 100 MG (COLACE) CAP PO SCH (08:27)
[2023-05-17] MEDS: SENNOSIDES 8.6 MG (SENOKOT) TAB PO SCH (08:27)
[2023-05-17] MEDS: [UNRECOGNIZED DRUG - REMARK] PO SCH (08:27)
[2023-05-17] MEDS: [UNRECOGNIZED DRUG - REMARK] PO SCH (08:29)
[2023-05-17] MEDS: diphenhydrAMINE 2% 30 GM CR (ALLERGY CREAM) TOP SCH ×2 (08:32→13:21)
[2023-05-17] MEDS: ONDANSETRON 4 MG/2 ML (SDV) Z0FRAN IV PRN (08:42)
[2023-05-17] MEDS ORDERED: APIXABAN 5 MG (ELIQUIS) TABLET PO SCH (09:00)
[2023-05-17 11:53] VITALS: BP 121/74
[2023-05-17] MEDS ORDERED: APIX5TAB PO (11:55)
[2023-05-17] MEDS ORDERED: ONDA8TAB13 SL (11:55)
--- NOTE | 2023-05-17 11:57 | Discharge Summary ---
Diagnosis/Chief Complaint Date of Admission May 14, 2023 at 18:31 Date of Discharge Discharge Date: May 17, 2023 Discharge Diagnosis Assessment: Extensive right lower extremity DVT Abdominal ascites with liver mass noted on ultrasoundCT scan shows extensive lymphadenopathy and peritoneal massesStatus post peritoneal mass biopsy CT- guided on 05/16/2023 Hypertension Obesity Hyperlipidemia History of breast cancer History of uterine cancer Discharge Summary Discharge Physical Examination Allergies: Coded Allergies: letrozole (Verified Allergy, Unknown, RASH, 05/14/23) Uncoded Allergies: TAPE (Allergy, Mild, BLISTERS, 05/27/09) Vitals & I&Os Vital Signs Date Time Temp Pulse Resp B/P (MAP) Pulse Ox O2 Delivery O2 Flow Rate FiO2 05/17/23 14:07 36.5 95 20 121/74 98 Room Air 2.00 General Appearance: Alert, Oriented X3, Cooperative Respiratory: Clear to Auscultation Cardiovascular: Regular Rate Hospital Course Was the Problem List Reviewed?: Yes Hospital course: Patient had an uneventful hospital course after she was directly admitted for right leg DVT. Liver mass noted on ultrasound so CT scan was obtained presumed neoplastic process in her abdomen. Peritoneal mass was biopsied CT-guided by Dr. Ruiz. Overall she did well she was switched to anticoagulation after Lovenox and she was discharged in improved condition with close follow-up for pathology results. Labs (last 24 hrs) Laboratory Tests 05/14/23 19:10: White Blood Count 8.1, Red Blood Count 4.34, Hemoglobin 12.7, Hematocrit 39, Mean Corpuscular Volume 89, Mean Corpuscular Hemoglobin 29, Mean Corpuscular Hemoglobin Concent 33, Red Cell Distribution Width 13.2, Platelet Count 234, Mean Platelet Volume 9.1, Immature Granulocyte % (Auto) 0, Neutrophils (%) (Auto) 81H, Lymphocytes (%) (Auto) 10L, Monocytes (%) (Auto) 8, Eosinophils (%) (Auto) 0, Basophils (%) (Auto) 1, Neutrophils # (Auto) 6.6, Lymphocytes # (Auto) 0.8L, Monocytes # (Auto) 0.6, Eosinophils # (Auto) 0.0, Basophils # (Auto) 0.1, Immature Granulocyte # (Auto) 0.0, Prothrombin Time 14.6, INR Comment 1.1, Activated Partial Thromboplast Time 30, Sodium Level 138, Potassium Level 4.0, Chloride Level 105, Carbon Dioxide Level 22, Anion Gap 11, Blood Urea Nitrogen 14, Creatinine 1.26, Estimat Glomerular Filtration Rate 45, BUN/Creatinine Ratio 11, Glucose Level 112H, Calcium Level 9.9, Corrected Calcium 9.7, Total Bilirubin 0.5, Aspartate Amino Transf (AST/SGOT) 74H, Alanine Aminotransferase (ALT/SGPT) 56H, Alkaline Phosphatase 99, Total Protein 7.7, Albumin 4.2 05/15/23 06:05: White Blood Count 7.5, Red Blood Count 3.95, Hemoglobin 11.4L, Hematocrit 35, Mean Corpuscular Volume 88, Mean Corpuscular Hemoglobin 29, Mean Corpuscular Hemoglobin Concent 33, Red Cell Distribution Width 13.4, Platelet Count 212, Mean Platelet Volume 9.3, Immature Granulocyte % (Auto) 0, Neutrophils (%) (Auto) 76H, Lymphocytes (%) (Auto) 14, Monocytes (%) (Auto) 8, Eosinophils (%) (Auto) 1, Basophils (%) (Auto) 1, Neutrophils # (Auto) 5.7, Lymphocytes # (Auto) 1.1, Monocytes # (Auto) 0.6, Eosinophils # (Auto) 0.1, Basophils # (Auto) 0.0, Immature Granulocyte # (Auto) 0.0, Sodium Level 137, Potassium Level 3.8, Chloride Level 106, Carbon Dioxide Level 22, Anion Gap 9, Blood Urea Nitrogen 13, Creatinine 1.04, Estimat Glomerular Filtration Rate 57, BUN/Creatinine Ratio 13, Glucose Level 85, Calcium Level 9.3, Corrected Calcium 9.5, Total Bilirubin 0.6, Aspartate Amino Transf (AST/SGOT) 62H, Alanine Aminotransferase (ALT/SGPT) 45, Alkaline Phosphatase 84, Total Protein 6.9, Albumin 3.7 05/16/23 05:34: White Blood Count 7.4, Red Blood Count 3.80, Hemoglobin 11.0L, Hematocrit 34L, Mean Corpuscular Volume 88, Mean Corpuscular Hemoglobin 29, Mean Corpuscular Hemoglobin Concent 33, Red Cell Distribution Width 13.3, Platelet Count 221, Mean Platelet Volume 9.2, Immature Granulocyte % (Auto) 0, Neutrophils (%) (Auto) 70, Lymphocytes (%) (Auto) 20, Monocytes (%) (Auto) 8, Eosinophils (%) (Auto) 1, Basophils (%) (Auto) 1, Neutrophils # (Auto) 5.2, Lymphocytes # (Auto) 1.5, Monocytes # (Auto) 0.6, Eosinophils # (Auto) 0.1, Basophils # (Auto) 0.1, Immature Granulocyte # (Auto) 0.0, Prothrombin Time 14.0, INR Comment 1.1, Sodium Level 137, Potassium Level 4.1, Chloride Level 106, Carbon Dioxide Level 23, Anion Gap 8, Blood Urea Nitrogen 14, Creatinine 1.17, Estimat Glomerular Filtration Rate 50, BUN/Creatinine Ratio 12, Glucose Level 85, Calcium Level 9.2, Corrected Calcium 9.6, Total Bilirubin 0.5, Aspartate Amino Transf (AST/SGOT) 57H, Alanine Aminotransferase (ALT/SGPT) 39, Alkaline Phosphatase 81, Total Protein 6.5, Albumin 3.5 05/17/23 05:10: White Blood Count 7.7, Red Blood Count 3.82, Hemoglobin 11.0L, Hematocrit 34L, Mean Corpuscular Volume 89, Mean Corpuscular Hemoglobin 29, Mean Corpuscular Hemoglobin Concent 33, Red Cell Distribution Width 13.4, Platelet Count 243, Mean Platelet Volume 9.8, Immature Granulocyte % (Auto) 0, Neutrophils (%) (Auto) 72, Lymphocytes (%) (Auto) 17, Monocytes (%) (Auto) 8, Eosinophils (%) (Auto) 1, Basophils (%) (Auto) 1, Neutrophils # (Auto) 5.6, Lymphocytes # (Auto) 1.3, Monocytes # (Auto) 0.6, Eosinophils # (Auto) 0.1, Basophils # (Auto) 0.1, Immature Granulocyte # (Auto) 0.0, Sodium Level 137, Potassium Level 3.9, Chloride Level 105, Carbon Dioxide Level 21, Anion Gap 11, Blood Urea Nitrogen 16, Creatinine 1.25, Estimat Glomerular Filtration Rate 46, BUN/Creatinine Ratio 13, Glucose Level 92, Calcium Level 9.4, Corrected Calcium 9.6, Total Bilirubin 0.5, Aspartate Amino Transf (AST/SGOT) 80H, Alanine Aminotransferase (ALT/SGPT) 53, Alkaline Phosphatase 89, Total Protein 6.8, Albumin 3.7 Pending Labs Laboratory Tests 05/14/23 19:10: White Blood Count 8.1, Red Blood Count 4.34, Hemoglobin 12.7, Hematocrit 39, Mean Corpuscular Volume 89, Mean Corpuscular Hemoglobin 29, Mean Corpuscular Hemoglobin Concent 33, Red Cell Distribution Width 13.2, Platelet Count 234, Mean Platelet Volume 9.1, Immature Granulocyte % (Auto) 0, Neutrophils (%) (Auto) 81, Lymphocytes (%) (Auto) 10, Monocytes (%) (Auto) 8, Eosinophils (%) (Auto) 0, Basophils (%) (Auto) 1, Neutrophils # (Auto) 6.6, Lymphocytes # (Auto) 0.8, Monocytes # (Auto) 0.6, Eosinophils # (Auto) 0.0, Basophils # (Auto) 0.1, Immature Granulocyte # (Auto) 0.0, Prothrombin Time 14.6, INR Comment 1.1, Activated Partial Thromboplast Time 30, Sodium Level 138, Potassium Level 4.0, Chloride Level 105, Carbon Dioxide Level 22, Anion Gap 11, Blood Urea Nitrogen 14, Creatinine 1.26, Estimat Glomerular Filtration Rate 45, BUN/Creatinine Ratio 11, Glucose Level 112, Calcium Level 9.9, Corrected Calcium 9.7, Total Bilirubin 0.5, Aspartate Amino Transf (AST/SGOT) 74, Alanine Aminotransferase (ALT/SGPT) 5 6, Alkaline Phosphatase 99, Total Protein 7.7, Albumin 4.2 05/15/23 06:05: White Blood Count 7.5, Red Blood Count 3.95, Hemoglobin 11.4, Hematocrit 35, Mean Corpuscular Volume 88, Mean Corpuscular Hemoglobin 29, Mean Corpuscular Hemoglobin Concent 33, Red Cell Distribution Width 13.4, Platelet Count 212, Mean Platelet Volume 9.3, Immature Granulocyte % (Auto) 0, Neutrophils (%) (Auto) 76, Lymphocytes (%) (Auto) 14, Monocytes (%) (Auto) 8, Eosinophils (%) (Auto) 1, Basophils (%) (Auto) 1, Neutrophils # (Auto) 5.7, Lymphocytes # (Auto) 1.1, Monocytes # (Auto) 0.6, Eosinophils # (Auto) 0.1, Basophils # (Auto) 0.0, Immature Granulocyte # (Auto) 0.0, Sodium Level 137, Potassium Level 3.8, Chloride Level 106, Carbon Dioxide Level 22, Anion Gap 9, Blood Urea Nitrogen 13, Creatinine 1.04, Estimat Glomerular Filtration Rate 57, BUN/Creatinine Ratio 13, Glucose Level 85, Calcium Level 9.3, Corrected Calcium 9.5, Total Bilirubin 0.6, Aspartate Amino Transf (AST/SGOT) 62, Alanine Aminotransferase (ALT/SGPT) 45, Alkaline Phosphatase 84, Total Protein 6.9, Albumin 3.7 05/16/23 05:34: White Blood Count 7.4, Red Blood Count 3.80, Hemoglobin 11.0, Hematocrit 34, Mean Corpuscular Volume 88, Mean Corpuscular Hemoglobin 29, Mean Corpuscular Hemoglobin Concent 33, Red Cell Distribution Width 13.3, Platelet Count 221, Mean Platelet Volume 9.2, Immature Granulocyte % (Auto) 0, Neutrophils (%) (Auto) 70, Lymphocytes (%) (Auto) 20, Monocytes (%) (Auto) 8, Eosinophils (%) (Auto) 1, Basophils (%) (Auto) 1, Neutrophils # (Auto) 5.2, Lymphocytes # (Auto) 1.5, Monocytes # (Auto) 0.6, Eosinophils # (Auto) 0.1, Basophils # (Auto) 0.1, Immature Granulocyte # (Auto) 0.0, Prothrombin Time 14.0, INR Comment 1.1, Sodium Level 137, Potassium Level 4.1, Chloride Level 106, Carbon Dioxide Level 23, Anion Gap 8, Blood Urea Nitrogen 14, Creatinine 1.17, Estimat Glomerular Filtration Rate 50, BUN/Creatinine Ratio 12, Glucose Level 85, Calcium Level 9.2, Corrected Calcium 9.6, Total Bilirubin 0.5, Aspartate Amino Transf (AST/SGOT) 57, Alanine Aminotransferase (ALT/SGPT) 39, Alkaline Phosphatase 81, Total Protein 6.5, Albumin 3.5 05/17/23 05:10: White Blood Count 7.7, Red Blood Count 3.82, Hemoglobin 11.0, Hematocrit 34, Mean Corpuscular Volume 89, Mean Corpuscular Hemoglobin 29, Mean Corpuscular Hemoglobin Concent 33, Red Cell Distribution Width 13.4, Platelet Count 243, Mean Platelet Volume 9.8, Immature Granulocyte % (Auto) 0, Neutrophils (%) (Auto) 72, Lymphocytes (%) (Auto) 17, Monocytes (%) (Auto) 8, Eosinophils (%) (Auto) 1, Basophils (%) (Auto) 1, Neutrophils # (Auto) 5.6, Lymphocytes # (Auto) 1.3, Monocytes # (Auto) 0.6, Eosinophils # (Auto) 0.1, Basophils # (Auto) 0.1, Immature Granulocyte # (Auto) 0.0, Sodium Level 137, Potassium Level 3.9, Chloride Level 105, Carbon Dioxide Level 21, Anion Gap 11, Blood Urea Nitrogen 16, Creatinine 1.25, Estimat Glomerular Filtration Rate 46, BUN/Creatinine Ratio 13, Glucose Level 92, Calcium Level 9.4, Corrected Calcium 9.6, Total Bilirubin 0.5, Aspartate Amino Transf (AST/SGOT) 80, Alanine Aminotransferase (ALT/SGPT) 53, Alkaline Phosphatase 89, Total Protein 6.8, Albumin 3.7 Discharge Home Medications: Active Scripts Active Ondansetron Odt (Ondansetron) 8 Mg Tab.rapdis 8 Mg SL Q4H PRN Eliquis (Apixaban) 5 Mg Tablet 5 Mg PO BID 2 pills twice daily for 7 days then 1 pill twice daily until further notice Reported Centrum Adults Tablet (Multivitamin/Iron/Folic Acid) 18 Mg Iron-400 Mcg Tablet 1 Each PO HS Benedict 3 1,000 mg Softgel (Benedict-3 Fatty Acids/Fish Oil) 300 Mg-1,000 Mg Capsule 1 Each PO HS Bioflex Tablet (Rutin/Hesp/Bioflav/C/Herb#196) 40 Mg-25 Mg-50 Mg-500 Mg Tablet 1 Each PO BID Pantoprazole Sodium 40 Mg Tablet.dr 40 Mg PO DAILY Losartan Potassium 100 Mg Tablet 100 Mg PO HS Zyrtec (Cetirizine HCl) 10 Mg Tablet 10 Mg PO DAILY Viactiv 650 mg-12.5 Mcg Chew (Calcium Carb/Vitamin D3/Vit K1) 650 Mg Calcium- 12.5 Mcg-40 Mcg Tab.chew 1 Each PO HS Turmeric (Turmeric Root Extract) 500 Mg Tablet 500 Mg PO BID Potassium Chloride 10 Meq Tab.er.prt 10 Meq PO BID Atorvastatin Calcium 10 Mg Tablet 10 Mg PO HS Instructions to patient/family Please see electronic discharge instructions given to patient. Clinical Quality Measures DVT/VTE Risk/Contraindication: Contraindications-Mechi: Other *list below* Other: DVT SHAMAR DAHL DO May 17, 2023 11:57
[2023-05-17 14:07] VITALS: BP 121/74
[2023-05-24] MEDS ORDERED: APIXABAN 5 MG (ELIQUIS) TABLET PO SCH (09:00)
== END 2023-05-17 14:13 | disposition home or self-care (01) | DRG 300 ==
LOC: 4TH 18:31
PROVIDERS: ADMIT Internal Medicine; ATTEND Internal Medicine
PROC: 0DBW3ZX Excision of Peritoneum, Percutaneous Approach, Diagnostic (ICD-10-PCS; principal; 2023-05-16)
DX: I82.401 Acute embolism and thrombosis of unspecified deep veins of right lower extremity (principal); C22.8 Malignant neoplasm of liver, primary, unspecified as to type; R18.8 Other ascites; I10 Essential (primary) hypertension; E66.9 Obesity, unspecified; E78.5 Hyperlipidemia, unspecified; Z85.3 Personal history of malignant neoplasm of breast; Z85.42 Personal history of malignant neoplasm of other parts of uterus; E78.00 Pure hypercholesterolemia, unspecified; Z92.3 Personal history of irradiation; R59.1 Generalized enlarged lymph nodes; Z68.32 Body mass index [BMI] 32.0-32.9, adult
CPT/HCPCS: 36415; 71275; 74177; 77012; 80053; 85025; 85610; 85730; 99156

== ENCOUNTER → 2023-05-14 | Outpatient (CLI) | payer MEDICARE, OTHER ==
[~2023-05-14] MED LIST changes: +APIX5TAB PO; +CETI10TA49 PO; -LIDOCAINE 1% INJ 30 ML (XYLOCAINE) VIAL INJ ONE; +LOSA100T58 PO; +MULT-1067 PO; +OMEG1CAP58 PO; +ONDA8TAB13 SL; +PANT40TA52 PO; +RUTI1TAB PO
--- NOTE | 2023-05-14 16:33 | Diagnostic Imaging Report ---
PROCEDURE: US Abdomen, limited. TECHNIQUE: Multiple realtime grayscale images were obtained over the abdomen in various projections. INDICATION: Abdominal pain and distention. There is a 10 cm centrally necrotic appearing mass in the inferior aspect of the right lobe of liver. There are stones present in the gallbladder. Common duct is not dilated. The portal vein is patent with hepatopetal flow. Visualized portions of the pancreas are unremarkable. Aorta and IVC appear normal. There is hydronephrosis of the right kidney which measures 9.7 cm length. IMPRESSION: Centrally necrotic mass posterior segment right lobe of liver suspicious for neoplasm. Dictated by: Dictated on workstation # [id number]
--- NOTE | 2023-05-14 17:15 | Diagnostic Imaging Report ---
PROCEDURE: US right lower extremity venous. TECHNIQUE: Multiple real-time grayscale images were obtained over the right lower extremity in various projections. Additional spectral analysis and color Doppler duplex images were also obtained. INDICATION: Deep venous thrombosis FINDINGS: There is an extensive right lower extremity deep venous thrombosis extending from the common femoral vein through the femoral vein into the popliteal vein and tibial veins. There are no abnormal fluid collections or masses. IMPRESSION: Extensive right lower extremity deep venous thrombosis. Dictated by: Dictated on workstation # [id number]
--- NOTE | 2023-05-16 15:06 | Pre-Op Note & Conscious Sedat ---
Pre-Operative Progress Note Date of Available H&P: May 16, 2023 Date H&P Reviewed: May 16, 2023 Time H&P Reviewed: 14:00 Pre-Op Diagnosis: abdominal mass Moderate Sedation PreProcedure Time 14:00 ASA Score 2 Airway Lungs Heart ASA score ASA 1: a normal healthy patient ASA 2: a patient with a mild systemic disease (mid diabetes, controlled hypertension, obesity ASA 3: a patient with a severe systemic disease that limits activity (angina, COPD, prior Myocardial infarction) ASA 4: a patient with an incapacitating disease that is a constant threat to life (CHF, renal failure) ASA 5: a moribund patient not expected to survive 24 hrs. (ruptured aneurysm) ASA 6: a declared brain- patient whose organs are being harvested. For emergent operations, add the letter E after the classification Mallampati Classification Grade 2 Sedation Plan Analgesia, Amnesia, Plan communicated to team members, Discussed options with patient/fam, Discussed risks with patient/fam The patient is an appropriate candidate to undergo the planned procedure, sedation, and anesthesia. The patient immediately re-assessed prior to indication. DEEPAK GOLD MD May 16, 2023 15:06
== END ==
LOC: RAD 15:29
PROVIDERS: ATTEND Internal Medicine
DX: I82.461 Acute embolism and thrombosis of right calf muscular vein (principal); K72.90 Hepatic failure, unspecified without coma
CPT/HCPCS: 76705

== ENCOUNTER 2023-05-27 18:28 | Inpatient (IN) | payer MEDICARE, OTHER ==
[~2023-05-27] VITALS: Ht 160 cm; Wt 83.5 kg
[~2023-05-27 18:28] MED LIST changes: +APIX5TAB PO; +CETI10TA49 PO; +LOSA100T58 PO; +MULT-1067 PO; +OMEG1CAP58 PO; +ONDA8TAB13 SL; +PANT40TA52 PO; +RUTI1TAB PO
[2023-05-27 18:42] LABS: BASOPHILS # (AUTO) 0.1 10^3/uL (0.0-0.1); BASOPHILS % (AUTO) 1 % (0-10); EOSINOPHILS # (AUTO) 0.1 10^3/uL (0.0-0.3); EOSINOPHILS % (AUTO) 1 % (0-10); HEMATOCRIT 34 % (35-52); HEMOGLOBIN 11.3 g/dL (11.5-16.0); LYMPHOCYTES # (AUTO) 0.9 10^3/uL (1.0-4.0); LYMPHOCYTES % (AUTO) 12 % (12-44); MEAN CORPUSCULAR HEMOGLOBIN 30 pg (25-34); MEAN CORPUSCULAR HGB CONC 33 g/dL (32-36); MEAN CORPUSCULAR VOLUME 90 fL (80-99); MONOCYTES # (AUTO) 0.5 10^3/uL (0.0-1.0); MONOCYTES % (AUTO) 7 % (0-12); NEUTROPHILS # (AUTO) 6.5 10^3/uL (1.8-7.8); NEUTROPHILS % (AUTO) 80 % (42-75); PLATELET COUNT 249 10^3/uL (130-400); WHITE BLOOD COUNT 8.1 10^3/uL (4.3-11.0)
[2023-05-27] MEDS ORDERED: LIDOCAINE UROJET 2% GEL 10 ML PKG TOP ONE (18:45)
[2023-05-27 18:54] LABS: CALCIUM 9.8 MG/DL (8.5-10.1)
[2023-05-27 18:55] LABS: INR 1.3 (0.8-1.4); PROTHROMBIN TIME PATIENT 15.9 SEC (12.2-14.7); TOTAL PROTEIN 7.4 GM/DL (6.4-8.2)
[2023-05-27 18:57] LABS: BILIRUBIN,TOTAL 0.5 MG/DL (0.1-1.0)
[2023-05-27 18:58] LABS: CREATININE SERUM 1.16 MG/DL (0.60-1.30)
[2023-05-27 19:01] LABS: MAGNESIUM 2.2 MG/DL (1.6-2.4)
--- NOTE | 2023-05-27 19:01 | Diagnostic Imaging Report ---
INDICATION: Stroke alert, left-sided weakness and numbness. TECHNIQUE: Multiple contiguous axial images were obtained through the brain without the use of intravenous contrast. Auto Exposure Controls were utilized during the CT exam to meet ALARA standards for radiation dose reduction. Comparison made to 06/19/2018. There are no extra-axial fluid collections. No intracranial hemorrhage. There are mild patchy low-density changes in deep white matter compatible with chronic ischemic change, more prominent on the left than on the right. There is no overt acute territorial ischemia. The ventricles are normal in size. Calvarial windows are unremarkable. IMPRESSION: Mild low-density changes in deep white matter compatible with chronic ischemic change. No acute hemorrhage or mass effect or acute-appearing abnormality. If symptoms persist, MRI may be of benefit. Dictated by: Dictated on workstation # [id number]
--- NOTE | 2023-05-27 19:02 | Diagnostic Imaging Report ---
INDICATION: Stroke symptoms, left-sided weakness and numbness. Frontal chest obtained at 6:58 p.m. and compared to 09/27/2022. Heart and mediastinal silhouette are normal in appearance. The lungs are clear. IMPRESSION: Negative chest. Dictated by: Dictated on workstation # [id number]
--- NOTE | 2023-05-27 19:04 | ED General ---
General Chief Complaint: Neuro-Stroke Like Symptoms Stated Complaint: STROKE LIKE SYMPTOMS Nursing Triage Note: PT PRESENTS TO ED VIA EMS FROM HOME WITH COMPLAINTS OF L HAND WEAKNESS AROUND 1300 TODAY. PT REPORTS SHE CALLED EMS INITIALLY AND THEY ASSESSED HER AT HER HOME BUT SHE REFUSED TRANSPORT TO ED. PT THEN CALLED EMS BACK DUE TO HER HAND NOT GETTING BETTER AND NUMBNESS DEVELOPING. Allergies and Home Medications Allergies Coded Allergies: letrozole (Verified Allergy, Unknown, RASH, 05/14/23) Uncoded Allergies: TAPE (Allergy, Mild, BLISTERS, 05/27/09) Patient Home Medication List Apixaban (Eliquis) 5 Mg Tablet, 5 MG PO BID Prescribed by: SHAMAR DAHL on 05/17/23 1155 Atorvastatin Calcium (Atorvastatin Calcium) 10 Mg Tablet, 10 MG PO HS, (Reported) Entered as Reported by: KIRSTY GAMINO on 09/27/22 0842 Calcium Carb/Vitamin D3/Vit K1 (Viactiv 650 mg-12.5 Mcg Chew) 650 Mg Calcium- 12.5 Mcg-40 Mcg Tab.chew, 1 EACH PO HS, (Reported) Entered as Reported by: KIRSTY GAMINO on 09/27/22 0842 Cetirizine HCl (Zyrtec) 10 Mg Tablet, 10 MG PO DAILY, (Reported) Entered as Reported by: KORY AGUILAR on 05/14/23 191 Losartan Potassium (Losartan Potassium) 100 Mg Tablet, 100 MG PO HS, (Reported) Entered as Reported by: KORY AGUILAR on 05/14/231920 Multivitamin/Iron/Folic Acid (Centrum Adults Tablet) 18 Mg Iron-400 Mcg Tablet, 1 EACH PO HS, (Reported) Entered as Reported by: SAMIR GUEVARA on 05/15/23926 [place]-3 Fatty Acids/Fish Oil ([place] 3 1,000 mg Softgel) 300 Mg-1,000 Mg Capsule, 1 EACH PO HS, (Reported) Entered as Reported by: SAMIR GUEVARA on 05/15/23926 Ondansetron (Ondansetron Odt) 8 Mg Tab.rapdis, 8 MG SL Q4H PRN for NAUSEA/VOMITING Prescribed by: SHAMAR DAHL on 05/17/23 115 Pantoprazole Sodium (Pantoprazole Sodium) 40 Mg Tablet.dr, 40 MG PO DAILY, (Reported) Entered as Reported by: SAMIR GUEVARA on 05/15/23926 Potassium Chloride (Potassium Chloride) 10 Meq Tab.er.prt, 10 MEQ PO BID, (Reported) Entered as Reported by: KIRSTY GAMINO on 09/27/22841 Rutin/Hesp/Bioflav/C/Herb#196 (Bioflex Tablet) 40 Mg-25 Mg-50 Mg-500 Mg Tablet, 1 EACH PO BID, (Reported) Entered as Reported by: SAMIR GUEVARA on 05/15/23926 Turmeric Root Extract (Turmeric) 500 Mg Tablet, 500 MG PO BID, (Reported) Entered as Reported by: KIRSTY GAMINO on 09/27/22841 Past Rutelob-Ncruan-Lxwjhk Hx Patient Social History Tobacco Use?: No Substance use?: No Alcohol Use?: No Pt feels they are or have been: No Immunizations Up To Date Tetanus Booster (TDap): Less than 5yrs First/Initial COVID19 Vaccinat: 01/01/21 Second COVID19 Vaccination Jerardo: 02/02/2021 Third COVID19 Vaccination Date: 01/01/21 Seasonal Allergies Seasonal Allergies: Yes Past Medical History Surgery/Hospitalization HX: ENDOMETRIAL CA, HX OF DVT, HTN, HIGH CHOL, Surgeries: Yes (breast biopsy X2 ) Breast, Hysterectomy, Lumpectomy, Tonsillectomy Respiratory: No Currently Using CPAP: No Currently Using BIPAP: No Cardiac: No High Cholesterol Neurological: No Reproductive Disorders: Yes (THICKEN ENDOMETRIUM) 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 Sexually Transmitted Disease: No HIV/AIDS: No Genitourinary: No Gastrointestinal: No Musculoskeletal: No Endocrine: No HEENT: No Cancer: Yes Skin, Breast, Uterine Did You Recieve Any Treatments: Yes What Type of Treatment Did You: Radiation, Surgical Intervention Psychosocial: No Integumentary: Yes (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 oz. [id number]; 33.00 BMI Method:Stated Progress/Results/Core Measures Suspected Sepsis SIRS Temperature: Pulse: 101 Respiratory Rate: 20 Laboratory Tests 05/27/23 18:34: White Blood Count 8.1 Blood Pressure 174 /83 Mean: 113 Laboratory Tests 05/27/23 18:34: Creatinine 1.16, Platelet Count 249, Total Bilirubin 0.5 Results/Orders Lab Results Laboratory Tests Test 05/27/23 18:34 05/27/23 18:44 Range/Units White Blood Count 8.1 4.3-11.0 10^3/uL Red Blood Count 3.82 3.80-5.11 10^6/uL Hemoglobin 11.3 L 11.5-16.0 g/dL Hematocrit 34 L 35-52 % Mean Corpuscular Volume 90 80-99 fL Mean Corpuscular Hemoglobin 30 25-34 pg Mean Corpuscular Hemoglobin Concent 33 32-36 g/dL Red Cell Distribution Width 14.0 10.0-14.5 % Platelet Count 249 130-400 10^3/uL Mean Platelet Volume 9.0 9.0-12.2 fL Immature Granulocyte % (Auto) 0 % Neutrophils (%) (Auto) 80 H 42-75 % Lymphocytes (%) (Auto) 12 12-44 % Monocytes (%) (Auto) 7 0-12 % Eosinophils (%) (Auto) 1 0-10 % Basophils (%) (Auto) 1 0-10 % Neutrophils # (Auto) 6.5 1.8-7.8 10^3/uL Lymphocytes # (Auto) 0.9 L 1.0-4.0 10^3/uL Monocytes # (Auto) 0.5 0.0-1.0 10^3/uL Eosinophils # (Auto) 0.1 0.0-0.3 10^3/uL Basophils # (Auto) 0.1 0.0-0.1 10^3/uL Immature Granulocyte # (Auto) 0.0 0.0-0.1 10^3/uL Sodium Level 139 135-145 MMOL/L Potassium Level 4.0 3.6-5.0 MMOL/L Chloride Level 106 98-107 MMOL/L Carbon Dioxide Level 21 21-32 MMOL/L Anion Gap 12 5-14 MMOL/L Blood Urea Nitrogen 12 7-18 MG/DL Creatinine 1.16 0.60-1.30 MG/DL Estimat Glomerular Filtration Rate 50 BUN/Creatinine Ratio 10 Glucose Level 94 70-105 MG/DL Calcium Level 9.8 8.5-10.1 MG/DL Corrected Calcium 9.8 8.5-10.1 MG/DL Magnesium Level 2.2 1.6-2.4 MG/DL Total Bilirubin 0.5 0.1-1.0 MG/DL Aspartate Amino Transf (AST/SGOT) 71 H 5-34 U/L Alanine Aminotransferase (ALT/SGPT) 43 0-55 U/L Alkaline Phosphatase 99 40-136 U/L Total Protein 7.4 6.4-8.2 GM/DL Albumin 4.0 3.2-4.5 GM/DL Glucometer 94 70-110 MG/DL My Orders Orders - LILIANA TAYLOR DO Accucheck Stat ONCE (05/27/23 18:35) Ed Iv/Invasive Line Start (05/27/23 18:35) Ekg Tracing (05/27/23 18:35) Catheter(Urinary) Insert & Ass 03,15 (05/27/23 18:35) O2 (05/27/23 18:35) Monitor-Rhythm Ecg Trace Only (05/27/23 18:35) Cbc With Automated Diff (05/27/23 18:35) Protime With Inr (05/27/23 18:35) Partial Thromboplastin Time (05/27/23 18:35) Comprehensive Metabolic Panel (05/27/23 18:35) Fibrin Degradation Products (05/27/23 18:35) Troponin I Mariangel (05/27/23 18:35) Ua Culture If Indicated (05/27/23 18:35) Chest 1 View, Ap/Pa Only (05/27/23 18:35) Nothing By Mouth (05/27/23 Dinner) Accucheck Stat ONCE (05/27/23 18:35) Ed Iv/Invasive Line Start (05/27/23 18:35) Ed Iv/Invasive Line Start (05/27/23 18:35) Vital Signs Stroke Patient Q15M (05/27/23 18:35) Ct Head Wo-R/O Stroke (05/27/23 18:35) O2 (05/27/23 18:35) Dysphagia Screening Tool [id number] (05/27/23 18:35) Lipid Panel (05/28/23 06:00) Magnesium (05/27/23 18:35) Lidocaine 2% (Urojet) (Xylocaine Urojet) (05/27/23 18:45) Vital Signs/I&O 05/27/23 18:34 Temp 37.0 Pulse 101 Resp 20 B/P (MAP) 174/83 (113) Pulse Ox 97 Capillary Refill : Less Than 3 Seconds Blood Pressure Mean: 113 Point of Care Testing Finger Stick Blood Glucose: 94 Blood Glucose Action Taken: RN NOTIFIED Diagnostic Imaging Comments CT HEAD--PER RADIOLOGIST REPORT AT 1903 There are no extra-axial fluid collections. No intracranial hemorrhage. There are mild patchy low-density changes in deep white matter compatible with chronic ischemic change, more prominent on the left than on the right. There is no overt acute territorial ischemia. The ventricles are normal in size. Calvarial windows are unremarkable. IMPRESSION: Mild low-density changes in deep white matter compatible with chronic ischemic change. No acute hemorrhage or mass effect or acute-appearing abnormality. If symptoms persist, MRI may be of benefit. Reviewed: Reviewed by Me Departure Departure-Patient Inst. Referrals: SHAMAR DAHL DO (PCP/Family) Primary Care Physician LILIANA TAYLOR DO May 27, 2023 19:04
[2023-05-27 19:05] LABS: FIBRIN DEGRADATION PRODUCTS 8.89 UG/ML (0.00-0.49)
[2023-05-27] MEDS ORDERED: HOLD METFORMIN - RECEIVED CONTRAST 20 ML VIAL IV SCH (19:15)
[2023-05-27] MEDS ORDERED: ONDANSETRON 4 MG/2 ML (SDV) Z0FRAN IVP ONE (19:15)
[2023-05-27] MEDS ORDERED: NS 100 ML (IVPB) BAG IV ONE (19:15)
[2023-05-27] MEDS ORDERED: IOHEXOL 350 MG/ML 100 ML (OMNIPAQUE 350) VIAL IV ONE (19:15)
--- NOTE | 2023-05-27 19:42 | Diagnostic Imaging Report ---
INDICATION: Left hand weakness. TECHNIQUE: Contiguous noncontrast images were obtained from the skull base through the vertex. After intravenous contrast administration, helical CT angiography of the neck was performed. Source data was reformatted into 3D MIP projections. Delayed post contrast acquisition was also obtained. Auto Exposure Controls were utilized during the CT exam to meet ALARA standards for radiation dose reduction. There is no prior CTA for comparison. Comparison made to noncontrast CT of earlier the same day. CTA neck findings: Aortic arch and great vessels are patent and without stenosis. There is adenopathy in the mediastinum, this is known from previous chest CT of 05/14/2023. The common carotid arteries, carotid bifurcations, internal carotids and external carotids are patent and without stenosis or dissection. Left-sided thyroid nodule is noted, similar to the prior chest CT. Both vertebrals are patent and appear to be codominant. CTA head findings: The distal vertebral arteries, basilar artery, and posterior cerebral arteries are patent. The distal internal carotid arteries, anterior cerebral arteries, and middle cerebral arteries and their major branches are patent. There is no major vessel stenosis or occlusion or aneurysmal disease. The dural venous sinuses appear patent. IMPRESSION: CTA neck demonstrates patent carotid and vertebral territories with no significant stenosis or occlusion. Adenopathy of the mediastinum is similar to prior chest CT. Left thyroid nodule is also similar to prior chest CT CTA head demonstrate no major vessel stenosis or occlusion or aneurysmal disease. The dural venous sinuses are patent. Dictated by: Dictated on workstation # [id number]
[2023-05-27 19:56] LABS: BILIRUBIN,URINE NEGATIVE (NEGATIVE); CLARITY,URINE CLEAR; COLOR,URINE YELLOW; GLUCOSE, URINE (UA) NEGATIVE (NEGATIVE); KETONES,URINE TRACE (NEGATIVE); LEUKOCYTE ESTERASE ,URINE NEGATIVE (NEGATIVE); NITRITE,URINE NEGATIVE (NEGATIVE); PH,URINE 5.5 (5-9); PROTEIN,URINE NEGATIVE (NEGATIVE)
[2023-05-27 20:09] LABS: BACTERIA,URINE TRACE /HPF; SQUAMOUS EPITHELIAL CELL,UR 0-2 /HPF
[2023-05-27] MEDS ORDERED: ONDANSETRON 4 MG (ZOFRAN) ORAL DISSOLVE TAB PO PRN (21:45)
[2023-05-27] MEDS ORDERED: diphenhydrAMINE 50 MG/ML INJ (BENADRYL) IVP PRN (21:45)
[2023-05-27] MEDS ORDERED: ACETAMINOPHEN 325 MG TABLET PO PRN (21:45)
[2023-05-27] MEDS ORDERED: BISACODYL 10 MG SUPP (DULCOLAX) PR PRN (21:45)
[2023-05-27] MEDS ORDERED: morphine INJ 4 MG/ML 1 ML (VIAL/SYRINGE) IV PRN (21:45)
[2023-05-27] MEDS ORDERED: ALPRAZolam 0.5 MG (XANAX) TAB PO PRN (21:45)
[2023-05-27] MEDS ORDERED: ONDANSETRON 4 MG/2 ML (SDV) Z0FRAN IV PRN (21:45)
[2023-05-27] MEDS ORDERED: polyethylene glycoL POWDER 17 GM (MIRALAX) PACK PO PRN (21:45)
[2023-05-27] MEDS ORDERED: ANTACID SUSP 30 ML UDC (MYLANTA) PO PRN (21:45)
[2023-05-27] MEDS ORDERED: CALCIUM CARBONATE 500 MG (TUMS) TAB.CHEW PO PRN (21:45)
[2023-05-27] MEDS ORDERED: NS IV 500 ML 500 ML IV PRN (21:45)
[2023-05-27] MEDS ORDERED: MILK OF MAGNESIA 400 MG/5 ML 30 ML UDC PO PRN (21:45)
[2023-05-27] MEDS ORDERED: MELATONIN 3 MG TABLET PO PRN (21:45)
[2023-05-27] MEDS ORDERED: diphenhydrAMINE 25 MG TAB (BENADRYL) PO PRN (21:45)
[2023-05-27] MEDS ORDERED: LACTULOSE SYRUP 10GM/15ML (ENULOSE) 30ML UDC PO PRN (21:45)
[2023-05-27] MEDS ORDERED: NS IV 1000 ML 1,000 ML IV SCH (21:45)
[2023-05-27 21:59] VITALS: BP 174/83
[2023-05-27] MEDS ORDERED: RT-ALBUTEROL/IPRATROPIUM 3 ML (DUONEB) VIAL INH PRN (22:15)
--- NOTE | 2023-05-27 22:45 | Tele-ICU Progress Note ---
Progress Note Case reviewed with the bedside nurse. 72 y/o admitted with L arm weakness. CTH negative for any acute changes. MRI in AM. No request for any orders at this time from the RN. CXR , U/A negative for any infection. Focused Exam Height, Weight, BMI Height: 5'4" Weight: 185lbs. oz. 83.748456uj; 33.94 BMI Method:Stated STELLA STEVENS MD May 27, 2023 22:45
[2023-05-28 04:43] LABS: BASOPHILS % (AUTO) 1 % (0-10); EOSINOPHILS # (AUTO) 0.1 10^3/uL (0.0-0.3); EOSINOPHILS % (AUTO) 1 % (0-10); HEMATOCRIT 30 % (35-52); HEMOGLOBIN 9.8 g/dL (11.5-16.0); LYMPHOCYTES % (AUTO) 13 % (12-44); MEAN CORPUSCULAR HEMOGLOBIN 29 pg (25-34); MEAN CORPUSCULAR HGB CONC 33 g/dL (32-36); MEAN CORPUSCULAR VOLUME 89 fL (80-99); MEAN PLATELET VOLUME 9.6 fL (9.0-12.2); MONOCYTES # (AUTO) 0.5 10^3/uL (0.0-1.0); MONOCYTES % (AUTO) 7 % (0-12); NEUTROPHILS # (AUTO) 5.8 10^3/uL (1.8-7.8); NEUTROPHILS % (AUTO) 78 % (42-75); PLATELET COUNT 227 10^3/uL (130-400); WHITE BLOOD COUNT 7.5 10^3/uL (4.3-11.0)
[2023-05-28 05:14] LABS: ALBUMIN 3.5 GM/DL (3.2-4.5); BILIRUBIN,TOTAL 0.6 MG/DL (0.1-1.0); CALCIUM 9.3 MG/DL (8.5-10.1); CREATININE SERUM 1.09 MG/DL (0.60-1.30); PHOSPHORUS 3.8 MG/DL (2.3-4.7); POTASSIUM 4.1 MMOL/L (3.6-5.0); TOTAL PROTEIN 6.3 GM/DL (6.4-8.2)
[2023-05-28] MEDS: inSUlin ASPART (NovoLOG) 1 UNIT/0.01 ML (CHARGE PER UNIT) SC SCH ×2 (05:50→11:00)
[2023-05-28] MEDS ORDERED: POTASSIUM CL 10MEQ/50ML IVPB 50 ML IV SCH (06:00)
[2023-05-28] MEDS ORDERED: MAGNESIUM 1 GM/100 ML IVPB 100 ML IV SCH (06:00)
[2023-05-28] MEDS ORDERED: KCL 20 MEQ TAB (K-DUR) PO SCH (06:00)
[2023-05-28] MEDS: ASPIRIN 325 MG (5 GR) TABLET PO SCH (08:08)
[2023-05-28] MEDS: DOCUSATE SODIUM 100 MG (COLACE) CAP PO SCH ×2 (08:23→21:00)
[2023-05-28] MEDS: SENNOSIDES 8.6 MG (SENOKOT) TAB PO SCH ×2 (08:24→21:00)
--- NOTE | 2023-05-28 08:47 | Occupational Therapy Eval ---
OT Evaluation-General/PLF Medical Diagnosis Admission Date May 27, 2023 at 21:26 Medical Diagnosis: stroke like symptoms Onset Date: May 27, 2023 Therapy Diagnosis Therapy Diagnosis: weakenss Height/Weight Height (Feet): 5 Height (Inches): 4 Weight (Pounds): 185 Precautions Precautions/Isolations: Fall Prevention, Standard Precautions Weight Bear Status Weight Bearing Restriction: Weight Bearing/Tolerated Referral Referral Reason: Self Care, Evaluation/Treatment Medical History Additional Medical History PT PRESENTS TO ED VIA EMS FROM HOME WITH COMPLAINTS OF L HAND WEAKNESS AROUND 1300 TODAY. PT REPORTS SHE CALLED EMS INITIALLY AND THEY ASSESSED HER AT HER HOME BUT SHE REFUSED TRANSPORT TO ED. PT THEN CALLED EMS BACK DUE TO HER HAND NOT GETTING BETTER AND NUMBNESS DEVELOPING. Reviewed History: Yes Social History Home: Single Level Current Living Status: Spouse Entry Into Home: Stairs With Railing Steps Into Home: 3 ADL-Prior Level of Function SCALE: Activities may be completed with or without assistive devices. 5-Dugqknczst-mddwwrx completes the activity by him/herself with no assistance from a helper. 5-Set-up or Clean-up Assistance-helper sets up or cleans up; patient completes activity. [place] assists only prior to or following the activity. 4-Supervision or Touching Assistance-helper provides verbal cues and/or touching/steadying and/or contact guard assistance as patient completes activity. Assistance may be provided throughout the activity or intermittently. 3-Partial/Moderate Assistance-helper does LESS THAN HALF the effort. [place] lifts, holds or supports trunk or limbs, but provides less than half the effort. 2-Substantial/Maximal Assistance-helper does MORE THAN HALF the effort. [place] lifts or holds trunk or limbs and provides more than half the effort. 0-Oenlmrhgs-eluuvo does ALL the effort. Patient does none of the effort to complete the activity. Or, the assistance of 2 or more helpers is required for the patient to complete the activity. If activity was not attempted, code reason: 7-Patient Refused. 9-Not Applicable-not attempted and the patient did not perform the activity before the current illness, exacerbation or injury. 10-Not Attempted due to Environmental Limitations-(lack of equipment, weather restraints, etc.). 88-Not Attempted due to Medical Conditions or Safety Concerns. Self Care: Independent Functional Cognition: Independent DME/Equipment: Shower, Tall Toilet, Tub/Shower DME/Equipment Comments uses cane since has DVT [address] Drive Self: Yes OT Current Status Subjective Resting in bed w/ breakfast delivered, agreeable to OT Pain Numeric Pain Scale: 0-No Pain Mental Status/Objective Patient Orientation: Person, Place, Situation Attachments: Mosquera Catheter, IV, Telemetry Current Glasses/Contacts: Yes Hand Dominance: Right Upper Extremity ROM LUE Poor control w/ ROM, no hand material attendant. RUE WFLS ADL-Treatment Eating (QC): 5 (set up provided, cough w/ pills, not new cough) Oral Hygiene (QC): 5 Shower/Bathe Self (QC): 7 Upper Body Dressing (QC): 2 Lower Body Dressing (QC): 2 On/Off Footwear (QC): 2 Toileting Hygiene (QC): 2 Other Treatments Education for position of LUE to reduce edema and further complication Education OT Patient Education: Correct positioning, Exercise program, Modified ADL techniques, Progress toward Goal/Update tx plan, Purpose of tx/functional activities, Reviewed precautions, Rehab process, Transfer techniques, Use of adapted equipment Teaching Recipient: Patient Teaching Methods: Demonstration, Discussion Response to Teaching: Verbalize Understanding, Reinforcement Needed OT Short Term Goals Short Term Goals Eatin Oral hygiene: 6 OT Retirement Goals 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 2=Patient will verbalize/demonstrate understanding of assistive devices/modifications for ADL. 3=Patient will improve strength/tolerance for activity to enable patient to perform ADL's. OT Education/Plan Problem List/Assessment Assessment: Decreased Activ Tolerance, Decreased Safety Aware, Decreased UE Strength, Impaired Bed Mobility, Impaired Coordination, Impaired Funct Balance, Impaired I ADL's, Impaired Self-Care Skills Discharge Recommendations Plan/Recommendations: Continue POC Therapy Discharge Recommendati: Post Acute OT Treatment Plan/Plan of Care Treatment,Training & Education: Yes Patient would benefit from OT for education, treatment and training to promote independence in ADL's, mobility, safety and/or upper extremity function for ADL's. Plan of Care: ADL Retraining, Concurrent Therapy, Functional Mobility, Group Exercise/Act as Ind, UE Funct Exercise/Act, UE Neuromus Re-Ed/Coord Treatment Duration: Jun 02, 2023 Frequency: 3 times per week (3-=5 times per week) Estimated Hrs Per Day: .25 hour per day Agreement: Yes Rehab Potential: Good Time Start Time: 08:05 Stop Time: 08:20 DATE: May 28, 2023 Total Time Billed (hr/min): 15 Billed Treatment Time EVM 15 min JAKE POON OT May 28, 2023 08:47
--- NOTE | 2023-05-28 08:49 | Physical Therapy Evaluation ---
PT Evaluation-General Medical Diagnosis Admission Date May 27, 2023 at 21:26 Medical Diagnosis: stroke like symptoms Onset Date: May 27, 2023 Therapy Diagnosis Therapy Diagnosis: debility/weakness Height/Weight Height (Feet): 5 Height (Inches): 4 Weight (Pounds): 185 Precautions Precautions/Isolations: Fall Prevention, Standard Precautions Weight Bear Status Right Lower Extremity: Right Weight Bearing/Tolerated Left Lower Extremity: Left Full Weight Bearing Referral Physician: Amina Reason for Referral: Evaluation/Treatment Medical History Pertinent Medical History: HTN Additional Medical History breast cancer/DVT right LE Current History EMS secondary to left hand weakness/refused transport/had EMS return due to continued left UE weakness Social History Home: Single Level Current Living Status: Spouse Entry Into Home: Stairs With Railing PT Steps Into Home: 3 Prior Prior Level of Function SCALE: Activities may be completed with or without assistive devices. 8-Msmewddluu-burmugo completes the activity by him/herself with no assistance from a helper. 5-Set-up or Clean-up Assistance-helper sets up or cleans up; patient completes activity. [place] assists only prior to or following the activity. 4-Supervision or Touching Assistance-helper provides verbal cues and/or touching/steadying and/or contact guard assistance as patient completes activity. Assistance may be provided throughout the activity or intermittently. 3-Partial/Moderate Assistance-helper does LESS THAN HALF the effort. [place] lifts, holds or supports trunk or limbs, but provides less than half the effort. 2-Substantial/Maximal Assistance-helper does MORE THAN HALF the effort. [place] lifts or holds trunk or limbs and provides more than half the effort. 3-Bvaijjjtk-pfnncb does ALL the effort. Patient does none of the effort to complete the activity. Or, the assistance of 2 or more helpers is required for the patient to complete the activity. If activity was not attempted, code reason: 7-Patient Refused. 9-Not Applicable-not attempted and the patient did not perform the activity before the current illness, exacerbation or injury. 10-Not Attempted due to Environmental Limitations-(lack of equipment, weather restraints, etc.). 88-Not Attempted due to Medical Conditions or Safety Concerns. Bed Mobility: 6 Transfers (B,C,W/C): 6 Gait: 6 Stairs: 6 Indoor Mobility (Ambulation): Independent Stairs: Independent Prior Devices Use: Other-see list below Prior Device Use: Cane PT Evaluation-Current Subjective Patient agrees to PT. Denies pain. Pain Numeric Pain Scale: 0-No Pain Location: No Pain Reported Objective Patient Orientation: Normal For Age Attachments: Mosquera Catheter, IV ROM/Strength ROM Lower Extremities bilateral LE WFL Strength Lower Extremities 3+/5 grossly bilateral LE all planes Integumentary/Posture Bladder Incontinence: Mosquera Cath Posture WFL Neuromuscular (Tone, Coordination, Reflexes) diminished coordination Sensory Vision: Wears Glasses Hearing: Functional Transfers Lying to Sitting/Side of Bed(Q: 3 Sit to Stand (QC): 3 Chair/Yiq-py-Wbrjk Xfer(QC): 3 Gait Mode of Locomotion: Walk Anticipated Mode of Locomotion: Walk Walk 10 feet (QC): 3 Walk 50 ft with 2 Turns(QC): 88 Walk 150 ft (QC): 88 Distance: 10' Gait Assistive Device: FWW Comments/Gait Description slow, steady, functional gait sequence Balance Sitting Static: Normal Sitting Dynamic: Normal Standing Static: Fair Standing Dynamic: Fair Assessment/Needs Patient will benefit from skilled PT to address functional strength and mobility to improve current LOF to safely return to home at maximum LOF. Rehab Potential: Fair PT Group Home Goals Group Home Goals PT Boring Machine Set Up Operator Goals Time Frame: Jun 09, 2023 Roll Left & Right (QC): 6 Sit to Lying (QC): 6 Lying-Sitting on Side/Bed(QC): 6 Sit to Stand (QC): 6 Chair/Keb-sq-Numdi Xfer(QC): 6 Toilet Transfer (QC): 6 Walk 10 feet (QC): 6 Walk 50ft with 2 Turns (QC): 6 Walk 150 ft (QC): 6 PT Plan Problem List Problem List: Activity Tolerance, Functional Strength, Safety, Balance, Gait, Transfer, Bed Mobility Treatment/Plan Treatment Plan: Continue Plan of Care Treatment Plan: Bed Mobility, Education, Functional Activity Marlen, Functional Strength, Gait, Safety, Therapeutic Exercise, Transfers Treatment Duration: Jun 09, 2023 Frequency: 6 times per week Estimated Hrs Per Day: .25 hour per day Time Time In: 805 Time Out: 820 DATE: May 28, 2023 Total Billed Treatment Time: 15 Total Billed Treatment 1 visit EVMod 15 min MAGUE VERDUZCO PT May 28, 2023 08:49
[2023-05-28] MEDS ORDERED: APIXABAN 5 MG (ELIQUIS) TABLET PO SCH (09:00)
--- NOTE | 2023-05-28 10:48 | History & Physical ---
PEDRO SEBASTIAN 05/28/23 1048: History of Present Illness History of Present Illness Reason for visit/HPI Bridget Goldberg is a 72yo F with past medical hx of metastatic endometrial cancer, HTN, DVT, and GERD who presented to the ED on 05/27 with complaints of L upper extremity weakness that began mid day 05/27. She initially decided not to come to the ED because she thought her symptoms were improving at home. Her weakness persisted and she began to develop numbness. In the ED head CT and CTA were negative for hemorrhage or acute ischemia. MRI pending. On exam today she is still complaining of weakness mainly of the L hand and wrist. She has slightly diminished sensation to the palm and dorsum of the L hand as well. She has never has symptoms like this in the past and denies any hx of CVA or TIA. She has normal strength and sensation of the shoulder and elbow bilaterally. No cranial nerve or lower extremity defecits noted. She denies any pain the area. Denies shortness of breath, chest pain, N/V/D and fever/ chills. Date of Admission May 27, 2023 at 21:26 Date Seen by a Provider: May 28, 2023 Time Seen by a Provider: 08:00 I consulted on this patient on 05/28/23 10:38 Attending Physician Senait Dahl DO Admitting Physician Admitting Physician: Senait Dahl DO Attending Physician: Senait Dahl DO Consult Allergies and Home Medications Allergies Coded Allergies: letrozole (Verified Allergy, Unknown, RASH, 05/14/23) Uncoded Allergies: TAPE (Allergy, Mild, BLISTERS, 05/27/09) Patient Home Medication List Home Medication List Reviewed: Yes Apixaban (Eliquis) 5 Mg Tablet, 5 MG PO BID, (Reported) Entered as Reported by: SAMIR GUEVARA on 05/28/23 1127 Last Action: Reviewed Atorvastatin Calcium (Atorvastatin Calcium) 10 Mg Tablet, 10 MG PO HS, (Reported) Entered as Reported by: KIRSTY GAMINO on 09/27/22 0842 Last Action: Reviewed Cetirizine HCl (Zyrtec) 10 Mg Tablet, 10 MG PO DAILY, (Reported) Entered as Reported by: KORY AGUILAR on 05/14/23 1919 Last Action: Reviewed Losartan Potassium (Losartan Potassium) 100 Mg Tablet, 100 MG PO HS, (Reported) Entered as Reported by: KORY AGUILAR on 05/14/231920 Last Action: Reviewed Ondansetron (Ondansetron Odt) 8 Mg Tab.rapdis, 8 MG SL Q4H PRN for NAUSEA/VOMITING Prescribed by: SENAIT DAHL on 05/17/231154 Last Action: Reviewed Pantoprazole Sodium (Pantoprazole Sodium) 40 Mg Tablet.dr, 40 MG PO DAILY, (Reported) Entered as Reported by: SAMIR GUEVARA on 05/15/23926 Last Action: Reviewed Potassium Chloride (Potassium Chloride) 10 Meq Tab.er.prt, 10 MEQ PO BID, (Reported) Entered as Reported by: KIRSTY GAMINO on 09/27/22841 Last Action: Reviewed Discontinued Medications Apixaban (Eliquis) 5 Mg Tablet, 5 MG PO BID Discontinued Reason: Duplicate Order Prescribed by: SENAIT DAHL on 05/17/231154 Last Action: Discontinued Calcium Carb/Vitamin D3/Vit K1 (Viactiv 650 mg-12.5 Mcg Chew) 650 Mg Calcium- 12.5 Mcg-40 Mcg Tab.chew, 1 EACH PO HS, (Reported) Discontinued Reason: No Longer Taking Entered as Reported by: KIRSTY GAMINO on 09/27/22841 Last Action: Discontinued Multivitamin/Iron/Folic Acid (Centrum Adults Tablet) 18 Mg Iron-400 Mcg Tablet, 1 EACH PO HS, (Reported) Discontinued Reason: No Longer Taking Entered as Reported by: SAMIR GUEVARA on 05/15/23926 Last Action: Discontinued [place]-3 Fatty Acids/Fish Oil ([place] 3 1,000 mg Softgel) 300 Mg-1,000 Mg Capsule, 1 EACH PO HS, (Reported) Discontinued Reason: No Longer Taking Entered as Reported by: SAMIR GUEVARA on 05/15/23926 Last Action: Discontinued Rutin/Hesp/Bioflav/C/Herb#196 (Bioflex Tablet) 40 Mg-25 Mg-50 Mg-500 Mg Tablet, 1 EACH PO BID, (Reported) Discontinued Reason: No Longer Taking Entered as Reported by: SAMIR GUEVARA on 05/15/23926 Last Action: Discontinued Turmeric Root Extract (Turmeric) 500 Mg Tablet, 500 MG PO BID, (Reported) Discontinued Reason: No Longer Taking Entered as Reported by: KIRSTY GAMINO on 09/27/22 0842 Last Action: Discontinued Past Hazgojs-Xrobtk-Avuqie Hx Patient Social History Tobacco Use?: No Smoking Status: Never a Smoker Smokeless Tobacco Frequency: Never a User Use of E-Cig and/or Vaping dev: No Substance use?: No Alcohol Use?: No Pt feels they are or have been: No Immunizations Up To Date Date of Influenza Vaccine: Aug 30, 2020 First/Initial COVID19 Vaccinat: 01/01/21 Second COVID19 Vaccination Jerardo: 02/02/2021 Tetanus Booster (TDap): Less Than 5 Years Seasonal Allergies Seasonal Allergies: Yes Current Status Advance Directives: No Communicates: Verbally Primary Language: [place] Preferred Spoken Language: [place] Is interpretation needed?: No Sensory deficits: Vision impairment Implanted or Applied Medical D: None Past Medical History Surgeries: Breast, Hysterectomy, Lumpectomy, Tonsillectomy Currently Using CPAP: No Currently Using BIPAP: No High Cholesterol, Hypertension 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 Sexually Transmitted Disease: No HIV/AIDS: No Skin, Uterine Did You Recieve Any Treatments: Yes What Type of Treatment Did You: Radiation, Surgical Intervention Blood Disorders: No Adverse Reaction/Blood Tranf: No Family Medical History No Pertinent Family Hx Review of Systems Constitutional: No chills, No diaphoresis, No fever; weakness EENTM: No hearing loss, No vision loss Respiratory: No cough, No short of breath Cardiovascular: No chest pain, No palpitations Gastrointestinal: No abdominal pain, No nausea, No vomiting Musculoskeletal: No muscle pain, No muscle stiffness; muscle weakness Psychiatric/Neurological: Denies Headache; Weakness (L hand) Physical Exam Vital Signs Vital Signs - First Documented 05/27/23 05/27/23 05/27/23 18:34 21:29 21:59 Temp 37.0 Pulse 101 Resp 20 B/P (MAP) 174/83 (113) Pulse Ox 97 O2 Delivery Room Air FiO2 21 Capillary Refill : Less Than 3 Seconds Height, Weight, BMI Height: 5'4" Weight: 185lbs. oz. 83.990465ls; 34.14 BMI Method:Stated General Appearance: No Apparent Distress, WD/WN HEENT: PERRL/EOMI, Moist Mucous Membranes Neck: Supple Respiratory: Lungs Clear, Normal Breath Sounds, No Accessory Muscle Use, No Respiratory Distress Cardiovascular: Regular Rate, Rhythm, Normal Peripheral Pulses Gastrointestinal: Non Tender, Soft Rectal: Deferred Neurologic/Psychiatric: Alert, Oriented x3, Normal Mood/Affect; No Aphasia, No Facial Droop; Motor Weakness (decreased strength on extension/flexion of L wrist. Weakness of opposition of L thumb. Weakness of hand squeeze.) Skin: Normal Color, Warm/Dry Assessment/Plan Assessment and Plan Acute neurological deficit of the L upper extremity CVA CT and CTA have not shown evidence of hemorrhage or acute ischemia MRI showed multifocal areas of acute/subacute ischemia involving the bilateral cerebral and cerebellar hemispheres Due to multiple involved areas, embolic disease suspected Weakness has not improved Continue atorvastatin and aspirin Eliquis switched to 90mg of lovenox BID for anticoagulation Echo and carotid u/s pending. Attempting to identify source of embolism Move to 4th floor PT/OT Metastatic endometrial cancer Underwent hysterectomy recent scans revealed recurrence with metastasis patient has plans to follow with Dr Dayne Robison of DVT on anticoagulation Elevated D dimer Elevated troponin Recently treated for LE DVT and placed on anticoagulation Diet- regular DVT ppx- anticoagulated with lovenox Code- DNR Admission Diagnosis Admission Status: Inpatient Order (span 2 midnights) Clinical Quality Measures DVT/VTE Risk/Contraindication: Contraindications-Mechi: Other *list below* Other: dvt SENAIT DAHL DO 05/28/23 2005: Allergies and Home Medications Allergies Coded Allergies: letrozole (Verified Allergy, Unknown, RASH, 05/14/23) Uncoded Allergies: TAPE (Allergy, Mild, BLISTERS, 05/27/09) Patient Home Medication List Apixaban (Eliquis) 5 Mg Tablet, 5 MG PO BID, (Reported) Entered as Reported by: SAMIR GUEVARA on 05/28/23 1127 Last Action: Reviewed Atorvastatin Calcium (Atorvastatin Calcium) 10 Mg Tablet, 10 MG PO HS, (Reported) Entered as Reported by: KIRSTY GAMINO on 09/27/22 0842 Last Action: Reviewed Cetirizine HCl (Zyrtec) 10 Mg Tablet, 10 MG PO DAILY, (Reported) Entered as Reported by: KORY AGUILAR on 05/14/231918 Last Action: Reviewed Losartan Potassium (Losartan Potassium) 100 Mg Tablet, 100 MG PO HS, (Reported) Entered as Reported by: KORY AGUILAR on 05/14/231920 Last Action: Reviewed Ondansetron (Ondansetron Odt) 8 Mg Tab.rapdis, 8 MG SL Q4H PRN for NAUSEA/VOMITING Prescribed by: SENAIT DAHL on 05/17/231154 Last Action: Reviewed Pantoprazole Sodium (Pantoprazole Sodium) 40 Mg Tablet.dr, 40 MG PO DAILY, (Reported) Entered as Reported by: SAMIR GUEVARA on 05/15/23926 Last Action: Reviewed Potassium Chloride (Potassium Chloride) 10 Meq Tab.er.prt, 10 MEQ PO BID, (Reported) Entered as Reported by: KIRSTY GAMINO on 09/27/22841 Last Action: Reviewed Discontinued Medications Apixaban (Eliquis) 5 Mg Tablet, 5 MG PO BID Discontinued Reason: Duplicate Order Prescribed by: SENAIT DAHL on 05/17/231154 Last Action: Discontinued Calcium Carb/Vitamin D3/Vit K1 (Viactiv 650 mg-12.5 Mcg Chew) 650 Mg Calcium- 12.5 Mcg-40 Mcg Tab.chew, 1 EACH PO HS, (Reported) Discontinued Reason: No Longer Taking Entered as Reported by: KIRSTY GAMINO on 09/27/22841 Last Action: Discontinued Multivitamin/Iron/Folic Acid (Centrum Adults Tablet) 18 Mg Iron-400 Mcg Tablet, 1 EACH PO HS, (Reported) Discontinued Reason: No Longer Taking Entered as Reported by: SAMIR GUEVARA on 05/15/23926 Last Action: Discontinued [place]-3 Fatty Acids/Fish Oil ([place] 3 1,000 mg Softgel) 300 Mg-1,000 Mg Capsule, 1 EACH PO HS, (Reported) Discontinued Reason: No Longer Taking Entered as Reported by: SAMIR GUEVARA on 05/15/23926 Last Action: Discontinued Rutin/Hesp/Bioflav/C/Herb#196 (Bioflex Tablet) 40 Mg-25 Mg-50 Mg-500 Mg Tablet, 1 EACH PO BID, (Reported) Discontinued Reason: No Longer Taking Entered as Reported by: SAMIR GUEVARA on 05/15/23926 Last Action: Discontinued Turmeric Root Extract (Turmeric) 500 Mg Tablet, 500 MG PO BID, (Reported) Discontinued Reason: No Longer Taking Entered as Reported by: KIRSTY GAMINO on 09/27/22841 Last Action: Discontinued Assessment/Plan Admission Diagnosis Admission Status: Inpatient Order (span 2 midnights) Reason for Inpatient Admission: cva Supervisory-Addendum Brief Verification & Attestation Participated in pt care: history, MDM, physical Personally performed: exam, history, MDM, supervision of care Care discussed with: Medical Student Procedures: n/a Results interpretation: Verified all documentation Verification and Attestation of Medical Student E/M Service A medical student performed and documented this service in my presence. I reviewed and verified all information documented by the medical student and made modifications to such information, when appropriate. I personally performed the physical exam and medical decision making. Senait Dahl, May 28, 2023,20:05 PEDRO SEBASTIAN May 28, 2023 10:48 SENAIT DAHL DO May 28, 2023 20:05
[2023-05-28] MEDS ORDERED: APIX5TAB PO (11:27)
--- NOTE | 2023-05-28 11:52 | Diagnostic Imaging Report ---
PROCEDURE: MR imaging of the brain without contrast. TECHNIQUE: Multiplanar, multisequence MR imaging of the brain was performed without contrast. INDICATION: Left arm numbness. Weakness. Concern for stroke. COMPARISON: CTA head and neck on 05/27/2023. FINDINGS: Focal areas of acute/subacute ischemia are seen in the bilateral cerebral and cerebellar hemispheres. The largest area of ischemia is seen in the right frontal lobe involving the prefrontal gyrus with involvement of the hand knob. No associated midline shift or hemorrhage is seen with these areas of ischemia. Additional chronic microvascular disease is seen in the periventricular and subcortical white matter. The ventricles, cortical sulci, and basilar cisterns are symmetric and unremarkable. The sellar and suprasellar regions have a normal appearance. The paranasal sinuses and mastoid air cells demonstrate normal signal characteristics. The globes and orbits are symmetric and unremarkable. The scalp and calvarium have a normal appearance. IMPRESSION: 1. Multifocal areas of acute/subacute ischemia involving the bilateral cerebral and cerebellar hemispheres, the largest involvement in the precentral gyrus of the right frontal lobe. This likely corresponds to the patient's symptoms of left arm numbness and weakness. No associated hemorrhage or mass effect. Given the involvement in multiple vascular territories, embolic phenomenon is suspected. Recommend continued close follow-up. 2. Additional chronic microvascular disease in the periventricular and subcortical white matter. Dictated by: Dictated on workstation # [id number]
[2023-05-28] MEDS: ENOXAPARIN 100 MG/1 ML (LOVENOX) SYR SC SCH (13:20)
[2023-05-28 14:07] VITALS: BP 152/79
[2023-05-28 14:40] VITALS: BP 132/64
--- NOTE | 2023-05-28 15:09 | Diagnostic Imaging Report ---
PROCEDURE: US carotid duplex, bilateral. TECHNIQUE: Multiple real-time grayscale images were obtained over the carotid arteries in various projections, bilaterally. Additional spectral analysis and color Doppler duplex images were also obtained. INDICATION: Stroke-like symptoms. FINDINGS: There is minimal plaquing identified in both carotid bifurcations. Velocities appear normal bilaterally. No significant velocity elevation or stenosis is seen. Both vertebral arteries show antegrade flow. IMPRESSION: No evidence of a hemodynamically significant stenosis. Parameters based on the consensus panel Stahl-Scale and Doppler ultrasound criteria published September 2003, Radiology, Volume 229. DOPPLER (peak systolic velocity M/S Right Left CCA 0.95 1.16 ICA Proximal 0.60 1.38 ICA Mid 0.67 1.44 ICA Distal 0.58 1.07 RATIO 0.71 1.24 ECA 1.41 1.30 VERT 0.71 0.71 Dictated by: Dictated on workstation # [id number]
[2023-05-28 16:36] VITALS: BP 144/65
[2023-05-28 20:07] VITALS: BP 135/64
[2023-05-28 23:45] VITALS: BP 150/70
[2023-05-29] MEDS: ENOXAPARIN 100 MG/1 ML (LOVENOX) SYR SC SCH ×2 (00:26→12:50)
[2023-05-29 03:44] VITALS: BP 128/77
[2023-05-29 05:56] LABS: BASOPHILS # (AUTO) 0.1 10^3/uL (0.0-0.1); BASOPHILS % (AUTO) 1 % (0-10); EOSINOPHILS # (AUTO) 0.1 10^3/uL (0.0-0.3); EOSINOPHILS % (AUTO) 1 % (0-10); HEMATOCRIT 31 % (35-52); HEMOGLOBIN 10.3 g/dL (11.5-16.0); LYMPHOCYTES % (AUTO) 13 % (12-44); MEAN CORPUSCULAR HEMOGLOBIN 29 pg (25-34); MEAN CORPUSCULAR HGB CONC 33 g/dL (32-36); MEAN CORPUSCULAR VOLUME 89 fL (80-99); MEAN PLATELET VOLUME 9.3 fL (9.0-12.2); MONOCYTES # (AUTO) 0.6 10^3/uL (0.0-1.0); MONOCYTES % (AUTO) 8 % (0-12); NEUTROPHILS % (AUTO) 77 % (42-75); PLATELET COUNT 247 10^3/uL (130-400); WHITE BLOOD COUNT 7.8 10^3/uL (4.3-11.0)
[2023-05-29 06:10] LABS: ALBUMIN 3.6 GM/DL (3.2-4.5); POTASSIUM 3.7 MMOL/L (3.6-5.0)
[2023-05-29 06:11] LABS: CALCIUM 9.4 MG/DL (8.5-10.1)
[2023-05-29 06:12] LABS: TOTAL PROTEIN 6.6 GM/DL (6.4-8.2)
[2023-05-29 06:14] LABS: BILIRUBIN,TOTAL 0.5 MG/DL (0.1-1.0)
[2023-05-29 06:16] LABS: CREATININE SERUM 0.99 MG/DL (0.60-1.30)
[2023-05-29 06:18] LABS: MAGNESIUM 2.3 MG/DL (1.6-2.4)
[2023-05-29 07:53] VITALS: BP 155/85
--- NOTE | 2023-05-29 08:32 | Occupational Ther Daily Note ---
OT Current Status-Daily Note Subjective Up in recliner attempting breakfast, agreeable to OT Mental Status/Objective Patient Orientation: Person, Place, Time, Situation ADL-Treatment Breakfast on tray, patient able to stab fruit w/ fork and insert straws, biscuit eaten with fingers. OT provided correct positing of LUE while sitting in recliner using rolled wash clothe Therapy Code Descriptions/Definitions Functional [place] Measure: 0=Not Assessed/NA 4=Minimal Assistance 1=Total Assistance 5=Supervision or Setup 2=Maximal Assistance 6=Modified [place] 3=Moderate Assistance 7=Complete IndependenceSCALE: Activities may be completed with or without assistive devices. 3-Zgkwfqdbqd-olcxttq completes the activity by him/herself with no assistance from a helper. 5-Set-up or Clean-up Assistance-helper sets up or cleans up; patient completes activity. [place] assists only prior to or following the activity. 4-Supervision or Touching Assistance-helper provides verbal cues and/or touching/steadying and/or contact guard assistance as patient completes activity. Assistance may be provided throughout the activity or intermittently. 3-Partial/Moderate Assistance-helper does LESS THAN HALF the effort. [place] lifts, holds or supports trunk or limbs, but provides less than half the effort. 2-Substantial/Maximal Assistance-helper does MORE THAN HALF the effort. [place] lifts or holds trunk or limbs and provides more than half the effort. 3-Emmtcyqdr-seccey does ALL the effort. Patient does none of the effort to complete the activity. Or, the assistance of 2 or more helpers is required for the patient to complete the activity. If activity was not attempted, code reason: 7-Patient Refused. 9-Not Applicable-not attempted and the patient did not perform the activity before the current illness, exacerbation or injury. 10-Not Attempted due to Environmental Limitations-(lack of equipment, weather restraints, etc.). 88-Not Attempted due to Medical Conditions or Safety Concerns. Eating (QC): 5 Oral Hygiene (QC): 5 (Object manipulation techniques provided as intervention) Other Treatment PROM to finger, wrist and supination/pronation to LUE. Education for positional ROM and comfort, limb alertness d/t decreased sensation and lack of proprioception Education OT Patient Education: Correct positioning, Exercise program, Modified ADL techniques, Progress toward Goal/Update tx plan, Purpose of tx/functional activities, Reviewed precautions, Rehab process Teaching Recipient: Patient Teaching Methods: Demonstration, Discussion Response to Teaching: Verbalize Understanding, Return Demonstration, Reinforcement Needed OT Short Term Goals Short Term Goals Eatin Oral hygiene: 6 OT Shelter Goals Shelter Goals Toileting Hygiene (QC): 5 Shower/Bathe Self (QC): 5 Upper Body Dressing (QC): 5 Lower Body Dressing (QC): 5 On/Off Footwear (QC): 5 1=Demonstrate adherence to instructed precautions during ADL tasks. 2=Patient will verbalize/demonstrate understanding of assistive devices/mod ifications for ADL. 3=Patient will improve strength/tolerance for activity to enable patient to perform ADL's. OT Education/Plan Problem List/Assessment Assessment: Decreased Activ Tolerance, Decreased UE Strength, Impaired Coordination, Impaired Self-Care Skills, Restricted Funct UE ROM Discharge Recommendations Plan/Recommendations: Continue POC Treatment Plan/Plan of Care Treatment,Training & Education: Yes Patient would benefit from OT for education, treatment and training to promote independence in ADL's, mobility, safety and/or upper extremity function for ADL's. Plan of Care: ADL Retraining, Concurrent Therapy, Functional Mobility, Group Exercise/Act as Ind, UE Funct Exercise/Act, UE Neuromus Re-Ed/Coord Treatment Duration: Jun 02, 2023 Frequency: 3 times per week (3-=5 times per week) Estimated Hrs Per Day: .25 hour per day Agreement: Yes Rehab Potential: Good All needs met Time Start Time: 08:35 Stop Time: 23:00 DATE: May 29, 2023 Total Time Billed (hr/min): 23 Billed Treatment Time ADL 1, EX 1 23 min JAKE POON OT May 29, 2023 08:32
[2023-05-29] MEDS: DOCUSATE SODIUM 100 MG (COLACE) CAP PO SCH (08:45)
[2023-05-29] MEDS: SENNOSIDES 8.6 MG (SENOKOT) TAB PO SCH (08:45)
[2023-05-29] MEDS: ASPIRIN 325 MG (5 GR) TABLET PO SCH (08:45)
--- NOTE | 2023-05-29 10:29 | Consultation-Cardiology ---
HPI-Cardiology Cardiology Consultation: Date of Consultation 05/29/23 Time Seen by a Provider: 10:50 Date of Admission 05-27-23 Attending Physician Senait Dahl DO Admitting Physician Admitting Physician: Senait Dahl DO Attending Physician: Senait Dahl DO Consulting Physician Chelo Aldridge MD Primary Campus Security Officer: Dr. Hilliard HPI: Chief Complaint: CVA with left sided weakness Ms. Joseph is a 72 yr old female admitted to [facility] from the ED with CVA with left sided weakness. Her spouse is at the bedside. 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 EMS was initially called and transport was advised at that time, however she declined. Weakness of her left hand/arm persisted with developing numbness prompting her to come to the ED at that time. She denies any visual disturbances. No c/o palpitations. No CP or SOB. She reports she has had difficulty keeping her medications down recently and has had episodes of emesis after taking medications. She reports she has been compliant with her medications. She is adamant that she has not thrown up her Eliquis. She denies any dizziness, syncope or near syncope. She does have RLE swelling which has been present since April 2023 (newly dx DVT at that time). Review of Systems-Cardiology Review of Systems Constitutional: No chills, No fever, No lightheadedness, No malaise Eyes: No vision change Ears/Nose/Throat: No epistaxis, No recent hearing loss Respiratory: As described under HPI Cardiovascular: As described under HPI Gastrointestinal: As described under HPI Genitourinary: No dysuria, No hematuria Musculoskeletal: no symptoms reported Skin: No rash on exposed areas, No ulcerations on exposed areas Psychiatric/Neurological: As described under HPI; No anxiety, No depression Hematologic: No bleeding abnormalities JVH-Bkfakk-Wzvayn Hx Patient Social History Smoking Status: Never a Smoker 2nd Hand Smoke Exposure: Yes Alcohol Use?: No Pt feels they are or have been: No Immunizations Up To Date Tetanus Booster (TDap): Less than 5yrs Date of Influenza Vaccine: Aug 30, 2020 Past Medical History PMH As described under Assessment. Family Medical History Family Medical History: Reported history of father having HTN and CVA. Mother had HTN. Allergies and Home Medications Allergies Coded Allergies: letrozole (Verified Allergy, Unknown, RASH, 05/14/23) Uncoded Allergies: TAPE (Allergy, Mild, BLISTERS, 05/27/09) Patient Home Medication List Apixaban (Eliquis) 5 Mg Tablet, 5 MG PO BID, (Reported) Entered as Reported by: SAMIR GUEVARA on 05/28/231126 Last Action: Reviewed Atorvastatin Calcium (Atorvastatin Calcium) 10 Mg Tablet, 10 MG PO HS, (Reported) Entered as Reported by: KIRSTY GAMINO on 09/27/22841 Last Action: Reviewed Cetirizine HCl (Zyrtec) 10 Mg Tablet, 10 MG PO DAILY, (Reported) Entered as Reported by: KORY AGUILAR on 05/14/231918 Last Action: Reviewed Losartan Potassium (Losartan Potassium) 100 Mg Tablet, 100 MG PO HS, (Reported) Entered as Reported by: KORY AGUILAR on 05/14/231920 Last Action: Reviewed Ondansetron (Ondansetron Odt) 8 Mg Tab.rapdis, 8 MG SL Q4H PRN for NAUSEA/VOMITING Prescribed by: SENAIT DAHL on 05/17/231154 Last Action: Reviewed Pantoprazole Sodium (Pantoprazole Sodium) 40 Mg Tablet.dr, 40 MG PO DAILY, (Reported) Entered as Reported by: SAMIR GUEVARA on 05/15/23926 Last Action: Reviewed Potassium Chloride (Potassium Chloride) 10 Meq Tab.er.prt, 10 MEQ PO BID, (Reported) Entered as Reported by: KIRSTY GAMINO on 09/27/22841 Last Action: Reviewed Discontinued Medications Apixaban (Eliquis) 5 Mg Tablet, 5 MG PO BID Discontinued Reason: Duplicate Order Prescribed by: SENAIT DAHL on 05/17/231154 Last Action: Discontinued Calcium Carb/Vitamin D3/Vit K1 (Viactiv 650 mg-12.5 Mcg Chew) 650 Mg Calcium- 12.5 Mcg-40 Mcg Tab.chew, 1 EACH PO HS, (Reported) Discontinued Reason: No Longer Taking Entered as Reported by: KIRSTY GAMINO on 09/27/22841 Last Action: Discontinued Multivitamin/Iron/Folic Acid (Centrum Adults Tablet) 18 Mg Iron-400 Mcg Tablet, 1 EACH PO HS, (Reported) Discontinued Reason: No Longer Taking Entered as Reported by: SAMIR GUEVARA on 05/15/23926 Last Action: Discontinued [place]-3 Fatty Acids/Fish Oil ([place] 3 1,000 mg Softgel) 300 Mg-1,000 Mg Capsule, 1 EACH PO HS, (Reported) Discontinued Reason: No Longer Taking Entered as Reported by: SAMIR GUEVARA on 05/15/23926 Last Action: Discontinued Rutin/Hesp/Bioflav/C/Herb#196 (Bioflex Tablet) 40 Mg-25 Mg-50 Mg-500 Mg Tablet, 1 EACH PO BID, (Reported) Discontinued Reason: No Longer Taking Entered as Reported by: SAMIR GUEVARA on 05/15/23926 Last Action: Discontinued Turmeric Root Extract (Turmeric) 500 Mg Tablet, 500 MG PO BID, (Reported) Discontinued Reason: No Longer Taking Entered as Reported by: KIRSTY GAMINO on 09/27/22841 Last Action: Discontinued Physical Exam-Cardiology Physical Exam Vital Signs/I&O 05/28/23 05/29/23 05/29/23 05/29/23 23:45 03:44 07:53 08:00 Temp 36.8 36.0 36.7 Pulse 92 89 90 Resp 18 18 18 B/P (MAP) 150/70 (96) 128/77 (94) 155/85 (108) Pulse Ox 97 97 96 95 O2 Delivery Room Air Room Air Room Air Room Air 05/29/23 00:00 Intake Total 1040 ml Output Total 525 ml Balance 515 ml Capillary Refill : Less Than 3 Seconds Constitutional: AAO x 3, well-developed, well-nourished HEENT: PERRL, hearing is well preserved, oral hygience is good Neck: No carotid bruit; carotid pulses are 2 + bilaterally Respiratory: No accessory muscle use, No respiratory distress; chest expansion is symmetric, chest is bilaterally symmetric, lungs clear to auscultation Cardiovascular: regular rate-rhythm; No JVD; S1 and S2 Gastrointestinal: No tender; soft, distended; No guarding; audible bowel sounds Extremities: other (RLE non-pitting edema) Neurologic/Psychiatric: other (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) Skin: No rash on exposed areas, No ulcerations on exposed areas Data Review Labs Laboratory Tests 05/28/23 10:28: Glucometer 90 05/29/23 05:30: White Blood Count 7.8, Red Blood Count 3.52L, Hemoglobin 10.3L, Hematocrit 31L, Mean Corpuscular Volume 89, Mean Corpuscular Hemoglobin 29, Mean Corpuscular Hemoglobin Concent 33, Red Cell Distribution Width 14.2, Platelet Count 247, Mean Platelet Volume 9.3, Immature Granulocyte % (Auto) 0, Neutrophils (%) (Auto) 77H, Lymphocytes (%) (Auto) 13, Monocytes (%) (Auto) 8, Eosinophils (%) (Auto) 1, Basophils (%) (Auto) 1, Neutrophils # (Auto) 6.0, Lymphocytes # (Auto) 1.0, Monocytes # (Auto) 0.6, Eosinophils # (Auto) 0.1, Basophils # (Auto) 0.1, Immature Granulocyte # (Auto) 0.0, Sodium Level 139, Potassium Level 3.7, Chloride Level 106, Carbon Dioxide Level 23, Anion Gap 10, Blood Urea Nitrogen 12, Creatinine 0.99, Estimat Glomerular Filtration Rate 61, BUN/Creatinine Ratio 12, Glucose Level 78, Calcium Level 9.4, Corrected Calcium 9.7, Magnesium Level 2.3, Total Bilirubin 0.5, Aspartate Amino Transf (AST/SGOT) 64H, Alanine Aminotransferase (ALT/SGPT) 33, Alkaline Phosphatase 96, Total Protein 6.6, Albumin 3.6 Microbiology 05/27/23 MRSA Screen - Final, Complete MRSA not isolated Radiology NAME: [facility] REC#: [id number] PT STATUS: ADM IN : 1950 PHYSICIAN: SENAIT DAHL DO ADMIT DATE: 05/27/23 Signed Date of Exam:05/28/23 US CAROTID IAN COMPLETE [id number] PROCEDURE: US carotid duplex, bilateral. TECHNIQUE: Multiple real-time grayscale images were obtained over the carotid arteries in various projections, bilaterally. Additional spectral analysis and color Doppler duplex images were also obtained. INDICATION: Stroke-like symptoms. FINDINGS: There is minimal plaquing identified in both carotid bifurcations. Velocities appear normal bilaterally. No significant velocity elevation or stenosis is seen. Both vertebral arteries show antegrade flow. IMPRESSION: No evidence of a hemodynamically significant stenosis. Parameters based on the consensus panel Stahl-Scale and Doppler ultrasound criteria published September 2003, Radiology, Volume 229. DOPPLER (peak systolic velocity M/S Right Left CCA 0.95 1.16 ICA Proximal 0.60 1.38 ICA Mid 0.67 1.44 ICA Distal 0.58 1.07 RATIO 0.71 1.24 ECA 1.41 1.30 VERT 0.71 0.71 Dictated by: Dictated on workstation # [id number] Dict: 05/28/23 1502 Trans: 05/28/23 1554 [id number] [id number] Interpreted by: DEEPAK GOLD MD Electronically signed by: DEEPAK GOLD MD 05/28/23 1554 NAME: [facility]LDO [facility] REC#: [id number] PT STATUS: REG ER : 1950 PHYSICIAN: LILIANA TAYLOR DO ADMIT DATE: 05/27/23/ER Signed Date of Exam:05/27/23 CT ANGIO HEAD/NECK INDICATION: Left hand weakness. TECHNIQUE: Contiguous noncontrast images were obtained from the skull base through the vertex. After intravenous contrast administration, helical CT angiography of the neck was performed. Source data was reformatted into 3D MIP projections. Delayed post contrast acquisition was also obtained. Auto Exposure Controls were utilized during the CT exam to meet ALARA standards for radiation dose reduction. There is no prior CTA for comparison. Comparison made to noncontrast CT of earlier the same day. CTA neck findings: Aortic arch and great vessels are patent and without stenosis. There is adenopathy in the mediastinum, this is known from previous chest CT of 05/14/2023. The common carotid arteries, carotid bifurcations, internal carotids and external carotids are patent and without stenosis or dissection. Left-sided thyroid nodule is noted, similar to the prior chest CT. Both vertebrals are patent and appear to be codominant. CTA head findings: The distal vertebral arteries, basilar artery, and posterior cerebral arteries are patent. The distal internal carotid arteries, anterior cerebral arteries, and middle cerebral arteries and their major branches are patent. There is no major vessel stenosis or occlusion or aneurysmal disease. The dural venous sinuses appear patent. IMPRESSION: CTA neck demonstrates patent carotid and vertebral territories with no significant stenosis or occlusion. Adenopathy of the mediastinum is similar to prior chest CT. Left thyroid nodule is also similar to prior chest CT CTA head demonstrate no major vessel stenosis or occlusion or aneurysmal disease. The dural venous sinuses are patent. Dictated by: Dictated on workstation # [id number] Dict: 05/27/231934 Trans: 05/27/232049 CVB [id number] Interpreted by: MIGUEL ÁNGEL OLEARY MD Electronically signed by: MIGUEL ÁNGEL OLEARY MD 05/27/232049 NAME: [facility]LD[facility] REC#: [id number] PT STATUS: REG ER : 1950 PHYSICIAN: LILIANA TAYLOR DO ADMIT DATE: 05/27/23/ER Signed Date of Exam:05/27/23 CT HEAD WO-R/O STROKE INDICATION: Stroke alert, left-sided weakness and numbness. TECHNIQUE: Multiple contiguous axial images were obtained through the brain without the use of intravenous contrast. Auto Exposure Controls were utilized during the CT exam to meet ALARA standards for radiation dose reduction. Comparison made to 06/19/2018. There are no extra-axial fluid collections. No intracranial hemorrhage. There are mild patchy low-density changes in deep white matter compatible with chronic ischemic change, more prominent on the left than on the right. There is no overt acute territorial ischemia. The ventricles are normal in size. Calvarial windows are unremarkable. IMPRESSION: Mild low-density changes in deep white matter compatible with chronic ischemic change. No acute hemorrhage or mass effect or acute-appearing abnormality. If symptoms persist, MRI may be of benefit. Dictated by: Dictated on workstation # [id number] Dict: 05/27/23 185 Trans: 05/27/231903 CVB [id number] Interpreted by: MIGUEL ÁNGEL OLEARY MD Electronically signed by: MIGUEL ÁNGEL OLEARY MD 05/27/231903 ECG Impression ECG Initial ECG Rhythm: S.Tach A/P-Cardiology Assessment/Admission Diagnosis CVA with left arm numbness/weakness - MRI 05-29-23: Multifocal areas of acute/subacute ischemia involving the bilateral cerebral and cerebellar hemispheres, the largest involvement in the precentral gyrus of the right frontal lobe. This likely corresponds to the patient's symptoms of left arm numbness and weakness. No associated hemorrhage or mass effect. Given the involvement in multiple vascular territories, embolic phenomenon is suspected - Carotid u/s of 05-28-23 shows no signif stenosis Liver mass: - U/S of the abd 05-14-23: Centrally necrotic mass posterior segment right lobe of liver suspicious for neoplasm. - Per CTA of the chest/abdomen on 05-14-23: A 1 cm mass in the medial aspect of the right lower lobe concerning for neoplasm. Further evaluation with PET scan should be considered. Additionally, there is a 4 mm nodule in the right upper lobe, likely granuloma. Moderate amount of abdominal ascites. Large mass in the liver concerning for neoplasm. There are additional hepatic cysts. H/O extensive RLE DVT - dx May 14, 2023 - has been on Eliquis Coronary artery disease - underwent LHC on 09/27/[address] 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 Dominant right coronary artery with mild disease nonobstructive disease. Mildly elevated left ventricular end-diastolic pressure. Normal aortic root. 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 Left main appears to arise from the right coronary cusp, sharing a common origin with the right coronary artery. The left main coronary artery passes between the aorta and pulmonary artery. There is some narrowing of the left main coronary artery as it passes between the pulmonary artery and aorta. - Patient was seen by Dr. Clemente at [facility]. Recommendation was conservative management and monitoring especially that the patient is 72 years old and she has been asymptomatic. Recommend to avoid strenuous exercise. 2D echo done in August [address] Hilliard with normal LV size, EF 50 to 55%, mild aortic regurgitation, PA pressure 35 to 40 mmHg. - Echocardiogram of 05-28-23 showed LVEF 60-65%. Grade 1 diastolic dysfunction. Trivial pericardial effusion circumferential to heart. PASP 35-40 mmHg Peripheral arterial disease - KYREE was done in [address] Vásquez showing slightly abnormal. No significant obstructive disease was noted, has been treated for Raynaud's phenomena History of chronic venous insufficiency Echocardiogram done in August 2021 showing normal LV size, EF 50-55%, mild AR PA pressure 35-40 mmHg Hypertension Hyperlipidemia - statin tx History of endometrial cancer, had a hysterectomy with Dr. Qiu, History of breast cancer in 2009, received radiation to the chest, currently following with Dr. Qiu Mild bilateral carotid stenosis, had a carotid ultrasound done at Dr. Diego's office Thyroid nodule noted incidentally during carotid ultrasound, patient reported that work-up was done and she had a biopsy and it was normal. Discussion and Recomendations Complex issues Recent extensive RLE DVT dx May 14, 2023 for which she has been on OAC with Eliquis. She now presents with CVA with left sided weakness/numbness showing involvement in multiple vascular territories, embolic suspected. This is likely d/t hypercoaguability d/t cancer mets. Advise oncology/hematology consult. - CVA management per Dr. Dahl She has recently been dx with peritoneal mass, liver mass suspected mets - management per Dr. Dahl CAD - continue ASA and statin Further recs will be based on her hospital course We would like to thank Dr. Dahl for this consult Clinical Quality Measures DVT/VTE Risk/Contraindication: Contraindications-Mechi: Other *list below* Other: dvt SHAHBAZ LYLE May 29, 2023 10:29
--- NOTE | 2023-05-29 10:40 | Physical Therapy Daily Note ---
PT Daily Note-Current Subjective Patient agrees to PT. Pain Section J - Health Conditions 1. Rarely or not at all 2. Occasionally 3. Frequently 4. Almost constantly 8. Unable to answer Pain Effect on Sleep: 1 Pain Interference with Therapy: 1 Pain Interference w/Day-to-Day: 1 Mental Status Patient Orientation: Normal For Age Transfers SCALE: Activities may be completed with or without assistive devices. 1-Lsbvtowhgs-hrqcekf completes the activity by him/herself with no assistance from a helper. 5-Set-up or Clean-up Assistance-helper sets up or cleans up; patient completes activity. [place] assists only prior to or following the activity. 4-Supervision or Touching Assistance-helper provides verbal cues and/or touching/steadying and/or contact guard assistance as patient completes activity. Assistance may be provided throughout the activity or intermittently. 3-Partial/Moderate Assistance-helper does LESS THAN HALF the effort. [place] lifts, holds or supports trunk or limbs, but provides less than half the effort. 2-Substantial/Maximal Assistance-helper does MORE THAN HALF the effort. [place] lifts or holds trunk or limbs and provides more than half the effort. 0-Qdffkodbl-odhtze does ALL the effort. Patient does none of the effort to complete the activity. Or, the assistance of 2 or more helpers is required for the patient to complete the activity. If activity was not attempted, code reason: 7-Patient Refused. 9-Not Applicable-not attempted and the patient did not perform the activity before the current illness, exacerbation or injury. 10-Not Attempted due to Environmental Limitations-(lack of equipment, weather restraints, etc.). 88-Not Attempted due to Medical Conditions or Safety Concerns. Lying to Sitting/Side of Bed(Q: 3 Sit to Stand (QC): 3 Chair/Wag-cx-Pwzaz Xfer(QC): 3 Weight Bearing Right Lower Extremity: Right Weight Bearing/Tolerated Left Lower Extremity: Left Full Weight Bearing Gait Training Distance: 40' Walk 10 feet (QC): 3 Gait Assistive Device: Walker Christiano slow, trunk flexed posture, step to gait sequence Assessment Patient required VC's for posture and left UE. Patient demonstrated flexed trunk posture and was slightly neglectful with left UE. Patient up in recliner with needs met. PT Nursing Home Goals Nursing Home Goals PT Billing Representative Goals Time Frame: Jun 09, 2023 Roll Left & Right (QC): 6 Sit to Lying (QC): 6 Lying-Sitting on Side/Bed(QC): 6 Sit to Stand (QC): 6 Chair/Xcp-lt-Jkqhg Xfer(QC): 6 Toilet Transfer (QC): 6 Walk 10 feet (QC): 6 Walk 50ft with 2 Turns (QC): 6 Walk 150 ft (QC): 6 PT Plan Treatment/Plan Treatment Plan: Continue Plan of Care Treatment Plan: Bed Mobility, Education, Functional Activity Mareln, Functional Strength, Gait, Safety, Therapeutic Exercise, Transfers Treatment Duration: Jun 09, 2023 Frequency: 6 times per week Estimated Hrs Per Day: .25 hour per day Time Time In: 958 Time Out: 1008 DATE: May 29, 2023 Total Billed Treatment Time: 10 Total Billed Treatment 1 visit GT 10 min MAGUE VERDUZCO PT May 29, 2023 10:40
--- NOTE | 2023-05-29 11:43 | Progress Note ---
PEDRO SEBASTIAN 05/29/23 1143: Progress Note Bridget Goldberg is a 72yo F with past medical hx of metastatic endometrial cancer, HTN, and R LE DVT who presented to the ED on 05/27 after experiencing weakness and tingling of her L hand. HPI from ED "PT PRESENTS TO ED VIA EMS FROM HOME WITH COMPLAINTS OF L HAND WEAKNESS AROUND 1300 TODAY. PT REPORTS SHE CALLED EMS INITIALLY AND THEY ASSESSED HER AT HER HOME BUT SHE REFUSED TRANSPORT TO ED. PT THEN CALLED EMS BACK DUE TO HER HAND NOT GETTING BETTER AND NUMBNESS DEVELOPING." In the ED she was found to have continued weakness of the L hand. No other neuro logical deficits were noted on exam. Head CT showed chronic ischemic changes. CTA of the head and neck did not reveal any stenosis or aneurysm. She has a recent hx of right LE DVT and has been on eliquis since. She was admitted for further management and workup of her acute neurological deficit. HPI on admission "Bridget Goldberg is a 72yo F with past medical hx of metastatic endometrial cancer, HTN, DVT, and GERD who presented to the ED on 05/27 with complaints of L upper extremity weakness that began mid day 05/27. She initially decided not to come to the ED because she thought her symptoms were improving at home. Her weakness persisted and she began to develop numbness. In the ED head CT and CTA were negative for hemorrhage or acute ischemia. MRI pending. On exam today she is still complaining of weakness mainly of the L hand and wrist. She has slightly diminished sensation to the palm and dorsum of the L hand as well. She has never has symptoms like this in the past and denies any hx of CVA or TIA. She has normal strength and sensation of the shoulder and elbow bilaterally. No cranial nerve or lower extremity deficits noted. She denies any pain the area. Denies shortness of breath, chest pain, N/V/D and fever/ chills." She underwent MRI of the brain which showed multiple small infarcts consistent with embolic disease. TTE and carotid u/s were negative for finding a source of this embolism. She is noted to have recent recurrence of her endometrial cancer with metastasis making her hypercoagulable. Cardiology and Heme/onc were consulted. Switched from eliquis to lovenox due to her failure of the prior medication. Atorvastatin and aspirin were resumed. PT/OT consulted to work on regaining function of her L hand. On 05/29 discussed with her and her the possibility of inpatient rehab to work on regaining function of L hand as much as possible with a consult from Dr Oscar planned for 05/30. Her and her were agreeable to this plan and will move to inpatient rehab on 05/29. SENAIT DAHL DO 05/29/23 1935: Supervisory-Addendum Brief Verification & Attestation Participated in pt care: history, MDM, physical Personally performed: exam, history, MDM, supervision of care Care discussed with: Medical Student Procedures: n/a Results interpretation: Verified all documentation Verification and Attestation of Medical Student E/M Service A medical student performed and documented this service in my presence. I reviewed and verified all information documented by the medical student and made modifications to such information, when appropriate. I personally performed the physical exam and medical decision making. Senait Dahl, May 29, 2023,19:35 PEDRO SEBASTIAN May 29, 2023 11:43 SENAIT DAHL DO May 29, 2023 19:35
[2023-05-29 11:50] VITALS: BP 137/86
[2023-05-29] MEDS ORDERED: ATOR80TA76 PO (11:58)
[2023-05-29] MEDS ORDERED: ENOX100D4 SC (11:58)
[2023-05-29] MEDS ORDERED: ASPI-1238 PO (11:58)
--- NOTE | 2023-05-29 11:59 | Discharge Summary ---
Diagnosis/Chief Complaint Date of Admission May 27, 2023 at 21:26 Date of Discharge Discharge Date: May 29, 2023 Discharge Diagnosis Acute neurological deficit of the L upper extremity-MRI revealed showering of emboli-failed OAC placed on Lovenox and consulted Cardiology and reviewed ECHO CVA CT and CTA have not shown evidence of hemorrhage or acute ischemia MRI showed multifocal areas of acute/subacute ischemia involving the bilateral cerebral and cerebellar hemispheres Due to multiple involved areas, embolic disease suspected Weakness has not improved Continue atorvastatin and aspirin Eliquis switched to 90mg of lovenox BID for anticoagulation Echo and carotid u/s pending. Attempting to identify source of embolism Move to ARU PT/OT Metastatic endometrial cancer Underwent hysterectomy 03/2021 Dr Qiu recent scans revealed recurrence with metastasis confirmed on peritoneal mass IR CT guided biopsy patient has plans to follow with Dr Oscar-she will see her ARU 05/30/23 Hx of DVT on anticoagulation of Eliquis and DC placed on Lovenox since failed with emboli causing CVA Elevated D dimer Elevated troponin Recently treated for LE DVT and placed on anticoagulation Diet- regular DVT ppx- anticoagulated with lovenox Code- DNR Discharge Summary Discharge Physical Examination Allergies: Coded Allergies: letrozole (Verified Allergy, Unknown, RASH, 05/14/23) Uncoded Allergies: TAPE (Allergy, Mild, BLISTERS, 05/27/09) Vitals & I&Os Vital Signs Date Time Temp Pulse Resp B/P (MAP) Pulse Ox O2 Delivery O2 Flow Rate FiO2 05/29/23 13:17 36.3 107 18 137/86 96 Room Air 05/27/23 21:59 21 Hospital Course Was the Problem List Reviewed?: Yes Bridget Goldberg is a 72yo F with past medical hx of metastatic endometrial cancer, HTN, and R LE DVT who presented to the ED on 05/27 after experiencing weakness and tingling of her L hand. HPI from ED "PT PRESENTS TO ED VIA EMS FROM HOME WITH COMPLAINTS OF L HAND WEAKNESS AROUND 1300 TODAY. PT REPORTS SHE CALLED EMS INITIALLY AND THEY ASSESSED HER AT HER HOME BUT SHE REFUSED TRANSPORT TO ED. PT THEN CALLED EMS BACK DUE TO HER HAND NOT GETTING BETTER AND NUMBNESS DEVELOPING." In the ED she was found to have continued weakness of the L hand. No other neurological deficits were noted on exam. Head CT showed chronic ischemic changes. CTA of the head and neck did not reveal any stenosis or aneurysm. She has a recent hx of right LE DVT and has been on eliquis since. She was admitted for further management and workup of her acute neurological deficit. HPI on admission "Bridget Goldberg is a 72yo F with past medical hx of metastatic endometrial cancer, HTN, DVT, and GERD who presented to the ED on 05/27 with complaints of L upper extremity weakness that began mid day 05/27. She initially decided not to come to the ED because she thought her symptoms were improving at home. Her weakness persisted and she began to develop numbness. In the ED head CT and CTA were negative for hemorrhage or acute ischemia. MRI pending. On exam today she is still complaining of weakness mainly of the L hand and wrist. She has slightly diminished sensation to the palm and dorsum of the L hand as well. She has never has symptoms like this in the past and denies any hx of CVA or TIA. She has normal strength and sensation of the shoulder and elbow bilaterally. No cranial nerve or lower extremity deficits noted. She denies any pain the area. Denies shortness of breath, chest pain, N/V/D and fever/ chills." She underwent MRI of the brain which showed multiple small infarcts consistent with embolic disease. TTE and carotid u/s were negative for finding a source of this embolism. She is noted to have recent recurrence of her endometrial cancer with metastasis making her hypercoagulable. Cardiology and Heme/onc were consulted. Switched from eliquis to lovenox due to her failure of the prior medication. Atorvastatin and aspirin were resumed. PT/OT consulted to work on regaining function of her L hand. On 05/29 discussed with her and her the possibility of inpatient rehab to work on regaining function of L hand as much as possible with a consult from Dr Oscar planned for 05/30. Her and her were agreeable to this plan and will move to inpatient rehab on 05/29. Labs (last 24 hrs) Laboratory Tests 05/27/23 18:34: White Blood Count 8.1, Red Blood Count 3.82, Hemoglobin 11.3L, Hematocrit 34L, Mean Corpuscular Volume 90, Mean Corpuscular Hemoglobin 30, Mean Corpuscular Hemoglobin Concent 33, Red Cell Distribution Width 14.0, Platelet Count 249, Mean Platelet Volume 9.0, Immature Granulocyte % (Auto) 0, Neutrophils (%) (Auto) 80H, Lymphocytes (%) (Auto) 12, Monocytes (%) (Auto) 7, Eosinophils (%) (Auto) 1, Basophils (%) (Auto) 1, Neutrophils # (Auto) 6.5, Lymphocytes # (Auto) 0.9L, Monocytes # (Auto) 0.5, Eosinophils # (Auto) 0.1, Basophils # (Auto) 0.1, Immature Granulocyte # (Auto) 0.0, Prothrombin Time 15.9H, INR Comment 1.3, Activated Partial Thromboplast Time 31, D-Dimer 8.89H, Sodium Level 139, Potassium Level 4.0, Chloride Level 106, Carbon Dioxide Level 21, Anion Gap 12, Blood Urea Nitrogen 12, Creatinine 1.16, Estimat Glomerular Filtration Rate 50, BUN/Creatinine Ratio 10, Glucose Level 94, Calcium Level 9.8, Corrected Calcium 9.8, Magnesium Level 2.2, Total Bilirubin 0.5, Aspartate Amino Transf (AST/SGOT) 71H, Alanine Aminotransferase (ALT/SGPT) 43, Alkaline Phosphatase 99, Troponin I 0.072H, Total Protein 7.4, Albumin 4.0 05/27/23 18:44: Glucometer 94 05/27/23 19:43: Urine Color YELLOW, Urine Clarity CLEAR, Urine pH 5.5, Urine Specific [place]gett 1.015L, Urine Protein NEGATIVE, Urine Glucose (UA) NEGATIVE, Urine Ketones TRACE H, Urine Nitrite NEGATIVE, Urine Bilirubin NEGATIVE, Urine Urobilinogen 0.2, Urine Leukocyte Esterase NEGATIVE, Urine RBC (Auto) 2+H, Urine RBC 5-10H, Urine WBC NONE, Urine Squamous Epithelial Cells 0-2, Urine Crystals NONE, Urine Bacteria TRACE, Urine Casts NONE, Urine Mucus SMALLH, Urine Culture Indicated NO 05/28/23 04:06: White Blood Count 7.5, Red Blood Count 3.37L, Hemoglobin 9.8L, Hematocrit 30L, Mean Corpuscular Volume 89, Mean Corpuscular Hemoglobin 29, Mean Corpuscular Hemoglobin Concent 33, Red Cell Distribution Width 13.9, Platelet Count 227, Mean Platelet Volume 9.6, Immature Granulocyte % (Auto) 0, Neutrophils (%) (Auto) 78H, Lymphocytes (%) (Auto) 13, Monocytes (%) (Auto) 7, Eosinophils (%) (Auto) 1, Basophils (%) (Auto) 1, Neutrophils # (Auto) 5.8, Lymphocytes # (Auto) 1.0, Monocytes # (Auto) 0.5, Eosinophils # (Auto) 0.1, Basophils # (Auto) 0.0, Immature Granulocyte # (Auto) 0.0, Sodium Level 138, Potassium Level 4.1, Chloride Level 106, Carbon Dioxide Level 21, Anion Gap 11, Blood Urea Nitrogen 11, Creatinine 1.09, Estimat Glomerular Filtration Rate 54, BUN/Creatinine Ratio 10, Glucose Level 76, Calcium Level 9.3, Corrected Calcium 9.7, Magnesium Level 2.0, Total Bilirubin 0.6, Aspartate Amino Transf (AST/SGOT) 62H, Alanine Aminotransferase (ALT/SGPT) 36, Alkaline Phosphatase 87, Total Protein 6.3L, Albumin 3.5, Phosphorus Level 3.8, Triglycerides Level 57, Cholesterol Level 122, LDL Cholesterol Direct 64, VLDL Cholesterol 11, HDL Cholesterol 41 05/28/23 10:28: Glucometer 90 05/29/23 05:30: White Blood Count 7.8, Red Blood Count 3.52L, Hemoglobin 10.3L, Hematocrit 31L, Mean Corpuscular Volume 89, Mean Corpuscular Hemoglobin 29, Mean Corpuscular Hemoglobin Concent 33, Red Cell Distribution Width 14.2, Platelet Count 247, Mean Platelet Volume 9.3, Immature Granulocyte % (Auto) 0, Neutrophils (%) (Auto) 77H, Lymphocytes (%) (Auto) 13, Monocytes (%) (Auto) 8, Eosinophils (%) (Auto) 1, Basophils (%) (Auto) 1, Neutrophils # (Auto) 6.0, Lymphocytes # (Auto) 1.0, Monocytes # (Auto) 0.6, Eosinophils # (Auto) 0.1, Basophils # (Auto) 0.1, Immature Granulocyte # (Auto) 0.0, Sodium Level 139, Potassium Level 3.7, Chloride Level 106, Carbon Dioxide Level 23, Anion Gap 10, Blood Urea Nitrogen 12, Creatinine 0.99, Estimat Glomerular Filtration Rate 61, BUN/Creatinine Ratio 12, Glucose Level 78, Calcium Level 9.4, Corrected Calcium 9.7, Magnesium Level 2.3, Total Bilirubin 0.5, Aspartate Amino Transf (AST/SGOT) 64H, Alanine Aminotransferase (ALT/SGPT) 33, Alkaline Phosphatase 96, Total Protein 6.6, Albumin 3.6 Microbiology 05/27/23 MRSA Screen - Final, Complete MRSA not isolated Pending Labs Microbiology Date/Time Source Procedure Growth Status 05/27/23 21:05 Nasal MRSA Screen - Final MRSA not isolated Complete Laboratory Tests 05/27/23 18:34: White Blood Count 8.1, Red Blood Count 3.82, Hemoglobin 11.3, Hematocrit 34, Mean Corpuscular Volume 90, Mean Corpuscular Hemoglobin 30, Mean Corpuscular Hemoglobin Concent 33, Red Cell Distribution Width 14.0, Platelet Count 249, Mean Platelet Volume 9.0, Immature Granulocyte % (Auto) 0, Neutrophils (%) (Auto) 80, Lymphocytes (%) (Auto) 12, Monocytes (%) (Auto) 7, Eosinophils (%) (Auto) 1, Basophils (%) (Auto) 1, Neutrophils # (Auto) 6.5, Lymphocytes # (Auto) 0.9, Monocytes # (Auto) 0.5, Eosinophils # (Auto) 0.1, Basophils # (Auto) 0.1, Immature Granulocyte # (Auto) 0.0, Prothrombin Time 15.9, INR Comment 1.3, Activated Partial Thromboplast Time 31, D-Dimer 8.89, Sodium Level 139, Potassium Level 4.0, Chloride Level 106, Carbon Dioxide Level 21, Anion Gap 12, Blood Urea Nitrogen 12, Creatinine 1.16, Estimat Glomerular Filtration Rate 50, BUN/Creatinine Ratio 10, Glucose Level 94, Calcium Level 9.8, Corrected Calcium 9.8, Magnesium Level 2.2, Total Bilirubin 0.5, Aspartate Amino Transf (AST/SGOT) 71, Alanine Aminotransferase (ALT/SGPT) 43, Alkaline Phosphatase 99, Troponin I 0.072, Total Protein 7.4, Albumin 4.0 05/27/23 18:44: Glucometer 94 05/27/23 19:43: Urine Color YELLOW, Urine Clarity CLEAR, Urine pH 5.5, Urine Specific [place]gett 1.015, Urine Protein NEGATIVE, Urine Glucose (UA) NEGATIVE, Urine Ketones TRACE, Urine Nitrite NEGATIVE, Urine Bilirubin NEGATIVE, Urine Urobilinogen 0.2, Urine Leukocyte Esterase NEGATIVE, Urine RBC (Auto) 2+, Urine RBC 5-10, Urine WBC NONE, Urine Squamous Epithelial Cells 0-2, Urine Crystals NONE, Urine Bacteria TRACE, Urine Casts NONE, Urine Mucus SMALL, Urine Culture Indicated NO 05/28/23 04:06: White Blood Count 7.5, Red Blood Count 3.37, Hemoglobin 9.8, Hematocrit 30, Mean Corpuscular Volume 89, Mean Corpuscular Hemoglobin 29, Mean Corpuscular Hemoglobin Concent 33, Red Cell Distribution Width 13.9, Platelet Count 227, Mean Platelet Volume 9.6, Immature Granulocyte % (Auto) 0, Neutrophils (%) (Auto) 78, Lymphocytes (%) (Auto) 13, Monocytes (%) (Auto) 7, Eosinophils (%) (Auto) 1, Basophils (%) (Auto) 1, Neutrophils # (Auto) 5.8, Lymphocytes # (Auto) 1.0, Monocytes # (Auto) 0.5, Eosinophils # (Auto) 0.1, Basophils # (Auto) 0.0, Immature Granulocyte # (Auto) 0.0, Sodium Level 138, Potassium Level 4.1, Chloride Level 106, Carbon Dioxide Level 21, Anion Gap 11, Blood Urea Nitrogen 11, Creatinine 1.09, Estimat Glomerular Filtration Rate 54, BUN/Creatinine Ratio 10, Glucose Level 76, Calcium Level 9.3, Corrected Calcium 9.7, Magnesium Level 2.0, Total Bilirubin 0.6, Aspartate Amino Transf (AST/SGOT) 62, Alanine Aminotransferase (ALT/SGPT) 36, Alkaline Phosphatase 87, Total Protein 6.3, Albumin 3.5, Phosphorus Level 3.8, Triglycerides Level 57, Cholesterol Level 122, LDL Cholesterol Direct 64, VLDL Cholesterol 11, HDL Cholesterol 41 05/28/23 10:28: Glucometer 90 05/29/23 05:30: White Blood Count 7.8, Red Blood Count 3.52, Hemoglobin 10.3, Hematocrit 31, Mean Corpuscular Volume 89, Mean Corpuscular Hemoglobin 29, Mean Corpuscular Hemoglobin Concent 33, Red Cell Distribution Width 14.2, Platelet Count 247, Mean Platelet Volume 9.3, Immature Granulocyte % (Auto) 0, Neutrophils (%) (Aut o) 77, Lymphocytes (%) (Auto) 13, Monocytes (%) (Auto) 8, Eosinophils (%) (Auto) 1, Basophils (%) (Auto) 1, Neutrophils # (Auto) 6.0, Lymphocytes # (Auto) 1.0, Monocytes # (Auto) 0.6, Eosinophils # (Auto) 0.1, Basophils # (Auto) 0.1, Immature Granulocyte # (Auto) 0.0, Sodium Level 139, Potassium Level 3.7, Chloride Level 106, Carbon Dioxide Level 23, Anion Gap 10, Blood Urea Nitrogen 12, Creatinine 0.99, Estimat Glomerular Filtration Rate 61, BUN/Creatinine Ratio 12, Glucose Level 78, Calcium Level 9.4, Corrected Calcium 9.7, Magnesium Level 2.3, Total Bilirubin 0.5, Aspartate Amino Transf (AST/SGOT) 64, Alanine Aminotransferase (ALT/SGPT) 33, Alkaline Phosphatase 96, Total Protein 6.6, Albumin 3.6 Discharge Home Medications: Active Scripts Active Aspirin EC (Aspirin) 81 Mg Tablet.dr 81 Mg PO DAILY 30 Days Atorvastatin Calcium 80 Mg Tablet 80 Mg PO DAILY Enoxaparin Sodium 100 Mg/Ml Syringe 90 Mg SC Q12H 30 Days Ondansetron Odt (Ondansetron) 8 Mg Tab.rapdis 8 Mg SL Q4H PRN Reported Pantoprazole Sodium 40 Mg Tablet.dr 40 Mg PO DAILY Losartan Potassium 100 Mg Tablet 100 Mg PO HS Zyrtec (Cetirizine HCl) 10 Mg Tablet 10 Mg PO DAILY Potassium Chloride 10 Meq Tab.er.prt 10 Meq PO BID Instructions to patient/family Please see electronic discharge instructions given to patient. Clinical Quality Measures DVT/VTE Risk/Contraindication: Contraindications-Mechi: Other *list below* Other: dvt SHAMAR DAHL DO May 29, 2023 11:58
[2023-05-29 13:17] VITALS: BP 137/86
--- NOTE | 2023-05-29 17:56 | Consultation-Cardiology ---
HPI-Cardiology Cardiology Consultation: Date of Consultation 05/29/23 Time Seen by a Provider: 17:30 Date of Admission Attending Physician Senait Dahl DO Admitting Physician Admitting Physician: Senait Dahl DO Attending Physician: Senait Dahl DO Consulting Physician VETO MERCHANT MD, MA, FACP, FACC, FSCAI, CCDS Physician requesting consult: Dr Dahl HPI: Chief Complaint: CVA with left sided weakness Ms. Goldberg is a 72 yr old female admitted to 432 from the ED with CVA with left sided weakness. Her spouse is at the bedside. She reports on Sunday afternoon she developed weakness, inability to seaman with her left hand. EMS was initially called and transport was advised at that time, however she declined. Weakness of her left hand/arm persisted with developing numbness prompting her to come to the ED at that time. She denies any visual disturbances. No c/o palpitations. No CP or SOB. She reports she has had difficulty keeping her medications down recently and has had episodes of emesis after taking medications. She reports she has been compliant with her medications. She is adamant that she has not thrown up her Eliquis. She denies any dizziness, syncope or near syncope. She does have RLE swelling which has been present since April 2023 (newly dx DVT at that time). Review of Systems-Cardiology Review of Systems Constitutional: No chills, No fever, No lightheadedness, No malaise Eyes: No vision change Ears/Nose/Throat: No epistaxis, No recent hearing loss Respiratory: As described under HPI Cardiovascular: As described under HPI Gastrointestinal: As described under HPI Genitourinary: No dysuria, No hematuria Musculoskeletal: no symptoms reported Skin: No rash on exposed areas, No ulcerations on exposed areas Psychiatric/Neurological: As described under HPI; No anxiety, No depression Hematologic: No bleeding abnormalities FGV-Cbuxdo-Qjsiik Hx Patient Social History Smoking Status: Never a Smoker 2nd Hand Smoke Exposure: Yes Alcohol Use?: No Pt feels they are or have been: No Immunizations Up To Date Tetanus Booster (TDap): Less than 5yrs Date of Influenza Vaccine: Aug 30, 2020 Past Medical History PMH As described under Assessment. Family Medical History Family Medical History: Reported history of father having HTN and CVA. Mother had HTN. Allergies and Home Medications Allergies Coded Allergies: letrozole (Verified Allergy, Unknown, RASH, 05/14/23) Uncoded Allergies: TAPE (Allergy, Mild, BLISTERS, 05/27/09) Patient Home Medication List Home Medication List Reviewed: Yes Aspirin (Aspirin EC) 81 Mg Tablet.dr, 81 MG PO DAILY Prescribed by: SENAIT DAHL on 05/29/23 115 Atorvastatin Calcium (Atorvastatin Calcium) 80 Mg Tablet, 80 MG PO DAILY Prescribed by: SENAIT DAHL on 05/29/23 115 Cetirizine HCl (Zyrtec) 10 Mg Tablet, 10 MG PO DAILY, (Reported) Entered as Reported by: KORY AGUILAR on 05/14/231918 Last Action: Reviewed Enoxaparin Sodium (Enoxaparin Sodium) 100 Mg/Ml Syringe, 90 MG SC Q12H Prescribed by: SENAIT DAHL on 05/29/231157 Losartan Potassium (Losartan Potassium) 100 Mg Tablet, 100 MG PO HS, (Reported) Entered as Reported by: KORY AGUILAR on 05/14/231920 Last Action: Reviewed Ondansetron (Ondansetron Odt) 8 Mg Tab.rapdis, 8 MG SL Q4H PRN for NAUSEA/VOMITING Prescribed by: SENAIT DAHL on 05/17/23 115 Last Action: Reviewed Pantoprazole Sodium (Pantoprazole Sodium) 40 Mg Tablet.dr, 40 MG PO DAILY, (Reported) Entered as Reported by: SAMIR GUEVARA on 05/15/23 09 Last Action: Reviewed Potassium Chloride (Potassium Chloride) 10 Meq Tab.er.prt, 10 MEQ PO BID, (Reported) Entered as Reported by: KIRSTY GAMINO on 09/27/22 0842 Last Action: Reviewed Discontinued Medications Apixaban (Eliquis) 5 Mg Tablet, 5 MG PO BID Discontinued Reason: Duplicate Order Prescribed by: SENAIT DAHL on 05/17/23 115 Last Action: Discontinued Apixaban (Eliquis) 5 Mg Tablet, 5 MG PO BID, (Reported) Entered as Reported by: SAMIR GUEVARA on 05/28/23 112 Last Action: Reviewed Atorvastatin Calcium (Atorvastatin Calcium) 10 Mg Tablet, 10 MG PO HS, (Reported) Entered as Reported by: KIRSTY GAMINO on 09/27/22 0842 Last Action: Reviewed Calcium Carb/Vitamin D3/Vit K1 (Viactiv 650 mg-12.5 Mcg Chew) 650 Mg Calcium- 12.5 Mcg-40 Mcg Tab.chew, 1 EACH PO HS, (Reported) Discontinued Reason: No Longer Taking Entered as Reported by: KIRSTY GAMINO on 09/27/22841 Last Action: Discontinued Multivitamin/Iron/Folic Acid (Centrum Adults Tablet) 18 Mg Iron-400 Mcg Tablet, 1 EACH PO HS, (Reported) Discontinued Reason: No Longer Taking Entered as Reported by: SAMIR GUEVARA on 05/15/23926 Last Action: Discontinued [place]-3 Fatty Acids/Fish Oil ([place] 3 1,000 mg Softgel) 300 Mg-1,000 Mg Capsule, 1 EACH PO HS, (Reported) Discontinued Reason: No Longer Taking Entered as Reported by: SAMIR GUEVARA on 05/15/23926 Last Action: Discontinued Rutin/Hesp/Bioflav/C/Herb#196 (Bioflex Tablet) 40 Mg-25 Mg-50 Mg-500 Mg Tablet, 1 EACH PO BID, (Reported) Discontinued Reason: No Longer Taking Entered as Reported by: SAMIR GUEVARA on 05/15/23926 Last Action: Discontinued Turmeric Root Extract (Turmeric) 500 Mg Tablet, 500 MG PO BID, (Reported) Discontinued Reason: No Longer Taking Entered as Reported by: KIRSTY GAMINO on 09/27/22841 Last Action: Discontinued Physical Exam-Cardiology Physical Exam Vital Signs/I&O 05/29/23 05/29/23 05/29/23 05/29/23 07:53 08:00 11:50 13:17 Temp 36.7 36.3 36.3 Pulse 90 107 107 Resp 18 18 18 B/P (MAP) 155/85 (108) 137/86 (103) 137/86 Pulse Ox 96 95 96 96 O2 Delivery Room Air Room Air Room Air Room Air 05/29/23 00:00 Intake Total 1040 ml Output Total 525 ml Balance 515 ml Capillary Refill : Less Than 3 Seconds Constitutional: AAO x 3, well-developed, well-nourished HEENT: PERRL, hearing is well preserved, oral hygience is good Neck: No carotid bruit; carotid pulses are 2 + bilaterally Respiratory: No accessory muscle use, No respiratory distress; chest expansion is symmetric, chest is bilaterally symmetric, lungs clear to auscultation Cardiovascular: regular rate-rhythm; No JVD; S1 and S2 Gastrointestinal: No tender; soft, distended; No guarding; audible bowel sounds Extremities: other (RLE non-pitting edema) Neurologic/Psychiatric: other (LUE weakness with inablity to seaman) Skin: No rash on exposed areas, No ulcerations on exposed areas Data Review Labs Laboratory Tests 05/29/23 05:30: White Blood Count 7.8, Red Blood Count 3.52L, Hemoglobin 10.3L, Hematocrit 31L, Mean Corpuscular Volume 89, Mean Corpuscular Hemoglobin 29, Mean Corpuscular Hemoglobin Concent 33, Red Cell Distribution Width 14.2, Platelet Count 247, Mean Platelet Volume 9.3, Immature Granulocyte % (Auto) 0, Neutrophils (%) (Auto) 77H, Lymphocytes (%) (Auto) 13, Monocytes (%) (Auto) 8, Eosinophils (%) (Auto) 1, Basophils (%) (Auto) 1, Neutrophils # (Auto) 6.0, Lymphocytes # (Auto) 1.0, Monocytes # (Auto) 0.6, Eosinophils # (Auto) 0.1, Basophils # (Auto) 0.1, Immature Granulocyte # (Auto) 0.0, Sodium Level 139, Potassium Level 3.7, Chloride Level 106, Carbon Dioxide Level 23, Anion Gap 10, Blood Urea Nitrogen 12, Creatinine 0.99, Estimat Glomerular Filtration Rate 61, BUN/Creatinine Ratio 12, Glucose Level 78, Calcium Level 9.4, Corrected Calcium 9.7, Magnesium Level 2.3, Total Bilirubin 0.5, Aspartate Amino Transf (AST/SGOT) 64H, Alanine Aminotransferase (ALT/SGPT) 33, Alkaline Phosphatase 96, Total Protein 6.6, Albumin 3.6 Microbiology 05/27/23 MRSA Screen - Final, Complete MRSA not isolated A/P-Cardiology Assessment/Admission Diagnosis CVA with left arm numbness/weakness - MRI 05-29-23: Multifocal areas of acute/subacute ischemia involving the bilateral cerebral and cerebellar hemispheres, the largest involvement in the precentral gyrus of the right frontal lobe. This likely corresponds to the patient's symptoms of left arm numbness and weakness. No associated hemorrhage or mass effect. Given the involvement in multiple vascular territories, embolic phenomenon is suspected - Carotid u/s of 7-10-23 shows no signif stenosis Liver mass: - U/S of the abd 05-14-23: Centrally necrotic mass posterior segment right lobe of liver suspicious for neoplasm. - Per CTA of the chest/abdomen on 05-14-23: A 1 cm mass in the medial aspect of the right lower lobe concerning for neoplasm. Further evaluation with PET scan should be considered. Additionally, there is a 4 mm nodule in the right upper lobe, likely granuloma. Moderate amount of abdominal ascites. Large mass in the liver concerning for neoplasm. There are additional hepatic cysts. H/O extensive RLE DVT - dx May 14, 2023 - has been on Eliquis Coronary artery disease - underwent LHC on 09/27/[address] 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 Dominant right coronary artery with mild disease nonobstructive disease. Mildly elevated left ventricular end-diastolic pressure. Normal aortic root. 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 Left main appears to arise from the right coronary cusp, sharing a common origin with the right coronary artery. The left main coronary artery passes between the aorta and pulmonary artery. There is some narrowing of the left main coronary artery as it passes between the pulmonary artery and aorta. - Patient was seen by Dr. Clemente at [facility]. Recommendation was conservative management and monitoring especially that the patient is 72 years old and she has been asymptomatic. Recommend to avoid strenuous exercise. 2D echo done in August [address] Hilliard with normal LV size, EF 50 to 55%, mild aortic regurgitation, PA pressure 35 to 40 mmHg. - Echocardiogram of 05-28-23 showed LVEF 60-65%. Grade 1 diastolic dysfunction. Trivial pericardial effusion circumferential to heart. PASP 35-40 mmHg Peripheral arterial disease - KYREE was done in [address] Vásquez showing slightly abnormal. No significant obstructive disease was noted, has been treated for Raynaud's phenomena History of chronic venous insufficiency Echocardiogram done in August 2021 showing normal LV size, EF 50-55%, mild AR PA pressure 35-40 mmHg Hypertension Hyperlipidemia - statin tx History of endometrial cancer, had a hysterectomy with Dr. Qiu, History of breast cancer in 2008, received radiation to the chest, currently following with Dr. Qiu Mild bilateral carotid stenosis, had a carotid ultrasound done at Dr. Diego's office Thyroid nodule noted incidentally during carotid ultrasound, patient reported that work-up was done and she had a biopsy and it was normal. Discussion and Recomendations Complex issues Recent extensive RLE DVT dx May 14, 2023 for which she has been on OAC with Eliquis. She now presents with CVA with left sided weakness/numbness showing involvement in multiple vascular territories, embolic suspected. This is likely d/t hypercoaguability d/t cancer mets. Advise oncology/hematology consult. - CVA management per Dr. Dahl She has recently been dx with peritoneal mass, liver mass suspected mets - management per Dr. Dahl CAD - continue ASA and statin Further recs will be based on her hospital course We would like to thank Dr. Dahl for this consult Clinical Quality Measures DVT/VTE Risk/Contraindication: Contraindications-Mechi: Other *list below* Other: dvt VETO MERCHANT MD FACP FAC CCDS May 29, 2023 17:56
== END 2023-05-29 13:15 | DRG 65 ==
LOC: EDUNIT# 18:28 → ER 18:29 → ICU 21:26 → 4TH 05-28 14:25
PROVIDERS: ADMIT Internal Medicine; ATTEND Internal Medicine
DX: I63.9 Cerebral infarction, unspecified (principal); C79.82 Secondary malignant neoplasm of genital organs; G83.24 Monoplegia of upper limb affecting left nondominant side; Z86.718 Personal history of other venous thrombosis and embolism; I10 Essential (primary) hypertension; E78.00 Pure hypercholesterolemia, unspecified; Z85.3 Personal history of malignant neoplasm of breast; Z85.828 Personal history of other malignant neoplasm of skin; Z66 Do not resuscitate; Z92.3 Personal history of irradiation; K21.9 Gastro-esophageal reflux disease without esophagitis; Z79.01 Long term (current) use of anticoagulants; R77.8 Other specified abnormalities of plasma proteins; R29.704 NIHSS score 4; Z79.82 Long term (current) use of aspirin; Z79.899 Other long term (current) drug therapy; R16.0 Hepatomegaly, not elsewhere classified; I25.10 Atherosclerotic heart disease of native coronary artery without angina pectoris; I73.9 Peripheral vascular disease, unspecified; I87.2 Venous insufficiency (chronic) (peripheral); I65.23 Occlusion and stenosis of bilateral carotid arteries; E04.1 Nontoxic single thyroid nodule
CPT/HCPCS: 36415; 51702; 70450; 70496; 70498; 70551; 71045; 80053; 80061; 81000; 82947; 83735; 84100; 84484; 85025; 85379; 85610; 85730; 87081; 93005; 93041; 93306; 93880; 94664

== ENCOUNTER 2023-05-29 10:50 | Inpatient (IN) | payer MEDICARE, OTHER ==
[~2023-05-29] VITALS: Ht 160 cm; Wt 85.3 kg
[2023-05-29] MEDS ORDERED: ATOR80TA76 PO (11:58)
[2023-05-29] MEDS ORDERED: ENOX100D4 SC (11:58)
[2023-05-29] MEDS ORDERED: ASPI-1238 PO (11:58)
--- NOTE | 2023-05-29 12:21 | PM&R Post Admission Assessment ---
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 HPI from ED "PT PRESENTS TO ED VIA EMS FROM HOME WITH COMPLAINTS OF L HAND WEAKNESS AROUND 1300 TODAY. PT REPORTS SHE CALLED EMS INITIALLY AND THEY ASSESSED HER AT HER HOME BUT SHE REFUSED TRANSPORT TO ED. PT THEN CALLED EMS BACK DUE TO HER HAND NOT GETTING BETTER AND NUMBNESS DEVELOPING." In the ED she was found to have continued weakness of the L hand. No other neurological deficits were noted on exam. Head CT showed chronic ischemic changes. CTA of the head and neck did not reveal any stenosis or aneurysm. She has a recent hx of right LE DVT and has been on eliquis since. She was admitted for further management and workup of her acute neurological deficit. HPI on admission "Bridget Goldberg is a 72yo F with past medical hx of metastatic endometrial cancer, HTN, DVT, and GERD who presented to the ED on 05/27 with complaints of L upper extremity weakness that began mid day 05/27. She initially decided not to come to the ED because she thought her symptoms were improving at home. Her weakness persisted and she began to develop numbness. In the ED head CT and CTA were negative for hemorrhage or acute ischemia. MRI pending. On exam today she is still complaining of weakness mainly of the L hand and wrist. She has slightly diminished sensation to the palm and dorsum of the L hand as well. She has never has symptoms like this in the past and denies any hx of CVA or TIA. She has normal strength and sensation of the shoulder and elbow bilaterally. No cranial nerve or lower extremity deficits noted. She denies any pain the area. Denies shortness of breath, chest pain, N/V/D and fever/ chills." She underwent MRI of the brain which showed multiple small infarcts consistent with embolic disease. TTE and carotid u/s were negative for finding a source of this embolism. She is noted to have recent recurrence of her endometrial cancer with metastasis making her hypercoagulable. Cardiology and Heme/onc were consulted. Switched from eliquis to lovenox due to her failure of the prior medication. Atorvastatin and aspirin were resumed. PT/OT consulted to work on regaining function of her L hand. On 05/29 discussed with her and her the possibility of inpatient rehab to work on regaining function of L hand as much as possible with a consult from Dr Oscar planned for 05/30. Her and her were agreeable to this plan and will move to inpatient rehab on 05/29. Past Ojupabx-Erulim-Ffqcgy Hx Past Med/Social Hx: Reviewed Nursing Past Med/Soc Hx, Reviewed and Corrections made Patient Social History Marrital Status: Employed/Student: retired Alcohol Use: Denies Use Smoking Status: Never a Smoker 2nd Hand Smoke Exposure: Yes Recent Hopitalizations: No Immunizations Up To Date Tetanus Booster (TDap): Less than 5yrs Date of Influenza Vaccine: Aug 30, 2020 Seasonal Allergies Seasonal Allergies: Yes Past Medical History Surgeries: Breast, Hysterectomy, Lumpectomy, Tonsillectomy Currently Using CPAP: No Currently Using BIPAP: No Cardiac: High Cholesterol, Hypertension Neurological: Neuropathy Reproductive: Yes (THICKEN ENDOMETRIUM) Sexually Transmitted Disease: No HIV/AIDS: No Menopausal Cancer: Skin, Breast, Uterine Did You Recieve Any Treatments: Yes What Type of Treatment Did You: Radiation, Surgical Intervention History of Blood Disorders: No Adverse Reaction to Blood Miller: No Family History No Pertinent Family Hx PM&R Allergy/Meds/Data Review Allergies Coded Allergies: letrozole (Verified Allergy, Unknown, RASH, 05/14/23) Uncoded Allergies: TAPE (Allergy, Mild, BLISTERS, 05/27/09) Home Medications Scheduled Aspirin (Aspirin EC), 81 MG PO DAILY Atorvastatin Calcium (Atorvastatin Calcium), 80 MG PO DAILY Cetirizine HCl (Zyrtec), 10 MG PO DAILY, (Reported) Enoxaparin Sodium (Enoxaparin Sodium), 90 MG SC Q12H Losartan Potassium (Losartan Potassium), 100 MG PO HS, (Reported) Pantoprazole Sodium (Pantoprazole Sodium), 40 MG PO DAILY, (Reported) Potassium Chloride (Potassium Chloride), 10 MEQ PO BID, (Reported) Scheduled PRN Ondansetron (Ondansetron Odt), 8 MG SL Q4H PRN for NAUSEA/VOMITING Discontinued Medications Apixaban (Eliquis), 5 MG PO BID Discontinued Reason: Duplicate Order Apixaban (Eliquis), 5 MG PO BID, (Reported) Atorvastatin Calcium (Atorvastatin Calcium), 10 MG PO HS, (Reported) Calcium Carb/Vitamin D3/Vit K1 (Viactiv 650 mg-12.5 Mcg Chew), 1 EACH PO HS, (Reported) Discontinued Reason: No Longer Taking Multivitamin/Iron/Folic Acid (Centrum Adults Tablet), 1 EACH PO HS, (Reported) Discontinued Reason: No Longer Taking Pageton-3 Fatty Acids/Fish Oil (Pageton 3 1,000 mg Softgel), 1 EACH PO HS, (Reported) Discontinued Reason: No Longer Taking Rutin/Hesp/Bioflav/C/Herb#196 (Bioflex Tablet), 1 EACH PO BID, (Reported) Discontinued Reason: No Longer Taking Turmeric Root Extract (Turmeric), 500 MG PO BID, (Reported) Discontinued Reason: No Longer Taking Current Medications Current Medications Reviewed Review of Systems Constitutional: see HPI, malaise, weakness EENTM: no symptoms reported Respiratory: no symptoms reported Cardiovascular: no symptoms reported Gastrointestinal: constipation Genitourinary: no symptoms reported Musculoskeletal: back pain, joint pain, muscle weakness Skin: no symptoms reported Psychiatric/Neurological: Anxiety, Depressed, Numbness, Weakness All Other Systems Reviewed Negative Unless Noted: Yes Physical Exam Physical Exam Vital Signs Capillary Refill : Height, Weight, BMI Height: 5'4" Weight: 185lbs. oz. 83.682732tg; 32.61 BMI Method:Stated General Appearance: No Apparent Distress, WD/WN, Chronically ill Eyes: Bilateral Eye Normal Inspection, Bilateral Eye PERRL HEENT: PERRL/EOMI, Normal ENT Inspection, Pharynx Normal Neck: Full Range of Motion, Normal Inspection, Non Tender, Supple, Carotid Bruit Respiratory: Chest Non Tender, Lungs Clear, Normal Breath Sounds, No Accessory Muscle Use, No Respiratory Distress Cardiovascular: Regular Rate, Rhythm, No Edema, No Gallop, No JVD, No Murmur, Normal Peripheral Pulses Gastrointestinal: Normal Bowel Sounds, No Organomegaly, No Pulsatile Mass, Non Tender, Soft Back: Normal Inspection, No CVA Tenderness, No Vertebral Tenderness Extremity: Normal Capillary Refill, Normal Inspection, Normal Range of Motion, Non Tender, No Calf Tenderness, No Pedal Edema Neurologic/Psychiatric: Alert, Oriented x3, Normal Mood/Affect, supervisor composing room II-XII Norm as Tested, Abnormal Gait, Motor Weakness (left upper extremity 0/5 hand to shoulder) Skin: Normal Color, Warm/Dry Lymphatic: No Adenopathy PM&R Medical Assessment & Plan REHAB/MEDICAL ASSESSMENT AND PLAN: REHAB IMPAIRMENT GROUP: CVA ETIOLOGIC DIAGNOSIS: CVA The comorbidities that impact the patients function and/or functional outcome by: endometrial cancer with mets s/p peritoneal mass biopsy h/o uterine cancer s/p hyst 03/2021, breast cancer hx, right DVT subacute failed OAC REHAB PLAN: The patient is being admitted to our comprehensive inpatient rehabilitation facility and can tolerate the intensity of service consisting of at least: 180 minutes of therapy a day, 5 out of 7 days a week Rehab treatment will consist of: PT OT will focus on regaining function with use of AD in order to increase ambulatory ability and stamina along with left hand function to increase independence The patient/family has a good understanding of our discharge process and will benefit from an interdisciplinary inpatient rehabilitation program. The patient has potential to make improvement and is in need of at least two of the following multidisciplinary therapies including but not limited to physical, occupational, speech, and prosthetics and orthotics. Additionally the patient will need services from respiratory, nutritional services, wound care, psychology, etc. (Customize this to each patient). Given the patients complex condition and risk of further medical complications, rehabilitation services cannot be safely or effectively provided at a lower level of care such as a snf facility. BARRIERS TO DISCHARGE: Left sided weakness ESTIMATED LOS: 14 days DISPOSITION: Home RELEVANT CHANGES SINCE PREADMISSION SCREENING: I have compared the patients medical and functional status at the time of the preadmission screening and there are: no changes PROGNOSIS: Fair REHABILITATION GOALS: 1. PT OT will focus on regaining function with use of AD in order to increase ambulatory ability and stamina along with left hand function to increase independence All the above goals were reviewed with the patient and he/she is in agreement. By signing this document, I acknowledge that I have personally performed a full physical examination on this patient within 24 hours of admission to this inpatient rehabilitation facility and have determined the patient to be able to tolerate the above course of treatment at an intensive level for a reasonable period of time. I will be completing a detailed individualized Plan of Care for this patient by day #4 of the patients stay based upon the Preadmission Screen, the Post-Admission Evaluation, and the therapy evaluations. Admission Dx/Comorbidities: (1) Embolic stroke ICD Codes: I63.9 - Cerebral infarction, unspecified Assessment/Plan Assessment and Plan Assess & Plan/Chief Complaint Acute neurological deficit of the L upper extremity-MRI revealed showering of emboli-failed OAC placed on Lovenox and consulted Cardiology and reviewed ECHO CVA CT and CTA have not shown evidence of hemorrhage or acute ischemia MRI showed multifocal areas of acute/subacute ischemia involving the bilateral cerebral and cerebellar hemispheres Due to multiple involved areas, embolic disease suspected Weakness has not improved Continue atorvastatin and aspirin Eliquis switched to 90mg of lovenox BID for anticoagulation Echo and carotid u/s pending. Attempting to identify source of embolism Moved to ARU-05/29/23 PT/OT Metastatic endometrial cancer Underwent hysterectomy 03/2021 Dr Qiu recent scans revealed recurrence with metastasis confirmed on peritoneal mass IR CT guided biopsy patient has plans to follow with Dr Oscar-she will see her ARU 05/30/23 Hx of DVT on anticoagulation of Eliquis and DC placed on Lovenox since failed with emboli causing CVA Elevated D dimer Elevated troponin Recently treated for LE DVT and placed on anticoagulation H/O Breast cancer Diet- regular DVT ppx- anticoagulated with lovenox Code- DNR SHAMAR DAHL DO May 29, 2023 12:21
[2023-05-29] MEDS ORDERED: MELATONIN 3 MG TABLET PO PRN ×2 (12:30→16:45)
[2023-05-29] MEDS ORDERED: LACTULOSE SYRUP 10GM/15ML (ENULOSE) 30ML UDC PO PRN ×2 (12:30→16:45)
[2023-05-29] MEDS ORDERED: diphenhydrAMINE 25 MG TAB (BENADRYL) PO PRN (12:30)
[2023-05-29] MEDS ORDERED: DOCUSATE SODIUM 100 MG (COLACE) CAP PO PRN (12:30)
[2023-05-29] MEDS ORDERED: BISACODYL 10 MG SUPP (DULCOLAX) PR PRN ×2 (12:30→16:45)
[2023-05-29] MEDS ORDERED: CALCIUM CARBONATE 500 MG (TUMS) TAB.CHEW PO PRN ×2 (12:30→16:45)
[2023-05-29] MEDS ORDERED: ACETAMINOPHEN 325 MG TABLET PO PRN ×2 (12:30→16:45)
[2023-05-29] MEDS ORDERED: ALPRAZolam 0.25 MG (XANAX) TAB PO PRN (12:30)
[2023-05-29] MEDS ORDERED: guaiFENesin/CODEINE (ROBITUSSIN AC) 10ML UDC PO PRN (12:30)
[2023-05-29] MEDS ORDERED: LOPERAMIDE 2 MG (IMODIUM) TABLET PO PRN (12:30)
[2023-05-29] MEDS ORDERED: FLEET ENEMA ADULT 1 EA BTL PR PRN (12:30)
[2023-05-29 13:15] VITALS: BP 162/78
--- OUTSIDE RECORDS SUMMARY | 2023-05-29 14:01 | XMS REPORT ---
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 Name Role Phone [place] Unavailable PROBLEMS No Information ALLERGIES No Known Allergies ENCOUNTERS from 1950 to 2023-05-27 Encounter Location Date Provider Diagnosis [facility] [address] [facility] [id number] [place] [address] May, [place] Acute swimmer's ear of left side H60.332 and Non-recurrent acute suppurative otitis media of left ear without spontaneous rupture of tympanic membrane H66.002 IMMUNIZATIONS Vaccine Route Administration Date Status PRIVATE TDAP (BOOSTRIX) IM Intramuscular Sep 26, 2020 Adminis tered SOCIAL HISTORY Sex Assigned At : Social History Observation Description Sex Assigned At Unknown PHQ2 Question Answer Notes In the last 2 weeks, how often have you had little interest or pleasure in doing things? Not at all In the last 2 weeks, how often have you been feeling down, depressed, or hopeless? Not at all Total PHQ2 Score 0 REASON FOR REFERRAL No Information VITAL SIGNS Weight 187 lbs May, Weight-kg 84.82 kg May, Temperature 97.2 degrees Fahrenheit May, Heart Rate 96 bpm May, Respiratory Rate 14 bpm May, Oximetry 99 % May, Blood pressure systolic 116 mmHg May, Blood pressure diastolic 78 mmHg May, MEDICATIONS Medication SIG (Take, Route, Frequency, Duration) Notes Start Da te End Date Status Losartan Potassium 50 MG Oral for 90 Active Acetaminophen-Codeine #3 300-30 MG Oral for 2 Not-Taking Atorvastatin Calcium 10 MG Oral for 90 Active hydroCHLOROthiazide 12.5 MG Oral for 90 Active Potassium Chloride ER 10 MEQ Oral for 90 Active Amoxicillin 500 MG 1 capsule Orally every 8 hrs for 10 days May, Active PROCEDURES No Information RESULTS No Results REASON FOR VISIT Ear pain - pt states her left ear hurts. x 4 days. - [facility] MEDICAL (GENERAL) HISTORY Type Description Date Medical History Breast Cancer Medical History endometrial cancer Surgical History tonsillectomy Surgical History hysterectomy Goals Section No Information Health Concerns No Information MEDICAL EQUIPMENT No Information MENTAL STATUS No Information FUNCTIONAL STATUS No Information ASSESSMENTS Encounter Date Diagnosis Assessment Notes Treatment Notes Treatm ent Clinical Notes May, Acute swimmer's ear of left side (ICD-10 - H60.3 32) Ear Infection (Otitis Media): Care Instructions material was printed May, Non-recurrent acute suppurat maria elena otitis media of left ear without spontaneous rupture of tympanic membrane (ICD-10 - H66.002) PLAN OF TREATMENT Medication Medication Name Sig Start Date Stop Date Amoxicillin 500 MG 1 capsule Orally every 8 hrs for 10 days 2020 Treatment Notes Assessment Notes Clinical Notes Acute swimmer's ear of left side Ear Infection (Otitis Media): Care Instructions material was printed Insurance Providers Payer Name Payer Address Payer Phone Insured Name Patient Relati onship to Insured Coverage Start Date Coverage End Date Subscriber Number Group Nu mber [employer] MEDIC[employer] Part A [address] [facility] [phone] AshlynChandakiley Self - patient is the insured [id number] [facility] [address] [facility] [id number] Ashlyn Bridget Self - patient is the insured [id number]
--- NOTE | 2023-05-29 15:41 | Occupational Therapy Eval ---
OT Evaluation-General/PLF Medical Diagnosis Admission Date May 29, 2023 at 13:15 Medical Diagnosis: CVA with left sided weakness Onset Date: May 27, 2023 Therapy Diagnosis Therapy Diagnosis: Weakness, Decreased ADL skills Height/Weight Height (Feet): 5 Height (Inches): 4 Weight (Pounds): 185 Precautions Precautions/Isolations: Fall Prevention, Standard Precautions Weight Bear Status Weight Bearing Restriction: Weight Bearing/Tolerated Referral Physician: Amina Referral Reason: Activity Tolerance, Self Care, Evaluation/Treatment, Strengthening/ROM Medical History Pertinent Medical History: GERD, HTN Additional Medical History Cancer, DVT, hysterectomy Reviewed History: Yes Social History Home: Single Level Current Living Status: Significant Other Entry Into Home: Stairs With Railing Steps Into Home: 4 ADL-Prior Level of Function SCALE: Activities may be completed with or without assistive devices. 9-Wiuzfgggcz-tkovxmc completes the activity by him/herself with no assistance from a helper. 5-Set-up or Clean-up Assistance-helper sets up or cleans up; patient completes activity. [place] assists only prior to or following the activity. 4-Supervision or Touching Assistance-helper provides verbal cues and/or touching/steadying and/or contact guard assistance as patient completes activity. Assistance may be provided throughout the activity or intermittently. 3-Partial/Moderate Assistance-helper does LESS THAN HALF the effort. [place] lifts, holds or supports trunk or limbs, but provides less than half the effort. 2-Substantial/Maximal Assistance-helper does MORE THAN HALF the effort. [place] lifts or holds trunk or limbs and provides more than half the effort. 1-Uwdajmzuz-boncmg does ALL the effort. Patient does none of the effort to co mplete the activity. Or, the assistance of 2 or more helpers is required for the patient to complete the activity. If activity was not attempted, code reason: 7-Patient Refused. 9-Not Applicable-not attempted and the patient did not perform the activity before the current illness, exacerbation or injury. 10-Not Attempted due to Environmental Limitations-(lack of equipment, weather restraints, etc.). 88-Not Attempted due to Medical Conditions or Safety Concerns. ADL PLOF Comments Pt. was independent with daily skills prior to this hospitalization. She reports that she did have a knee injury approximately 2 years ago, and currently had a blood clot in right LE. She used a cane for these events but otherwise did not use an assistive device. Self Care: Independent Functional Cognition: Independent DME/Equipment: Bath Chair, Grab Bars, Shower, Tall Toilet, Tub/Shower DME/Equipment Comments Pt. has a fully handicap accessible bathroom, but states that it is in a part of the home that has steps to get to it. It has grab bars and a walk in shower with chair. If she bypassed the stairs, she would have to walk quite a ways around the house to get into that entrance. Pt. does have a tub/shower in the main part of the home but does not have a tub bench. She does have tall toilets in each bathroom. OT Current Status Subjective Pt. does not report pain, but does report being very tired throughout treatment. Mental Status/Objective Patient Orientation: Person, Place, Time, Situation Attachments: Mosquera Catheter, IV Current Glasses/Contacts: Yes Hand Dominance: Right Upper Extremity ROM Right- WFL Left- Pt. is able to actively flex left shoulder to approximately 70*. It is slow and takes great effort. She is able to bend her left elbow with effort and poor strength overall. She has no active movement in her left wrist or fingers. Upper Extremity Sensation Pt. states that she can feel everything in left UE, but it is diminished. She was approximately 50% accurate with light touch testing on dorsal hand and wrist. ADL-Treatment Eating (QC): 5 (Set up) Oral Hygiene (QC): 5 (Set up to open toothpaste, set up water and cup.) Shower/Bathe Self (QC): 2 (Max assist overall. Pt. required assistance to wash under left UE, under pannus, front and rear guy area, and bilateral feet. ) Upper Body Dressing (QC): 10 (Pt. did not have fresh clothing available, [facility] Lower Body Dressing (QC): 2 On/Off Footwear (QC): 2 (Max assist to doff/don slipper socks.) Toileting Hygiene (QC): 2 (Pt. requires min/mod assist in stance while OT cleanses rear guy area after BM.) Other Treatments Pt. seen for partial co-treatment with PT this date s/p CVA with resultant left hemiplegia. OT focused on ADL skills and UE positioning/movement while PT focused on transfers and LE exercises/movement. Pt. is able to stand at selam cane with CGA/min assist, depending on how tired she is. She requires assistance for positioning of left UE throughout treatment. Pt. greatly educated regarding left UE for awareness and safety, as well as attempting movement and self ranging. Pt. is able to ambulate at beginning of treatment with selam cane, with need of min assist. By end of session she required mod assist for transfers due to significant fatigue. After pt. showered she transferred to wheelchair and was able to brush her hair and teeth seated at wheelchair level. Pt. did attempt to open toothpaste with right hand, but unable to do so. Pt. attempted to self propel wheelchair but required min/mod assistance to stay in line. She is able to use right LE, but would benefit from having her shoes. Pt. transferred to bed toward weak side due to set up of room. Required mod/max assist due to fatigue. All needs met in bed and pt. with PT when OT left room. Education OT Patient Education: Correct positioning, Exercise program, Modified ADL techniques, Progress toward Goal/Update tx plan, Purpose of tx/functional acti vities, Reviewed precautions, Rehab process, Transfer techniques, W/C management Teaching Recipient: Patient Teaching Methods: Demonstration, Discussion Response to Teaching: Verbalize Understanding, Return Demonstration BIMS CAM BIMS Expression of Ideas and Wants: Without Difficulty Understanding Verbal Content: Understands IRF AMBER BIMS: IRF AMBER BIMS Response (Comments) Value Repitition of Three Words Three 3 Recalls Socks Yes, No Cue Required 2 Recalls Blue Yes, No Cue Required 2 Recalls Bed Yes, No Cue Required 2 Year Correct 3 Month Accurate Within 5 Days 2 Day Correct 1 Total 15 Patient Normally Able to Recal: Current Session, Location of own room, Staff Names and faces, That he/she in a hsp Memory/Recall Ability: Current Season, Location of Own Room, Staff Names and Faces, That He/She in Hospitall CAM Mental Status Change/Baseline: 0 Inattention: 0 Disorganized thinkin Altered level of consciousness: 0 OT Short Term Goals Short Term Goals Time Frame: Jun 12, 2023 Eatin Oral hygiene: 5 Toileting hygiene: 3 (Min assist with AE) Shower/bathe self: 3 (Min/mod assist with AE) Upper body dressin Lower body dressin (Min assist with AE) Putting on/taking off footwear: 3 (Min assist with AE) OT Usp Goals Usp Goals Time Frame: Jun 26, 2023 Acute change in mental status: 0 Inattention: 0 Disorganized thinkin Altered level of consciousness: 0 Eating (QC): 6 Oral Hygiene (QC): 6 Toileting Hygiene (QC): 6 Shower/Bathe Self (QC): 5 Upper Body Dressing (QC): 6 Lower Body Dressing (QC): 5 (With AE as needed) On/Off Footwear (QC): 6 (With AE as needed) Additional Goals: 1-Demonstrate ADL Tasks, 2-Verbalize Understanding, 3- ImproveStrength/Marlen 1=Demonstrate adherence to instructed precautions during ADL tasks. 2=Patient will verbalize/demonstrate understanding of assistive devices/m odifications for ADL. 3=Patient will improve strength/tolerance for activity to enable patient to perform ADL's. OT Education/Plan Problem List/Assessment Assessment: Decreased Activ Tolerance, Decreased UE Strength, Dependent Transfers, Impaired Bed Mobility, Impaired Coordination, Impaired Funct Balance, Impaired I ADL's, Impaired Self-Care Skills, Restricted Funct UE ROM Discharge Recommendations Plan/Recommendations: Continue POC Therapy Discharge Recommendati: Post Acute OT Treatment Plan/Plan of Care Treatment,Training & Education: Yes Patient would benefit from OT for education, treatment and training to promote independence in ADL's, mobility, safety and/or upper extremity function for ADL's. Plan of Care: ADL Retraining, Functional Mobility, UE Funct Exercise/Act Treatment Duration: Jun 26, 2023 Frequency: At least 5 of 7 days/Wk (IRF) Estimated Hrs Per Day: 1.5 hours per day Agreement: Yes Rehab Potential: Good Time Start Time: 13:30 Stop Time: 15:10 DATE: May 29, 2023 Total Time Billed (hr/min): 90 Billed Treatment Time 2846-0272 1, EVM x 15minutes, ADL x 15minutes [id number] PT eval, no charge [id number] ADL x [id number]. Please see above for designated roles. ZORA STEINBERG OT May 29, 2023 15:41
--- NOTE | 2023-05-29 15:46 | Physical Therapy Evaluation ---
PT Evaluation-General Medical Diagnosis Admission Date May 29, 2023 at 13:15 Medical Diagnosis: CVA Onset Date: May 27, 2023 Therapy Diagnosis Therapy Diagnosis: Weakness; Unsteady on feet; Decreased functional mobility Height/Weight Height (Feet): 5 Height (Inches): 4 Weight (Pounds): 185 Precautions Precautions/Isolations: Fall Prevention, Standard Precautions Weight Bear Status Right Lower Extremity: Right Full Weight Bearing Left Lower Extremity: Left Full Weight Bearing Referral Physician: Amina Reason for Referral: Evaluation/Treatment Medical History Pertinent Medical History: GERD, HTN Additional Medical History CA, HTN, DVT, GERD, Hysterectomy Current History CVA on 05/27/2023 and admitted to hospital on that date; Admitted to ARU on 05/29/2023 Reviewed History: Yes Social History Home: Single Level Current Living Status: Spouse Entry Into Home: Stairs With Railing PT Steps Into Home: 4 Pt lives with her spouse in an [place] house with 4 steps to enter/exit with B HR and several single steps throughout the home. Walk-in shower with seat, GBs, and tall toilet. Prior Prior Level of Function SCALE: Activities may be completed with or without assistive devices. 6-Ldcuxlvosr-yzwrxjs completes the activity by him/herself with no assistance from a helper. 5-Set-up or Clean-up Assistance-helper sets up or cleans up; patient completes activity. [place] assists only prior to or following the activity. 4-Supervision or Touching Assistance-helper provides verbal cues and/or touching/steadying and/or contact guard assistance as patient completes activity. Assistance may be provided throughout the activity or intermittently. 3-Partial/Moderate Assistance-helper does LESS THAN HALF the effort. Whatley lifts, holds or supports trunk or limbs, but provides less than half the effort. 2-Substantial/Maximal Assistance-helper does MORE THAN HALF the effort. [place] lifts or holds trunk or limbs and provides more than half the effort. 5-Qfmycijtt-ohwfew does ALL the effort. Patient does none of the effort to complete the activity. Or, the assistance of 2 or more helpers is required for the patient to complete the activity. If activity was not attempted, code reason: 7-Patient Refused. 9-Not Applicable-not attempted and the patient did not perform the activity before the current illness, exacerbation or injury. 10-Not Attempted due to Environmental Limitations-(lack of equipment, weather restraints, etc.). 88-Not Attempted due to Medical Conditions or Safety Concerns. Bed Mobility: 6 Transfers (B,C,W/C): 6 Gait: 6 Stairs: 6 Wheelchair Mobility: 9 Indoor Mobility (Ambulation): Independent Stairs: Independent Prior Devices Use: Other-see list below (SPC at times ) Prior Device Use: SPC At [facility], pt was Mod I with the SPC; does not own a FWW PT Evaluation-Current Subjective Pt is agreeable to PT. Pain Numeric Pain Scale: 0-No Pain Location: No Pain Reported Section J - Health Conditions 1. Rarely or not at all 2. Occasionally 3. Frequently 4. Almost constantly 8. Unable to answer Pain Effect on Sleep: 1 Pain Interference with Therapy: 1 Pain Interference w/Day-to-Day: 1 Pt/Family Goals Safely return home Objective Patient Orientation: Person, Place, Time, Situation Attachments: Mosquera Catheter ROM/Strength ROM Upper Extremities See OT note ROM Lower Extremities WFL Strength Upper Extremities See OT note Strength Lower Extremities R LE MMT = 3+/5 grossly L LE MMT = 3/5 grossly Integumentary/Posture Integumentary See nurses note Bowel Incontinence: No Bladder Incontinence: Mosquera Cath Sensory Vision: Wears Glasses Hearing: Functional Hand Dominance: Right Sensation Right Upper Extremit: Intact Sensation Left Upper Extremity: Intact Sensation Right Lower Extremit: Intact Sensation Left Lower Extremity: Intact Transfers Roll Left & Right (QC): 3 (Min A ) Sit to Lying (QC): 3 (Min A ) Lying to Sitting/Side of Bed(Q: 3 (Min A ) Sit to Stand (QC): 3 (Min A ) Chair/Hzo-xj-Qetvj Xfer(QC): 3 (Min A ) Toilet Transfer (QC): 3 (Min A ) Car Transfer (QC): 88 Gait Does the Patient Walk?: Yes Mode of Locomotion: Both Anticipated Mode of Locomotion: Both Walk 10 feet (QC): 3 (Min A ) Walk 50 ft with 2 Turns(QC): 88 Walk 150 ft (QC): 88 Walking 10ft/uneven surface-QC: 88 Gait Assistive Device: Walker Christiano Wheelchair Training Does the Pt Use a Wheelchair?: Yes Wheel 50 ft with 2 turns (QC): 3 (Min A ) Wheel 150 ft (QC): 3 (Min A ) Type of Wheelchair: Manual Stairs 1 Step (curb) (QC): 88 4 Steps (QC): 88 12 Steps (QC): 88 Walking Assistive Device: Walker Balance Sitting Static: Good Sitting Dynamic: Fair Standing Static: Poor Standing Dynamic: Poor Picking up an Object (QC): 3 (Min A ) Special Test Comments KU standing balance scale = 2+/5 (goal = 3+/5) Treatment PT eval completed Assessment/Needs Pt tolerated PT well with good effort Rehab Potential: Good Post Rehab Potential-Barriers: L sided weakness/unsteadiness Equipment Needs Christiano-walker PT Correction Goals Correction Goals PT Correction Goals Time Frame: Jun 08, 2023 Roll Left to Right (QC): 4 (Pt will be SBA/CGA for all aspects of functional mobility to be able to safely return home with spouse. ) Sit to Lying (QC): 4 (Pt will be SBA/CGA for all aspects of functional mobility to be able to safely return home with spouse. ) Lying-Sitting on Side/Bed(QC): 4 (Pt will be SBA/CGA for all aspects of functional mobility to be able to safely return home with spouse. ) Sit to Stand (QC): 4 (Pt will be SBA/CGA for all aspects of functional mobility to be able to safely return home with spouse. ) Chair/Wmp-yo-Vsvjk Xfer(QC): 4 (Pt will be SBA/CGA for all aspects of funct ional mobility to be able to safely return home with spouse. ) Toilet/Commode Transfer (QC): 4 (Pt will be SBA/CGA for all aspects of functional mobility to be able to safely return home with spouse. ) Car Transfer (QC): 4 (Pt will be SBA/CGA for all aspects of functional mobility to be able to safely return home with spouse. ) Does the Patient Walk: Yes Walk 10 feet (QC): 4 (Pt will be SBA/CGA for all aspects of functional mobility to be able to safely return home with spouse. ) Walk 10ft-Uneven Surface(QC): 4 (Pt will be SBA/CGA for all aspects of functional mobility to be able to safely return home with spouse. ) Walk 50ft with 2 Turns (QC): 4 (Pt will be SBA/CGA for all aspects of functional mobility to be able to safely return home with spouse. ) Walk 150 ft (QC): 4 (Pt will be SBA/CGA for all aspects of functional mobility to be able to safely return home with spouse. ) Does the Pt use WC or Scooter?: Yes Wheel 50 feet with 2 turns (QC: 4 (Pt will be SBA/CGA for all aspects of functional mobility to be able to safely return home with spouse. ) Type: Manual Wheel 150 feet: 4 (Pt will be SBA/CGA for all aspects of functional mobility to be able to safely return home with spouse. ) Type: Manual 1 Step (curb) (QC): 4 (Pt will be SBA/CGA for all aspects of functional mobility to be able to safely return home with spouse. ) 4 Steps (QC): 4 (Pt will be SBA/CGA for all aspects of functional mobility to be able to safely return home with spouse. ) 12 Steps (QC): 4 (Pt will be SBA/CGA for all aspects of functional mobility to be able to safely return home with spouse. ) Picking up an Object (QC): 4 (Pt will be SBA/CGA for all aspects of functional mobility to be able to safely return home with spouse. ) KU standing balance scale goal = 3+/5 PT Plan Problem List Problem List: Activity Tolerance, Functional Strength, Safety, Balance, Gait, Transfer, Bed Mobility, ROM, Other Treatment/Plan Treatment Plan: Continue Plan of Care Treatment Plan: Bed Mobility, Concurrent Therapy, Education, Functional Activity Marlen, Functional Strength, Group Therapy, Gait, Safety, Therapeutic Ex ercise, Transfers Treatment Duration: Jun 08, 2023 Frequency: At least 5 of 7 days/Wk (IRF) Estimated Hrs Per Day: 1.5 hours per day Patient and/or Family Agrees t: Yes Safety Risks/Education Patient Education: Gait Training, Transfer Techniques, Correct Positioning, W/C Management, Safety Issues Teaching Recipient: Patient Teaching Methods: Demonstration, Discussion Response to Teaching: Verbalize Understanding, Return Demonstration, Reinforcement Needed Discharge Recommendations Therapy Discharge Recommendati: Home & Family Equpiment Recommendations-D/C: Other, Please Explain (Christiano-walker ) Discharge Status/Home Program Cont per POC Barriers to Progress L sided weakness/unsteadiness Target Placement Home with spouse Time Time In: 1400 Time Out: 1410 DATE: May 29, 2023 Total Billed Treatment Time: 10 Total Billed Treatment 10 min MARIA ELENA LEDBETTER PT May 29, 2023 15:46
--- NOTE | 2023-05-29 16:08 | Physical Therapy Daily Note ---
PT Daily Note-Current Subjective Pt sitting in shower working w/Ot upon arrival. Pt agrees to PT/OT co-treat. Pain Location: No Pain Reported Section J - Health Conditions 1. Rarely or not at all 2. Occasionally 3. Frequently 4. Almost constantly 8. Unable to answer Pain Effect on Sleep: 1 Pain Interference with Therapy: 1 Pain Interference w/Day-to-Day: 1 Mental Status Patient Orientation: Person, Place, Situation Attachments: IV Transfers SCALE: Activities may be completed with or without assistive devices. 9-Cotcunfidy-mifmtam completes the activity by him/herself with no assistance from a helper. 5-Set-up or Clean-up Assistance-helper sets up or cleans up; patient completes activity. [place] assists only prior to or following the activity. 4-Supervision or Touching Assistance-helper provides verbal cues and/or touching/steadying and/or contact guard assistance as patient completes activity. Assistance may be provided throughout the activity or intermittently. 3-Partial/Moderate Assistance-helper does LESS THAN HALF the effort. Orinda lifts, holds or supports trunk or limbs, but provides less than half the effort. 2-Substantial/Maximal Assistance-helper does MORE THAN HALF the effort. [place] lifts or holds trunk or limbs and provides more than half the effort. 6-Meumfsnzy-pwmxtq does ALL the effort. Patient does none of the effort to complete the activity. Or, the assistance of 2 or more helpers is required for the patient to complete the activity. If activity was not attempted, code reason: 7-Patient Refused. 9-Not Applicable-not attempted and the patient did not perform the activity before the current illness, exacerbation or injury. 10-Not Attempted due to Environmental Limitations-(lack of equipment, weather restraints, etc.). 88-Not Attempted due to Medical Conditions or Safety Concerns. Sit to Lying (QC): 2 Sit to Stand (QC): 2 Weight Bearing Right Lower Extremity: Right Full Weight Bearing Left Lower Extremity: Left Full Weight Bearing Wheelchair Training Does the Pt Use a Wheelchair?: Yes Wheel 50 ft with 2 turns (QC): 2 Type of Wheelchair: Manual Exercises Supine Ex: Ankle pumps, Quad Set, Glut sets, Heel Slides, Hip abd/add Supine Reps: 15 Treatments Pt. seen for partial co-treatment with PT this date s/p CVA with resultant left hemiplegia. OT focused on ADL skills and UE positioning/movement while PT focused on transfers and LE exercises/movement. Pt. is able to stand at selam cane with CGA/min assist, depending on how tired she is. She requires assistance for positioning of left UE throughout treatment. Pt. greatly educated regarding left UE for awareness and safety, as well as attempting movement and self ranging. Pt. is able to ambulate at beginning of treatment with selam cane, with need of min assist. By end of session she required mod assist for transfers due to significant fatigue. After pt. showered she transferred to wheelchair and was able to brush her hair and teeth seated at wheelchair level. Pt. did attempt to open toothpaste with right hand, but unable to do so. Pt. attempted to self propel wheelchair but required min/mod assistance to stay in line. She is able to use right LE, but would benefit from having her shoes. Pt. transferred to bed toward weak side due to set up of room. Required mod/max assist due to fatigue. All needs met in bed and pt. with PT when OT left room. Ind ([id number]): Pt completes Supine EX in bed before resting at end of tx. All needs met, call light in hand. Assessment Current Status: Fair Progress Pt fatigues easily and needs RB to recover. TF decrease throughout tx (from Min A to Mod A) depending on fatigue. 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 ) Sit to Lying (QC): 4 (Pt will be SBA/CGA for all aspects of functional mobility to be able to safely return home with spouse. ) Lying-Sitting on Side/Bed(QC): 4 (Pt will be SBA/CGA for all aspects of functional mobility to be able to safely return home with spouse. ) Sit to Stand (QC): 4 (Pt will be SBA/CGA for all aspects of functional mobility to be able to safely return home with spouse. ) Chair/Dug-gf-Drxuc Xfer(QC): 4 (Pt will be SBA/CGA for all aspects of functional mobility to be able to safely return home with spouse. ) Toilet Transfer (QC): 4 (Pt will be SBA/CGA for all aspects of functional mobility to be able to safely return home with spouse. ) Car Transfer (QC): 4 (Pt will be SBA/CGA for all aspects of functional mobility to be able to safely return home with spouse. ) Does the Patient Walk: Yes Walk 10 feet (QC): 4 (Pt will be SBA/CGA for all aspects of functional mobility to be able to safely return home with spouse. ) Walk 50ft with 2 Turns (QC): 4 (Pt will be SBA/CGA for all aspects of functional mobility to be able to safely return home with spouse. ) Walk 150 ft (QC): 4 (Pt will be SBA/CGA for all aspects of functional mobility to be able to safely return home with spouse. ) Walking 10ft on Uneven Surface: 4 (Pt will be SBA/CGA for all aspects of functional mobility to be able to safely return home with spouse. ) 1 Step (curb) (QC): 4 (Pt will be SBA/CGA for all aspects of functional mobility to be able to safely return home with spouse. ) 4 Steps (QC): 4 (Pt will be SBA/CGA for all aspects of functional mobility to be able to safely return home with spouse. ) 12 Steps (QC): 4 (Pt will be SBA/CGA for all aspects of functional mobility to be able to safely return home with spouse. ) Picking up an Object (QC): 4 (Pt will be SBA/CGA for all aspects of functional mobility to be able to safely return home with spouse. ) Does the Pt use WC or Scooter?: Yes Wheel 50 feet with 2 turns (QC: 4 (Pt will be SBA/CGA for all aspects of functional mobility to be able to safely return home with spouse. ) Type: Manual Wheel 150 feet: 4 (Pt will be SBA/CGA for all aspects of functional mobility to be able to safely return home with spouse. ) Type: Manual PT Plan Problem List Problem List: Activity Tolerance, Functional Strength, Safety, Balance, Gait, Transfer, Bed Mobility, ROM Treatment/Plan Treatment Plan: Continue Plan of Care Treatment Plan: Bed Mobility, Concurrent Therapy, Education, Functional Activity Marlen, Functional Strength, Group Therapy, Gait, Safety, Therapeutic Exercise, Transfers Treatment Duration: Jun 08, 2023 Frequency: At least 5 of 7 days/Wk (IRF) Estimated Hrs Per Day: 1.5 hours per day Patient and/or Family Agrees t: Yes Safety Risks/Education Patient Education: Transfer Techniques, Correct Positioning, W/C Management, Disease Process, Safety Issues Teaching Recipient: Patient Teaching Methods: Discussion Response to Teaching: Verbalize Understanding Time Time In: 1410 Time Out: 1530 DATE: May 29, 2023 Total Billed Treatment Time: 80 Total Billed Treatment 1, FA x4 (65m) & WCH (15m) Co-treat w/OT for 60m ([id number]) TOPHER ANDRES PTA May 29, 2023 16:07
[2023-05-29] MEDS ORDERED: HOLD METFORMIN - RECEIVED CONTRAST 20 ML VIAL IV SCH (16:45)
[2023-05-29] MEDS ORDERED: MILK OF MAGNESIA 400 MG/5 ML 30 ML UDC PO PRN (16:45)
[2023-05-29] MEDS ORDERED: morphine INJ 4 MG/ML 1 ML (VIAL/SYRINGE) IV PRN (16:45)
[2023-05-29] MEDS ORDERED: ANTACID SUSP 30 ML UDC (MYLANTA) PO PRN (16:45)
[2023-05-29] MEDS ORDERED: ALPRAZolam 0.5 MG (XANAX) TAB PO PRN (16:45)
[2023-05-29] MEDS ORDERED: polyethylene glycoL POWDER 17 GM (MIRALAX) PACK PO PRN (16:45)
[2023-05-29] MEDS ORDERED: RT-ALBUTEROL/IPRATROPIUM 3 ML (DUONEB) VIAL INH PRN (16:45)
[2023-05-29] MEDS ORDERED: ONDANSETRON 4 MG (ZOFRAN) ORAL DISSOLVE TAB PO PRN (16:45)
[2023-05-29] MEDS ORDERED: diphenhydrAMINE 50 MG/ML INJ (BENADRYL) IVP PRN (16:45)
[2023-05-29] MEDS ORDERED: ONDANSETRON 4 MG/2 ML (SDV) Z0FRAN IV PRN (16:45)
[2023-05-29 19:27] VITALS: BP 126/69
[2023-05-29] MEDS: DOCUSATE SODIUM 100 MG (COLACE) CAP PO SCH (20:30)
[2023-05-29] MEDS: polyethylene glycoL POWDER 17 GM (MIRALAX) PACK PO SCH (20:31)
[2023-05-29] MEDS: SENNA W/DOCUSATE (SENOKOT S) TABLET PO SCH (20:31)
[2023-05-29] MEDS ORDERED: DOCUSATE SODIUM 100 MG (COLACE) CAP PO SCH (21:00)
[2023-05-29] MEDS ORDERED: SENNOSIDES 8.6 MG (SENOKOT) TAB PO SCH (21:00)
[2023-05-29] MEDS: ONDANSETRON 4 MG (ZOFRAN) ORAL DISSOLVE TAB PO PRN (22:20)
[2023-05-30] MEDS: ENOXAPARIN 100 MG/1 ML (LOVENOX) SYR SC SCH ×2 (00:44→12:47)
--- NOTE | 2023-05-30 05:38 | PM&R Progress Note ---
Subjective HPI/CC On Admission Date Seen by Provider: May 30, 2023 Time Seen by Provider: 12:00 Subjective/Events-last exam 05/30/2023: Patient having some difficulty Unable to really eat much Meds make her gag so we are crushing them Scopolamine patch will be placed Dr. Camejo spoke to her and told her she has stage IV cancer Urinary retention noted so we will replace catheter Review of Systems General: Fatigue, Malaise Objective Exam Vital Signs Vital Signs Date Time Temp Pulse Resp B/P (MAP) Pulse Ox O2 Delivery O2 Flow Rate FiO2 05/30/23 19:12 36.1 112 18 138/69 (92) 92 Room Air Capillary Refill : General Appearance: No Apparent Distress, WD/WN, Chronically ill HEENT: PERRL/EOMI, Normal ENT Inspection, Pharynx Normal Neck: Full Range of Motion, Normal Inspection, Non Tender, Supple, Carotid Bruit Respiratory: Chest Non Tender, Lungs Clear, Normal Breath Sounds, No Accessory Muscle Use, No Respiratory Distress Cardiovascular: Regular Rate, Rhythm, No Edema, No Gallop, No JVD, No Murmur, Normal Peripheral Pulses Gastrointestinal: Normal Bowel Sounds, No Organomegaly, No Pulsatile Mass, Non Tender, Soft Back: Normal Inspection, No CVA Tenderness, No Vertebral Tenderness Extremity: Normal Capillary Refill, Normal Inspection, Normal Range of Motion, Non Tender, No Calf Tenderness, No Pedal Edema Neurologic/Psychiatric: Alert, Oriented x3, Normal 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 FIM Transfers Therapy Code Descriptions/Definitions Functional [place] Measure: 0=Not Assessed/NA 4=Minimal Assistance 1=Total Assistance 5=Supervision or Setup 2=Maximal Assistance 6=Modified [place] 3=Moderate Assistance 7=Complete IndependenceSCALE: Activities may be completed with or without assistive devices. 0-Havffjgdqw-gynwjct completes the activity by him/herself with no assistance from a helper. 5-Set-up or Clean-up Assistance-helper sets up or cleans up; patient completes activity. [place] assists only prior to or following the activity. 4-Supervision or Touching Assistance-helper provides verbal cues and/or touching/steadying and/or contact guard assistance as patient completes activity. Assistance may be provided throughout the activity or intermittently. 3-Partial/Moderate Assistance-helper does LESS THAN HALF the effort. [place] l ifts, holds or supports trunk or limbs, but provides less than half the effort. 2-Substantial/Maximal Assistance-helper does MORE THAN HALF the effort. [place] lifts or holds trunk or limbs and provides more than half the effort. 8-Rwhldnkpg-dyodva does ALL the effort. Patient does none of the effort to complete the activity. Or, the assistance of 2 or more helpers is required for the patient to complete the activity. If activity was not attempted, code reason: 7-Patient Refused. 9-Not Applicable-not attempted and the patient did not perform the activity before the current illness, exacerbation or injury. 10-Not Attempted due to Environmental Limitations-(lack of equipment, weather restraints, etc.). 88-Not Attempted due to Medical Conditions or Safety Concerns. Roll Left to Right (QC): 3 (Min A ) Sit to Lying (QC): 2 Sit to Stand (QC): 2 Chair/Kbh-lu-Bqvdy Xfer(QC): 3 (Min A ) Car Transfer (QC): 88 Gait Training Does the Patient Walk?: Yes Walk 10 feet (QC): 3 (Min A ) Walk 50 ft with 2 Turns(QC): 88 Walk 150 ft (QC): 88 Walking 10ft/uneven surface-QC: 88 Gait Assistive Device: Walker Christiano Wheelchair Training Does the Pt Use a Wheelchair?: Yes Wheel 50 ft with 2 turns (QC): 2 Wheel 150 ft (QC): 3 (Min A ) Type of Wheelchair: Manual Stair Training 1 Step (curb) (QC): 88 4 Steps (QC): 88 12 Steps (QC): 88 Balance Picking up an Object (QC): 3 (Min A ) ADL-Treatment Eating (QC): 5 (Set up) Oral Hygiene (QC): 5 (Set up to open toothpaste, set up water and cup.) Shower/Bathe Self (QC): 2 (Max assist overall. Pt. required assistance to wash under left UE, under pannus, front and rear guy area, and bilateral feet. ) Upper Body Dressing (QC): 10 (Pt. did not have fresh clothing available, so [facility] gown.) Lower Body Dressing (QC): 2 On/Off Footwear (QC): 2 (Max assist to doff/don slipper socks.) Toileting Hygiene (QC): 2 (Pt. requires min/mod assist in stance while OT cleanses rear guy area after BM.) Assessment/Plan Assessment and Plan Assess & Plan/Chief Complaint Acute neurological deficit of the L upper extremity-MRI revealed showering of emboli-failed OAC placed on Lovenox and consulted Cardiology and reviewed ECHO CVA CT and CTA have not shown evidence of hemorrhage or acute ischemia MRI showed multifocal areas of acute/subacute ischemia involving the bilateral cerebral and cerebellar hemispheres Due to multiple involved areas, embolic disease suspected Weakness has not improved Continue atorvastatin and aspirin Eliquis switched to 90mg of lovenox BID for anticoagulation Echo and carotid u/s pending. Attempting to identify source of embolism Moved to ARU-05/29/23 PT/OT Metastatic endometrial cancer Underwent hysterectomy 03/2021 Dr Qiu recent scans revealed recurrence with metastasis confirmed on peritoneal mass IR CT guided biopsy patient has plans to follow with Dr Oscar-she will see her ARU 05/30/23 Hx of DVT on anticoagulation of Eliquis and DC placed on Lovenox since failed with emboli causing CVA Elevated D dimer Elevated troponin Recently treated for LE DVT and placed on anticoagulation H/O Breast cancer Nausea and vomiting place scopolamine patch on 05/30/2023 Urinary retention requiring Mosquera catheter to be reinserted 05/30/2023 Diet- regular DVT ppx- anticoagulated with lovenox Code- DNR 05/30/2023: Urinary catheter Scopolamine patch Monitor closely (1) Embolic stroke SHAMAR DAHL DO May 30, 2023 05:38
--- NOTE | 2023-05-30 05:38 | Individualized Plan of Care ---
Individualized Plan of Care Rehab Nursing IPOC Order Admission Date May 29, 2023 at 13:15 Current Orders Orders Admission Order(Inpt,Obs,Sdc) (05/29/23 12:17) Vital Signs: Per Unit Policy ( 08,16,00 (05/29/23 12:17) Rosendo Grijalva ,21 (05/29/23 12:17) Sequential Compression Device [id number] (05/29/23 12:17) Vp Data-Inpt Rehab Con (05/29/23 12:17) Rehab Nursing Orders-Ipoc (05/29/23 12:17) Physical Therapy Rehab Orders (05/29/23 12:17) Occupational Therapy Rehab Ord (05/29/23 12:17) Speech Therapy Rehab Orders (05/29/23 12:17) Cbc With Automated Diff (05/30/23 06:00) Comprehensive Metabolic Panel (05/30/23 06:00) Precautions (Aru) (05/29/23 12:17) Weekly Weight WEEK (05/29/23 12:17) Rehab-Intensity Of Therapy (05/29/23 12:17) Initiate Admission Nursing Pro .admission (05/29/23 12:17) Alprazolam Tablet (Xanax Tablet) (05/29/23 12:30) Calcium Carbonate Chew Tablet (Antacid C (05/29/23 12:30) Diphenhydramine Tablet (Benadryl Tablet) (05/29/23 12:30) Docusate Sodium Capsule (Colace Capsule) (05/29/23 21:00) Docusate Sodium Capsule (Colace Capsule) (05/29/23 12:30) Bisacodyl Suppository (Dulcolax Supposit (05/29/23 12:30) Lactulose Oral Solution (Enulose Oral So (05/29/23 12:30) Na Phos/Na Biphos Enema (Fleet Enema Solis (05/29/23 12:30) Guaifenesin/Codeine Syrup (Robitussin Ac (05/29/23 12:30) Loperamide Tablet (Imodium Tablet) (05/29/23 12:30) Melatonin Tablet (Melatonin Tablet) (05/29/23 12:30) Polyethylene Glycol Powder Pkt (Miralax (05/29/23 21:00) Ondansetron Oral Dissolve Tab (Zofran (05/29/23 12:30) Senna S Tablet (Senokot S Tablet) (05/29/23 21:00) Acetaminophen Tablet/Caplet (Tylenol T (05/29/23 12:30) Initiate Admission Nursing Pro .admission (05/29/23 12:17) Admission Arrival Bed Request (05/29/23 13:30) Patient Visit (05/29/23 ) Pt Eval Moderate Complexity (05/29/23 ) Patient Visit (05/29/23 ) Functional Activities, Ea 15 (05/29/23 ) Wheelchair Mgmt/Propulsn 15min (05/29/23 ) Code/Resuscitation (05/29/23 16:45) Incentive Spirometry (Nursing) Q2H (05/29/23 16:45) Vte Contraindication (05/29/23 16:45) General/Regular (05/29/23 Dinner) Alprazolam Tablet (Xanax Tablet) (05/29/23 16:45) Albuterol/Ipra Inhalation Soln (Duoneb I (05/29/23 16:45) Atorvastatin Tablet (Lipitor Tablet) (05/30/23 09:00) Diphenhydramine Injection (Benadryl Inje (05/29/23 16:45) Docusate Sodium Capsule (Colace Capsule) (05/29/23 21:00) Bisacodyl Suppository (Dulcolax Supposit (05/29/23 16:45) Lactulose Oral Solution (Enulose Oral So (05/29/23 16:45) Melatonin Tablet (Melatonin Tablet) (05/29/23 16:45) Magnesium Hydroxide Oral Susp (Mom Oral (05/29/23 16:45) Polyethylene Glycol Powder Pkt (Miralax (05/29/23 16:45) Morphine Injection (Morphine Injection (05/29/23 16:45) Antacid Suspension (Mylanta Suspension (05/29/23 16:45) Received Contrast (Hold Metformin- Contr (05/29/23 16:45) Sennosides Tablet (Senokot Tablet) (05/29/23 21:00) Calcium Carbonate Chew Tablet (Antacid C (05/29/23 16:45) Acetaminophen Tablet/Caplet (Tylenol T (05/29/23 16:45) Ondansetron Injection (Zofran Injectio (05/29/23 16:45) Ondansetron Oral Dissolve Tab (Zofran (05/29/23 16:45) Oxycodone Immediate Rel Tablet (Oxyir Ta (05/29/23 16:45) Consult Cardiology (05/29/23 16:45) Consult Oncology/Hematology (05/29/23 16:45) Incentive Spirometry Initial (05/29/23 16:45) Mat Initiate Protocol (05/29/23 16:45) Svn Small Volume Nebulizer (05/29/23 16:45) Incentive Spirometry (Nursing) Q2H (05/29/23 16:45) Aspirin Enteric Coated Tablet (Ecotrin T (05/30/23 09:00) Enoxaparin Injection (Lovenox Injection) (05/30/23 01:00) Catheter(Urinary) Discontinue UD (05/30/23 06:00) Catheter(Urinary) Insert & Ass 03,15 (05/30/23 12:39) Scopolamine Patch (Transderm-Scop Patch) (05/30/23 13:00) Patch Removal (Patch Removal) (06/02/23 13:00) Patient Visit (05/30/23 ) Functional Activities, Ea 15 (05/30/23 ) Exercise Therap, Ea 15 Min (05/30/23 ) Enlive Variety (05/30/23 13:24) Rehab Nursing Orders: Ongoing Assess. of Cognitive Status, Ongoing Assess. of Function Status, Bladder Management, Bladder Scan, Bladder Training, Bowel Management, Bowel Training, Disease Management & Educaiton, DVT Prophylaxis, Fall Prevention, Fluid/Electrolyte/Nutrition Mgmt, Infection Prevention, Medication Management & Education, Management of Risks & Complications, Management of Skin Intergrity, Nutrition Management, Pain Management, Patient/Family Support, Safety Management, Swallow Precautions, Wound Management Intensity of Therapy to be met Patient to be seen: Min.3h per day/5 of 7d PT IPOC Problem List: Activity Tolerance, Functional Strength, Safety, Balance, Gait, Transfer, Bed Mobility, ROM Treatment Plan: Continue Plan of Care Bed Mobility, Concurrent Therapy, Education, Functional Activity Marlen, Functional Strength, Group Therapy, Gait, Safety, Therapeutic Exercise, Transfers Treatment Duration: Jun 08, 2023 Frequency: At least 5 of 7 days/Wk (IRF) Estimated Hrs Per Day: 1.5 hours per day OT IPOC Problems: Decreased Activ Tolerance, Decreased UE Strength, Dependent Transfers, Impaired Bed Mobility, Impaired Coordination, Impaired Funct Balance, Impaired I ADL's, Impaired Self-Care Skills, Restricted Funct UE ROM OT Treatment, Training and Edu: Yes Plan of Care: ADL Retraining, Functional Mobility, UE Funct Exercise/Act Treatment Duration: Jun 26, 2023 Frequency: At least 5 of 7 days/Wk (IRF) Estimated Hrs Per Day: 1.[address] IPOC Speech Therapy Treatment Plan: Discontinue ST Treatment Duration: May 30, 2023 Frequency: Modified Program (IRF) Estimated Hrs Per Day: Other Vp Data/Case Mgmt Vp Data/Case Managemen: Discharge Planning Dietitian/Net Maker Dietitian/Net Maker to monitor nutritional status and make changes and/or recommendations as needed and work with speech pathology on dietary upgrades as the occur. 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 which she was on for right acute DVT require close monitoring cardiology follow-up while maintaining Lovenox and managing urinary retention and refractory nausea and vomiting with stage IV metastatic endometrial cancer Medical Issues: Bowel/Bladder Function, DVT Prophylaxis, Falls Precautions, Fluid/Electrolyte/Nutrition Balance, Infection Protection, Pain Management Brief Synthesis of Preadmission Screen, Post-Admission Evaluation, and Therapy Evaluations: PT and OT will focus on regaining function with use of aggressive therapy along with use of assistive devices in order to regain enough function to return back to independent living Medical Prognosis: Fair Anticipated Length of Stay: 10 days SHAMAR DAHL DO May 30, 2023 05:38
[2023-05-30 06:02] LABS: BASOPHILS # (AUTO) 0.1 10^3/uL (0.0-0.1); BASOPHILS % (AUTO) 1 % (0-10); EOSINOPHILS # (AUTO) 0.1 10^3/uL (0.0-0.3); EOSINOPHILS % (AUTO) 1 % (0-10); HEMATOCRIT 32 % (35-52); HEMOGLOBIN 10.4 g/dL (11.5-16.0); LYMPHOCYTES # (AUTO) 1.1 10^3/uL (1.0-4.0); LYMPHOCYTES % (AUTO) 13 % (12-44); MEAN CORPUSCULAR HEMOGLOBIN 29 pg (25-34); MEAN CORPUSCULAR HGB CONC 33 g/dL (32-36); MEAN CORPUSCULAR VOLUME 89 fL (80-99); MEAN PLATELET VOLUME 9.2 fL (9.0-12.2); MONOCYTES # (AUTO) 0.5 10^3/uL (0.0-1.0); MONOCYTES % (AUTO) 6 % (0-12); NEUTROPHILS # (AUTO) 6.6 10^3/uL (1.8-7.8); NEUTROPHILS % (AUTO) 78 % (42-75); PLATELET COUNT 260 10^3/uL (130-400); WHITE BLOOD COUNT 8.4 10^3/uL (4.3-11.0)
[2023-05-30 06:21] LABS: ALBUMIN 3.8 GM/DL (3.2-4.5); BILIRUBIN,TOTAL 0.6 MG/DL (0.1-1.0); CALCIUM 9.5 MG/DL (8.5-10.1); CREATININE SERUM 1.06 MG/DL (0.60-1.30); POTASSIUM 3.6 MMOL/L (3.6-5.0); TOTAL PROTEIN 6.9 GM/DL (6.4-8.2)
--- NOTE | 2023-05-30 07:31 | Occupational Ther Daily Note ---
OT Current Status-Daily Note Subjective Pt alert, lying in bed. Pt agrees to therapy. No c/o pain. Mental Status/Objective Patient Orientation: Person, Place, Time, Situation Attachments: IV ADL-Treatment Pt agrees to get dressed and complete sponge bath. Mod A for supine to EOB. Min A for sit to stand then CGA to ambulate using hemiwalker from EOB to recliner. Assist to open packages, pt utilized fork to cut food with R hand. Pt requires assist to cleanse R side and lift L UE. Steadying assist in standing to cleanse guy area and assist to cleanse buttocks. Mod A for UBD. Max A for LBD. Dependent for footwear. After session, pt sitting in recliner with legs elevated, call light/phone in reach. All needs met in room. Therapy Code Descriptions/Definitions Functional [place] Measure: 0=Not Assessed/NA 4=Minimal Assistance 1=Total Assistance 5=Supervision or Setup 2=Maximal Assistance 6=Modified [place] 3=Moderate Assistance 7=Complete IndependenceSCALE: Activities may be completed with or without assistive devices. 7-Ffvgbcsajf-sketztz completes the activity by him/herself with no assistance from a helper. 5-Set-up or Clean-up Assistance-helper sets up or cleans up; patient completes activity. [place] assists only prior to or following the activity. 4-Supervision or Touching Assistance-helper provides verbal cues and/or touching/steadying and/or contact guard assistance as patient completes activity. Assistance may be provided throughout the activity or intermittently. 3-Partial/Moderate Assistance-helper does LESS THAN HALF the effort. [place] lifts, holds or supports trunk or limbs, but provides less than half the effort. 2-Substantial/Maximal Assistance-helper does MORE THAN HALF the effort. [place] lifts or holds trunk or limbs and provides more than half the effort. 6-Taexzhskc-fphems does ALL the effort. Patient does none of the effort to complete the activity. Or, the assistance of 2 or more helpers is required for the patient to complete the activity. If activity was not attempted, code reason: 7-Patient Refused. 9-Not Applicable-not attempted and the patient did not perform the activity before the current illness, exacerbation or injury. 10-Not Attempted due to Environmental Limitations-(lack of equipment, weather restraints, etc.). 88-Not Attempted due to Medical Conditions or Safety Concerns. Eating (QC): 5 Upper Body Dressing (QC): 3 (mod A) Lower Body Dressing (QC): 2 On/Off Footwear: 2 OT Short Term Goals Short Term Goals Time Frame: Jun 12, 2023 Eatin Oral hygiene: 5 Toileting hygiene: 3 (Min assist with AE) Shower/bathe self: 3 (Min/mod assist with AE) Upper body dressin Lower body dressin (Min assist with AE) Putting on/taking off footwear: 3 (Min assist with AE) OT Loss Prevention Specialist Goals [facility] Goals Time Frame: Jun 26, 2023 Acute change in mental status: 0 Inattention: 0 Disorganized thinkin Altered level of consciousness: 0 Eating (QC): 6 Oral Hygiene (QC): 6 Toileting Hygiene (QC): 6 Shower/Bathe Self (QC): 5 Upper Body Dressing (QC): 6 Lower Body Dressing (QC): 5 (With AE as needed) On/Off Footwear (QC): 6 (With AE as needed) Additional Goals: 1-Demonstrate ADL Tasks, 2-Verbalize Understanding, 3- ImproveStrength/Marlen 1=Demonstrate adherence to instructed precautions during ADL tasks. 2=Patient will verbalize/demonstrate understanding of assistive devices/modifications for ADL. 3=Patient will improve strength/tolerance for activity to enable patient to perform ADL's. OT Education/Plan Problem List/Assessment Assessment: Decreased Activ Tolerance, Decreased UE Strength, Impaired Bed Mobility, Impaired Funct Balance, Impaired Self-Care Skills, Restricted Funct UE ROM Discharge Recommendations Plan/Recommendations: Continue POC Treatment Plan/Plan of Care Patient would benefit from OT for education, treatment and training to promote independence in ADL's, mobility, safety and/or upper extremity function for ADL's. Plan of Care: ADL Retraining, Functional Mobility, UE Funct Exercise/Act Treatment Duration: Jun 26, 2023 Frequency: At least 5 of 7 days/Wk (IRF) Estimated Hrs Per Day: 1.5 hours per day Agreement: Yes Rehab Potential: Good Time Start Time: 07:00 Stop Time: 08:00 DATE: May 30, 2023 Total Time Billed (hr/min): 60 Billed Treatment Time 1 visit-ADL 4 (60 min) NAJMA ALFONSO May 30, 2023 07:31
[2023-05-30 08:00] VITALS: BP 144/80
[2023-05-30] MEDS: ASPIRIN E.C. 81 MG (ECOTRIN) TAB PO SCH (08:06)
[2023-05-30] MEDS: polyethylene glycoL POWDER 17 GM (MIRALAX) PACK PO SCH ×2 (08:06→20:30)
[2023-05-30] MEDS: DOCUSATE SODIUM 100 MG (COLACE) CAP PO SCH ×2 (08:06→20:34)
[2023-05-30] MEDS: SENNA W/DOCUSATE (SENOKOT S) TABLET PO SCH ×2 (08:07→20:35)
--- NOTE | 2023-05-30 10:29 | Physical Therapy Daily Note ---
PT Daily Note-Current Subjective Pt in recliner and willing for therapy. pt reports no pain during therapy. pt was very exhausted this day requiring Multiple rest breaks in between each exercise. pt did have a visit with cancer dr during session and received some bad news. therapist did preform therapeutic listening and provided reassurance to pt. pt was left in room in recliner with feet up, call light and all needs met. Pain Section J - Health Conditions 1. Rarely or not at all 2. Occasionally 3. Frequently 4. Almost constantly 8. Unable to answer Pain Effect on Sleep: 1 Pain Interference with Therapy: 1 Pain Interference w/Day-to-Day: 1 Mental Status Patient Orientation: Person, Place, Time, Situation Transfers SCALE: Activities may be completed with or without assistive devices. 4-Vlonarkrhh-fjpkbha completes the activity by him/herself with no assistance from a helper. 5-Set-up or Clean-up Assistance-helper sets up or cleans up; patient completes activity. [place] assists only prior to or following the activity. 4-Supervision or Touching Assistance-helper provides verbal cues and/or touching/steadying and/or contact guard assistance as patient completes activity. Assistance may be provided throughout the activity or intermittently. 3-Partial/Moderate Assistance-helper does LESS THAN HALF the effort. [place] li fts, holds or supports trunk or limbs, but provides less than half the effort. 2-Substantial/Maximal Assistance-helper does MORE THAN HALF the effort. [place] lifts or holds trunk or limbs and provides more than half the effort. 6-Gstllaeld-lmasxy does ALL the effort. Patient does none of the effort to complete the activity. Or, the assistance of 2 or more helpers is required for the patient to complete the activity. If activity was not attempted, code reason: 7-Patient Refused. 9-Not Applicable-not attempted and the patient did not perform the activity before the current illness, exacerbation or injury. 10-Not Attempted due to Environmental Limitations-(lack of equipment, weather restraints, etc.). 88-Not Attempted due to Medical Conditions or Safety Concerns. Weight Bearing Right Lower Extremity: Right Full Weight Bearing Left Lower Extremity: Left Full Weight Bearing Exercises Seated Therapy Exercises: Ankle pumps, Sit to stand, Long arc quads, Chair press-ups, Hip flexion, Hamstring Curls, Reaching activity, Glut set Treatments pt is able to preform sitting with and without gravity eliminated ther-ex for 3 sets of [address] pt required many many rest breaks after each exercise secodanry to fatigue. pt was able to preform 4 sit to stand this day with MOD A and slightly blocking B Knees for added support when standing. Assessment Current Status: Fair Progress (pt working through extra fatigue this day vs previous day. ) PT Halfway Goals Halfway Goals PT Halfway Goals Time Frame: Jun 08, 2023 Roll Left & Right (QC): 4 (Pt will be SBA/CGA for all aspects of functional mobility to be able to safely return home with spouse. ) Sit to Lying (QC): 4 (Pt will be SBA/CGA for all aspects of functional mobility to be able to safely return home with spouse. ) Lying-Sitting on Side/Bed(QC): 4 (Pt will be SBA/CGA for all aspects of functional mobility to be able to safely return home with spouse. ) Sit to Stand (QC): 4 (Pt will be SBA/CGA for all aspects of functional mobility to be able to safely return home with spouse. ) Chair/Xuc-eo-Fwtjj Xfer(QC): 4 (Pt will be SBA/CGA for all aspects of functional mobility to be able to safely return home with spouse. ) Toilet Transfer (QC): 4 (Pt will be SBA/CGA for all aspects of functional mobility to be able to safely return home with spouse. ) Car Transfer (QC): 4 (Pt will be SBA/CGA for all aspects of functional mobility to be able to safely return home with spouse. ) Does the Patient Walk: Yes Walk 10 feet (QC): 4 (Pt will be SBA/CGA for all aspects of functional mobility to be able to safely return home with spouse. ) Walk 50ft with 2 Turns (QC): 4 (Pt will be SBA/CGA for all aspects of functional mobility to be able to safely return home with spouse. ) Walk 150 ft (QC): 4 (Pt will be SBA/CGA for all aspects of functional mobility to be able to safely return home with spouse. ) Walking 10ft on Uneven Surface: 4 (Pt will be SBA/CGA for all aspects of functional mobility to be able to safely return home with spouse. ) 1 Step (curb) (QC): 4 (Pt will be SBA/CGA for all aspects of functional mobility to be able to safely return home with spouse. ) 4 Steps (QC): 4 (Pt will be SBA/CGA for all aspects of functional mobility to be able to safely return home with spouse. ) 12 Steps (QC): 4 (Pt will be SBA/CGA for all aspects of functional mobility to be able to safely return home with spouse. ) Picking up an Object (QC): 4 (Pt will be SBA/CGA for all aspects of functional mobility to be able to safely return home with spouse. ) Does the Pt use WC or Scooter?: Yes Wheel 50 feet with 2 turns (QC: 4 (Pt will be SBA/CGA for all aspects of functional mobility to be able to safely return home with spouse. ) Type: Manual Wheel 150 feet: 4 (Pt will be SBA/CGA for all aspects of functional mobility to be able to safely return home with spouse. ) Type: Manual PT Plan Treatment/Plan Treatment Plan: Continue Plan of Care Treatment Plan: Bed Mobility, Concurrent Therapy, Education, Functional Activity Marlen, Functional Strength, Group Therapy, Gait, Safety, Therapeutic Exercise, Transfers Treatment Duration: Jun 08, 2023 Frequency: At least 5 of 7 days/Wk (IRF) Estimated Hrs Per Day: 1.5 hours per day Patient and/or Family Agrees t: Yes Time Time In: 0900 Time Out: 1030 DATE: May 30, 2023 Total Billed Treatment Time: 90 Total Billed Treatment 1 FA x 3 EX x2 Eva Acosta NUTRITION EDUCATOR May 30, 2023 10:29
[2023-05-30] MEDS: ONDANSETRON 4 MG (ZOFRAN) ORAL DISSOLVE TAB PO PRN (12:45)
[2023-05-30] MEDS ORDERED: SCOPOLAMINE 1.5 MG (TRANSDERM-SCOP) PATCH TD NR (13:00)
--- NOTE | 2023-05-30 13:28 | Occupational Ther Daily Note ---
OT Current Status-Daily Note Subjective Pt alert, lying in bed. Pt c/o fatigue and nausea, nrsg aware and brought meds for nausea prior to session. Pt agrees to therapy being completed at bed level. Mental Status/Objective Patient Orientation: Person, Place, Time, Situation Attachments: IV ADL-Treatment Therapy Code Descriptions/Definitions Functional [place] Measure: 0=Not Assessed/NA 4=Minimal Assistance 1=Total Assistance 5=Supervision or Setup 2=Maximal Assistance 6=Modified [place] 3=Moderate Assistance 7=Complete IndependenceSCALE: Activities may be completed with or without assistive devices. 0-Fiojawriue-ztneqnq completes the activity by him/herself with no assistance from a helper. 5-Set-up or Clean-up Assistance-helper sets up or cleans up; patient completes activity. [place] assists only prior to or following the activity. 4-Supervision or Touching Assistance-helper provides verbal cues and/or touching/steadying and/or contact guard assistance as patient completes activity. Assistance may be provided throughout the activity or intermittently. 3-Partial/Moderate Assistance-helper does LESS THAN HALF the effort. [place] lifts, holds or supports trunk or limbs, but provides less than half the effort. 2-Substantial/Maximal Assistance-helper does MORE THAN HALF the effort. [place] lifts or holds trunk or limbs and provides more than half the effort. 4-Dfvxtkdai-iqtsnt does ALL the effort. Patient does none of the effort to complete the activity. Or, the assistance of 2 or more helpers is required for the patient to complete the activity. If activity was not attempted, code reason: 7-Patient Refused. 9-Not Applicable-not attempted and the patient did not perform the activity before the current illness, exacerbation or injury. 10-Not Attempted due to Environmental Limitations-(lack of equipment, weather restraints, etc.). 88-Not Attempted due to Medical Conditions or Safety Concerns. Other Treatment Pt demonstrates active movement in LUE with shldr elevation/protraction, elbow flexion starting at 90*, elbow extension, shldr add/abd, forearm pronation with positioning. Trace muscle movement with sports equipment racker. Wt bearing manually provided while pt in supine to L UE. Pt given light resistance therapy sponge for use in room. After therapy, pt lying in bed with call light/phone in reach. present in room. OT Short Term Goals Short Term Goals Time Frame: Jun 12, 2023 Eatin Oral hygiene: 5 Toileting hygiene: 3 (Min assist with AE) Shower/bathe self: 3 (Min/mod assist with AE) Upper body dressin Lower body dressin (Min assist with AE) Putting on/taking off footwear: 3 (Min assist with AE) OT [facility] Goals Restaurant Manager Goals Time Frame: Jun 26, 2023 Acute change in mental status: 0 Inattention: 0 Disorganized thinkin Altered level of consciousness: 0 Eating (QC): 6 Oral Hygiene (QC): 6 Toileting Hygiene (QC): 6 Shower/Bathe Self (QC): 5 Upper Body Dressing (QC): 6 Lower Body Dressing (QC): 5 (With AE as needed) On/Off Footwear (QC): 6 (With AE as needed) Additional Goals: 1-Demonstrate ADL Tasks, 2-Verbalize Understanding, 3- ImproveStrength/Marlen 1=Demonstrate adherence to instructed precautions during ADL tasks. 2=Patient will verbalize/demonstrate understanding of assistive devices/modifications for ADL. 3=Patient will improve strength/tolerance for activity to enable patient to perform ADL's. OT Education/Plan Problem List/Assessment Assessment: Decreased Activ Tolerance, Decreased UE Strength, Impaired Self- Care Skills Discharge Recommendations Plan/Recommendations: Continue POC Treatment Plan/Plan of Care Patient would benefit from OT for education, treatment and training to promote independence in ADL's, mobility, safety and/or upper extremity function for A DL's. Plan of Care: ADL Retraining, Functional Mobility, UE Funct Exercise/Act Treatment Duration: Jun 26, 2023 Frequency: At least 5 of 7 days/Wk (IRF) Estimated Hrs Per Day: 1.5 hours per day Agreement: Yes Rehab Potential: Good Time Start Time: 13:00 Stop Time: 13:30 DATE: May 30, 2023 Total Time Billed (hr/min): 30 Billed Treatment Time 1 visit-NM 2 (30 min) NAJMA ALFONSO May 30, 2023 13:28
--- NOTE | 2023-05-30 14:17 | Oncology Consultation ---
Visit Information Visit Information Date of Admission May 29, 2023 at 13:15 Attending Physician Senait Huynh DO Admitting Physician Admitting Physician: Senait Huynh DO Attending Physician: Senait Huynh DO Chief Complaint Stroke and endometrial carcinoma Interval History Ms. Goldberg is a 72 year old white female know to me in the past for treatment of breast cancer, who presented to ER for left arm and right leg weakness. MRI of the head showed embolic process, no malignancy. Pt was hospitalized a week ago for DVT and discharged home on eliquis. She is faithfully taking her eliquis at home and present to ER a week later with embolic stroke. She is now in rehab. She had CT scan 05/14/2023 showed large liver lesion and peritoneal lesions as below. Biopsy showed endometrial carcinoma. h/o hysterectomy. CT of chest abd 05-14-23. IMPRESSION: A 1 cm mass in the medial aspect of the right lower lobe concerning for neoplasm. Further evaluation with PET scan should be considered. Additionally, there is a 4 mm nodule in the right upper lobe, likely granuloma. Moderate amount of abdominal ascites. Large mass in the liver concerning for neoplasm. There are additional hepatic cysts. Cholelithiasis. No other acute abnormality in the chest, abdomen, or pelvis. MRI of the head 05/28/23 IMPRESSION: 1. Multifocal areas of acute/subacute ischemia involving the bilateral cerebral and cerebellar hemispheres, the largest involvement in the precentral gyrus of the right frontal lobe. This likely corresponds to the patient's symptoms of left arm numbness and weakness. No associated hemorrhage or mass effect. Given the involvement in multiple vascular territories, embolic phenomenon is suspected. Recommend continued close follow-up. 2. Additional chronic microvascular disease in the periventricular and subcortical white matter. I consulted the patient on: 05/30/23 14:11 Time Seen by Provider: 14:00 Review of Systems Constitutional: see HPI Health Status Allergies Coded Allergies: letrozole (Verified Allergy, Unknown, RASH, 05/14/23) Uncoded Allergies: TAPE (Allergy, Mild, BLISTERS, 05/27/09) Home Medications Aspirin (Aspirin EC) 81 Mg Tablet., 81 MG PO DAILY for 30 Days Prescribed by: SENAIT HUYNH on 05/29/23 1158 Atorvastatin Calcium (Atorvastatin Calcium) 80 Mg Tablet, 80 MG PO DAILY, #30 Prescribed by: SENAIT HUYNH on 05/29/23 1158 Cetirizine HCl (Zyrtec) 10 Mg Tablet, 10 MG PO DAILY, (Reported) Enoxaparin Sodium (Enoxaparin Sodium) 100 Mg/Ml Syringe, 90 MG SC Q12H for 30 D ays Prescribed by: SENAIT HUYNH on 05/29/23 1158 Losartan Potassium (Losartan Potassium) 100 Mg Tablet, 100 MG PO HS, (Reported) Ondansetron (Ondansetron Odt) 8 Mg Tab.rapdis, 8 MG SL Q4H PRN for NAUSEA/VOMITING, #12 Prescribed by: SENAIT HUYNH on 05/17/23 1155 Pantoprazole Sodium (Pantoprazole Sodium) 40 Mg Tablet.dr, 40 MG PO DAILY, (Reported) Potassium Chloride (Potassium Chloride) 10 Meq Tab.er.prt, 10 MEQ PO BID, (Reported) RAT-L[place]pb-[place] Hx Patient Social History Marrital Status: Employed/Student: retired Smoking Status: Never a Smoker 2nd Hand Smoke Exposure: Yes Recent Hopitalizations: No Alcohol Use?: No Immunizations Up To Date Tetanus Booster (TDap): Less than 5yrs Date of Influenza Vaccine: Aug 30, 2020 Family Medical History Significant Family History: No Pertinent Family Hx Physical Exam Vital Signs Vital Signs - First Documented 05/29/23 13:15 Temp 35.7 Pulse 109 Resp 18 B/P (MAP) 162/78 (106) Pulse Ox 96 O2 Delivery Room Air Capillary Refill : Height, Weight, BMI Height: 5'4" Weight: 185lbs. oz. 83.543034hy; 33.32 BMI Method:Stated General Appearance: No Apparent Distress HEENT: PERRL/EOMI Neck: Supple Respiratory: No Accessory Muscle Use, No Respiratory Distress Cardiovascular: Regular Rate, Rhythm Gastrointestinal: Non Tender, Soft Neurologic/Psychiatric: Alert, Oriented x3, Abnormal Gait, Motor Weakness Data Review Labs Laboratory Tests 05/30/23 05:52: Red Blood Count 3.57L, Hemoglobin 10.4L, Hematocrit 32L, Neutrophils (%) (Auto) 78H, Aspartate Amino Transf (AST/SGOT) 74H Impression & Plan Impression & Plan pathology report of soft tissue, right abd needle biopsy: Poorly differentiated carcinoma, consistent with endometrioid endometrial adenocarcinoma. IMP: 1. Poorly endometrial adenocarcinoma with mod ascites and peritoneal carcinomatosis as well as large liver lesion, clinical stage IV. 2. 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 Developed while on eliquis 5mg bid. 3. Remote h/o breast cancer. 4. DVT 04/2023 on eliquis 5mg bid Rec: 1. Pt will need to be on warfarin and target INR around 3 when discharge home. She also need to be on ASA 81mg daily. 2. I will arrange NGS test for her tumor sample to see if she has any actionable bio-markers. I did mention to patient and her of the standard treatment is chemotherapy. I will see her in cancer center as out-pt in 2 weeks for cancer treatment. 3. Check CA 125. 4. Dr Huynh to decide the hospital course and discharge plan. GUANAKITO WHITESIDE MD May 30, 2023 14:17
--- NOTE | 2023-05-30 14:45 | Speech Therapy Progress Note ---
Therapy Progress Note Speech pathology received a cognitive linguistic evaluation consult and the patient was discussed with the ARU team of therapists. At this time, skilled speech pathology services are not warranted. ST to sign off. LAWSON SOLIS May 30, 2023 14:45
[2023-05-30 14:58] VITALS: BP 144/80
[2023-05-30 19:12] VITALS: BP 138/69
[2023-05-30 20:04] VITALS: BP 135/73
[2023-05-31] MEDS: ENOXAPARIN 100 MG/1 ML (LOVENOX) SYR SC SCH ×2 (00:35→13:52)
--- NOTE | 2023-05-31 06:00 | PM&R Progress Note ---
Subjective HPI/CC On Admission Date Seen by Provider: May 31, 2023 Time Seen by Provider: 12:00 Subjective/Events-last exam 05/31/2023: Having difficulty with meds Scop path in place so will minimize meds Lopressor started for tachycardia 05/30/2023: Patient having some difficulty Unable to really eat much Meds make her gag so we are crushing them Scopolamine patch will be placed Dr. Camejo spoke to her and told her she has stage IV cancer Urinary retention noted so we will replace catheter Review of Systems General: Fatigue, Malaise Gastrointestinal: Nausea, Vomiting Objective Exam Vital Signs Vital Signs Date Time Temp Pulse Resp B/P (MAP) Pulse Ox O2 Delivery O2 Flow Rate FiO2 05/31/23 19:45 36.4 102 18 137/66 (89) 92 Room Air Capillary Refill : General Appearance: No Apparent Distress, WD/WN, Chronically ill HEENT: PERRL/EOMI, Normal ENT Inspection, Pharynx Normal Neck: Full Range of Motion, Normal Inspection, Non Tender, Supple, Carotid Bruit Respiratory: Chest Non Tender, Lungs Clear, Normal Breath Sounds, No Accessory Muscle Use, No Respiratory Distress Cardiovascular: Regular Rate, Rhythm, No Edema, No Gallop, No JVD, No Murmur, Normal Peripheral Pulses Gastrointestinal: Normal Bowel Sounds, No Organomegaly, No Pulsatile Mass, Non Tender, Soft Back: Normal Inspection, No CVA Tenderness, No Vertebral Tenderness Extremity: Normal Capillary Refill, Normal Inspection, Normal Range of Motion, Non Tender, No Calf Tenderness, No Pedal Edema Neurologic/Psychiatric: Alert, Oriented x3, Normal 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 FIM Transfers Therapy Code Descriptions/Definitions Functional [place] Measure: 0=Not Assessed/NA 4=Minimal Assistance 1=Total Assistance 5=Supervision or Setup 2=Maximal Assistance 6=Modified [place] 3=Moderate Assistance 7=Complete IndependenceSCALE: Activities may be completed with or without assistive devices. 9-Trwtbbzjrm-aglxtlt completes the activity by him/herself with no assistance from a helper. 5-Set-up or Clean-up Assistance-helper sets up or cleans up; patient completes activity. [place] assists only prior to or following the activity. 4-Supervision or Touching Assistance-helper provides verbal cues and/or touching/steadying and/or contact guard assistance as patient completes activ ity. Assistance may be provided throughout the activity or intermittently. 3-Partial/Moderate Assistance-helper does LESS THAN HALF the effort. Fine lifts, holds or supports trunk or limbs, but provides less than half the effort. 2-Substantial/Maximal Assistance-helper does MORE THAN HALF the effort. Fine lifts or holds trunk or limbs and provides more than half the effort. 7-Autoczcis-eisdas does ALL the effort. Patient does none of the effort to complete the activity. Or, the assistance of 2 or more helpers is required for the patient to complete the activity. If activity was not attempted, code reason: 7-Patient Refused. 9-Not Applicable-not attempted and the patient did not perform the activity before the current illness, exacerbation or injury. 10-Not Attempted due to Environmental Limitations-(lack of equipment, weather restraints, etc.). 88-Not Attempted due to Medical Conditions or Safety Concerns. Roll Left to Right (QC): 3 (Min A ) Sit to Lying (QC): 2 Sit to Stand (QC): 2 Chair/Tqd-wg-Uxriv Xfer(QC): 3 (Min A ) Car Transfer (QC): 88 Gait Training Does the Patient Walk?: Yes Walk 10 feet (QC): 3 (Min A ) Walk 50 ft with 2 Turns(QC): 88 Walk 150 ft (QC): 88 Walking 10ft/uneven surface-QC: 88 Gait Assistive Device: Walker [place] Wheelchair Training Does the Pt Use a Wheelchair?: Yes Wheel 50 ft with 2 turns (QC): 2 Wheel 150 ft (QC): 3 (Min A ) Type of Wheelchair: Manual Stair Training 1 Step (curb) (QC): 88 4 Steps (QC): 88 12 Steps (QC): 88 Balance Picking up an Object (QC): 3 (Min A ) ADL-Treatment Eating (QC): 5 Oral Hygiene (QC): 5 (Set up to open toothpaste, set up water and cup.) Shower/Bathe Self (QC): 2 (Max assist overall. Pt. required assistance to wash under left UE, under pannus, front and rear guy area, and bilateral feet. ) Upper Body Dressing (QC): 3 (mod A) Lower Body Dressing (QC): 2 On/Off Footwear (QC): 2 Toileting Hygiene (QC): 2 (Pt. requires min/mod assist in stance while OT cleanses rear guy area after BM.) Assessment/Plan Assessment and Plan Assess & Plan/Chief Complaint Acute neurological deficit of the L upper extremity-MRI revealed showering of emboli-failed OAC placed on Lovenox and consulted Cardiology and reviewed ECHO CVA CT and CTA have not shown evidence of hemorrhage or acute ischemia MRI showed multifocal areas of acute/subacute ischemia involving the bilateral cerebral and cerebellar hemispheres Due to multiple involved areas, embolic disease suspected Weakness has not improved Continue atorvastatin and aspirin Eliquis switched to 90mg of lovenox BID for anticoagulation Echo and carotid u/s pending. Attempting to identify source of embolism Moved to ARU-05/29/23 PT/OT Metastatic endometrial cancer Underwent hysterectomy 03/2021 Dr Qiu recent scans revealed recurrence with metastasis confirmed on peritoneal mass IR CT guided biopsy patient has plans to follow with Dr Oscar-she will see her ARU 05/30/23 Hx of DVT on anticoagulation of Eliquis and DC placed on Lovenox since failed with emboli causing CVA Elevated D dimer Elevated troponin Recently treated for LE DVT and placed on anticoagulation H/O Breast cancer Nausea and vomiting place scopolamine patch on 05/30/2023-minimize meds since that is what makes her gag Urinary retention requiring Mosquera catheter to be reinserted 05/30/2023 Diet- regular DVT ppx- anticoagulated with lovenox Code- DNR 05/30/2023: Urinary catheter Scopolamine patch Monitor closely 05/31/2023: Monitor closely (1) Embolic stroke SHAMAR DAHL DO May 31, 2023 06:00
--- NOTE | 2023-05-31 07:34 | Occupational Ther Daily Note ---
OT Current Status-Daily Note Subjective Pt alert, lying in bed. Pt agrees to therapy. Pt c/o nausea, no pain. Pt has nausea patch behind L ear. Mental Status/Objective Patient Orientation: Person, Place, Time, Situation ADL-Treatment Mod A for Supine to EOB. Pt sat EOB independently. Min A for SPT from EOB to w/c. Pt then completed oral care with set up, attempted to educate pt on one handed techniques. Pt became nauseous though did not vomit. Min A for transfer to toilet. Assist to manipulate clothing cleanse due to fatigue and weakness. Mod A for transfers in/out of shower. Pt sat 100% of the time to complete shower, pt bathed chest and abdomen while LOBO cleansed all other areas due to fatigue and weakness. Due to time constraints, [facility] tech took over care of pt. All needs met in room. Therapy Code Descriptions/Definitions Functional [place] Measure: 0=Not Assessed/NA 4=Minimal Assistance 1=Total Assistance 5=Supervision or Setup 2=Maximal Assistance 6=Modified [place] 3=Moderate Assistance 7=Complete IndependenceSCALE: Activities may be completed with or without assistive devices. 5-Cqlawqfblb-raqjjxs completes the activity by him/herself with no assistance from a helper. 5-Set-up or Clean-up Assistance-helper sets up or cleans up; patient completes activity. [place] assists only prior to or following the activity. 4-Supervision or Touching Assistance-helper provides verbal cues and/or touching/steadying and/or contact guard assistance as patient completes activity. Assistance may be provided throughout the activity or intermittently. 3-Partial/Moderate Assistance-helper does LESS THAN HALF the effort. [place] lifts, holds or supports trunk or limbs, but provides less than half the effort. 2-Substantial/Maximal Assistance-helper does MORE THAN HALF the effort. [place] lifts or holds trunk or limbs and provides more than half the effort. 0-Sgzmhbpmh-gbviow does ALL the effort. Patient does none of the effort to complete the activity. Or, the assistance of 2 or more helpers is required for the patient to complete the activity. If activity was not attempted, code reason: 7-Patient Refused. 9-Not Applicable-not attempted and the patient did not perform the activity before the current illness, exacerbation or injury. 10-Not Attempted due to Environmental Limitations-(lack of equipment, weather restraints, etc.). 88-Not Attempted due to Medical Conditions or Safety Concerns. Oral Hygiene (QC): 5 Shower/Bathe Self (QC): 2 Toileting Hygiene (QC): 3 OT Short Term Goals Short Term Goals Time Frame: Jun 12, 2023 Eatin Oral hygiene: 5 Toileting hygiene: 3 (Min assist with AE) Shower/bathe self: 3 (Min/mod assist with AE) Upper body dressin Lower body dressin (Min assist with AE) Putting on/taking off footwear: 3 (Min assist with AE) OT Intermediate Goals Intermediate Goals Time Frame: Jun 26, 2023 Acute change in mental status: 0 Inattention: 0 Disorganized thinkin Altered level of consciousness: 0 Eating (QC): 6 Oral Hygiene (QC): 6 Toileting Hygiene (QC): 6 Shower/Bathe Self (QC): 5 Upper Body Dressing (QC): 6 Lower Body Dressing (QC): 5 (With AE as needed) On/Off Footwear (QC): 6 (With AE as needed) Additional Goals: 1-Demonstrate ADL Tasks, 2-Verbalize Understanding, 3- ImproveStrength/[place] 1=Demonstrate adherence to instructed precautions during ADL tasks. 2=Patient will verbalize/demonstrate understanding of assistive devices/modifications for ADL. 3=Patient will improve strength/tolerance for activity to enable patient to perform ADL's. OT Education/Plan Problem List/Assessment Assessment: Decreased Activ Tolerance, Decreased UE Strength, Impaired Bed Mobi lity, Impaired Funct Balance, Impaired Self-Care Skills, Restricted Funct UE ROM Discharge Recommendations Plan/Recommendations: Continue POC Treatment Plan/Plan of Care Patient would benefit from OT for education, treatment and training to promote independence in ADL's, mobility, safety and/or upper extremity function for ADL 's. Plan of Care: ADL Retraining, Functional Mobility, UE Funct Exercise/Act Treatment Duration: Jun 26, 2023 Frequency: At least 5 of 7 days/Wk (IRF) Estimated Hrs Per Day: 1.5 hours per day Agreement: Yes Rehab Potential: Good Time Start Time: 07:00 Stop Time: 08:00 DATE: May 31, 2023 Total Time Billed (hr/min): 60 Billed Treatment Time 1 visit-ADL 4 (60 min) NAJMA ALFONSO May 31, 2023 07:34
[2023-05-31 08:00] VITALS: BP 146/86
[2023-05-31] MEDS: ASPIRIN E.C. 81 MG (ECOTRIN) TAB PO SCH (08:28)
[2023-05-31] MEDS: DOCUSATE SODIUM 100 MG (COLACE) CAP PO SCH (10:07)
[2023-05-31] MEDS: SENNA W/DOCUSATE (SENOKOT S) TABLET PO SCH (10:08)
[2023-05-31] MEDS: polyethylene glycoL POWDER 17 GM (MIRALAX) PACK PO SCH ×2 (10:08→21:39)
--- NOTE | 2023-05-31 10:08 | Progress Note - Cardiology ---
Cardiology SOAP Progress Note Subjective: Lying in bed Spouse at the bedside Continues to report difficulty keeping food down C/O abdominal distension C/O fast heartbeat Objective: I&O/Vital Signs 05/31/23 08:00 Temp 36.0 Pulse 111 Resp 16 B/P (MAP) 146/86 (106) Pulse Ox 94 O2 Delivery Room Air 05/31/23 00:00 Intake Total 450 ml Output Total 175 ml Balance 275 ml Weight (Pounds): 185 Weight (Calculated Kilograms): 83.788427 Constitutional: AAO x 3, well-developed, well-nourished Respiratory: No accessory muscle use, No respiratory distress; chest expansion is symmetric, chest is bilaterally symmetric, other (diminished based bilat) Cardiovascular: No JVD; tachycardia, S1 and S2 Gastrointestional: No tender; soft, distended; No guarding; audible bowel sounds Extremities: other (RLE swelling, non-pitting) Neurologic/Psychiatric: other (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 This likely corresponds to the patient's symptoms of left arm numbness and weakness. No associated hemorrhage or mass effect. Given the involvement in multiple vascular territories, embolic phenomenon is suspected - Carotid u/s of 05-28-23 shows no signif stenosis Liver mass, stage IV cancer per Dr. Whiteside: - U/S of the abd 05-14-23: Centrally necrotic mass posterior segment right lobe of liver suspicious for neoplasm. - Per CTA of the chest/abdomen on 05-14-23: A 1 cm mass in the medial aspect of the right lower lobe concerning for neoplasm. Further evaluation with PET scan should be considered. Additionally, there is a 4 mm nodule in the right upper lobe, likely granuloma. Moderate amount of abdominal ascites. Large mass in the liver concerning for neoplasm. There are additional hepatic cysts. - Stage IV - management per Dr. Whiteside H/O extensive RLE DVT - dx May 14, 2023 - has been on Eliquis Coronary artery disease - underwent LHC on 09/27/[address] 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 Dominant right coronary artery with mild disease nonobstructive disease. Mildly elevated left ventricular end-diastolic pressure. Normal aortic root. 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 Left main appears to arise from the right coronary cusp, sharing a common origin with the right coronary artery. The left main coronary artery passes between the aorta and pulmonary artery. There is some narrowing of the left main coronary artery as it passes between the pulmonary artery and aorta. - Patient was seen by Dr. Clemente at [facility]. Recommendation was conservative management and monitoring especially that the patient is 72 years old and she has been asymptomatic. Recommend to avoid strenuous exercise. 2D echo done in August [address] Hilliard with normal LV size, EF 50 to 55%, mild aortic regurgitation, PA pressure 35 to 40 mmHg. - Echocardiogram of 05-28-23 showed LVEF 60-65%. Grade 1 diastolic dysfunction. Trivial pericardial effusion circumferential to heart. PASP 35-40 mmHg Peripheral arterial disease - KYREE was done in [address] Vásquez showing slightly abnormal. No significant obstructive disease was noted, has been treated for Raynaud's phenomena History of chronic venous insufficiency Echocardiogram done in August 2021 showing normal LV size, EF 50-55%, mild AR PA pressure 35-40 mmHg Hypertension Hyperlipidemia - statin tx History of endometrial cancer, had a hysterectomy with Dr. Qiu, History of breast cancer in 2008, received radiation to the chest, currently following with Dr. Qiu Mild bilateral carotid stenosis, had a carotid ultrasound done at Dr. Diego's office Thyroid nodule noted incidentally during carotid ultrasound, patient reported that work-up was done and she had a biopsy and it was normal. Plan: Discussion and Recomendations Complex issues Recent extensive RLE DVT dx May 14, 2023 for which she has been on OAC with Eliquis. She now presents with CVA with left sided weakness/numbness showing involvement in multiple vascular territories, embolic suspected. This is likely d/t hypercoaguability d/t cancer mets - CVA management per Dr. Huynh - Dr. Whiteside has advised warfarin tx as out pt - management per Dr. Huynh/Dr. Whiteside She has recently been dx with peritoneal mass, liver mass suspected mets - Stage IV per Dr. Whiteside - management per Dr. Huynh/Dr. WHITESIDE Tachycardia/HTN - start low dose BB CAD - continue ASA and statin SHAHBAZ LYLE May 31, 2023 10:08
--- NOTE | 2023-05-31 10:22 | Physical Therapy Daily Note ---
PT Daily Note-Current Subjective PT in room laying in bed spine and willing for therapy. Pt reports dry heaving and being nauseous this morning. PT more fatigued then normal after having a shower prior. pt requires more rest breaks after every exercise secondary to fatigue and to keep nausea from increasing. PT was left in bed with call light and all needs met after therapy this day. pt reports no pain before, during or after therapy. Pain Section J - Health Conditions 1. Rarely or not at all 2. Occasionally 3. Frequently 4. Almost constantly 8. Unable to answer Pain Effect on Sleep: 1 Pain Interference with Therapy: 0 Pain Interference w/Day-to-Day: 1 Mental Status Patient Orientation: Person, Place, Time, Situation Transfers SCALE: Activities may be completed with or without assistive devices. 9-Zsmctvxojq-qcrzvob completes the activity by him/herself with no assistance from a helper. 5-Set-up or Clean-up Assistance-helper sets up or cleans up; patient completes activity. [place] assists only prior to or following the activity. 4-Supervision or Touching Assistance-helper provides verbal cues and/or touching/steadying and/or contact guard assistance as patient completes activity. Assistance may be provided throughout the activity or intermittently. 3-Partial/Moderate Assistance-helper does LESS THAN HALF the effort. [place] lifts, holds or supports trunk or limbs, but provides less than half the effort. 2-Substantial/Maximal Assistance-helper does MORE THAN HALF the effort. [place] lifts or holds trunk or limbs and provides more than half the effort. 5-Ihacagojj-vkhtzj does ALL the effort. Patient does none of the effort to complete the activity. Or, the assistance of 2 or more helpers is required for the patient to complete the activity. If activity was not attempted, code reason: 7-Patient Refused. 9-Not Applicable-not attempted and the patient did not perform the activity before the current illness, exacerbation or injury. 10-Not Attempted due to Environmental Limitations-(lack of equipment, weather restraints, etc.). 88-Not Attempted due to Medical Conditions or Safety Concerns. Weight Bearing Right Lower Extremity: Right Full Weight Bearing Left Lower Extremity: Left Full Weight Bearing Exercises Supine Ex: Bridging, Ankle pumps, Quad Set, Glut sets, Heel Slides, Short Arc Quads, Straight leg raise, Hip abd/add Treatments Pt is able to preform supine there ex in bed for 4 sets of 5-10 reps each with rest in between each exercise. pt does requires 10% VC for correct mm movement. ther-ex is preformed in all planes of motion allowed. pt has no pain during ther-ex this treatment session Assessment Current Status: Fair Progress (Pt fair this day secodanry to fatigue and nausea. ) PT Usp Goals Call Center Coordinator Goals PT Usp Goals Time Frame: Jun 08, 2023 Roll Left & Right (QC): 4 (Pt will be SBA/CGA for all aspects of functional mobility to be able to safely return home with spouse. ) Sit to Lying (QC): 4 (Pt will be SBA/CGA for all aspects of functional mobility to be able to safely return home with spouse. ) Lying-Sitting on Side/Bed(QC): 4 (Pt will be SBA/CGA for all aspects of functional mobility to be able to safely return home with spouse. ) Sit to Stand (QC): 4 (Pt will be SBA/CGA for all aspects of functional mobility to be able to safely return home with spouse. ) Chair/Njk-ub-Ucdhb Xfer(QC): 4 (Pt will be SBA/CGA for all aspects of functional mobility to be able to safely return home with spouse. ) Toilet Transfer (QC): 4 (Pt will be SBA/CGA for all aspects of functional mobility to be able to safely return home with spouse. ) Car Transfer (QC): 4 (Pt will be SBA/CGA for all aspects of functional mobility to be able to safely return home with spouse. ) Does the Patient Walk: Yes Walk 10 feet (QC): 4 (Pt will be SBA/CGA for all aspects of functional mobility to be able to safely return home with spouse. ) Walk 50ft with 2 Turns (QC): 4 (Pt will be SBA/CGA for all aspects of functional mobility to be able to safely return home with spouse. ) Walk 150 ft (QC): 4 (Pt will be SBA/CGA for all aspects of functional mobility to be able to safely return home with spouse. ) Walking 10ft on Uneven Surface: 4 (Pt will be SBA/CGA for all aspects of functional mobility to be able to safely return home with spouse. ) 1 Step (curb) (QC): 4 (Pt will be SBA/CGA for all aspects of functional mobility to be able to safely return home with spouse. ) 4 Steps (QC): 4 (Pt will be SBA/CGA for all aspects of functional mobility to be able to safely return home with spouse. ) 12 Steps (QC): 4 (Pt will be SBA/CGA for all aspects of functional mobility to be able to safely return home with spouse. ) Picking up an Object (QC): 4 (Pt will be SBA/CGA for all aspects of functional mobility to be able to safely return home with spouse. ) Does the Pt use WC or Scooter?: Yes Wheel 50 feet with 2 turns (QC: 4 (Pt will be SBA/CGA for all aspects of functional mobility to be able to safely return home with spouse. ) Type: Manual Wheel 150 feet: 4 (Pt will be SBA/CGA for all aspects of functional mobility to be able to safely return home with spouse. ) Type: Manual PT Plan Treatment/Plan Treatment Plan: Continue Plan of Care Treatment Plan: Bed Mobility, Concurrent Therapy, Education, Functional Activity Marlen, Functional Strength, Group Therapy, Gait, Safety, Therapeutic Exercise, Transfers Treatment Duration: Jun 08, 2023 Frequency: At least 5 of 7 days/Wk (IRF) Estimated Hrs Per Day: 1.5 hours per day Patient and/or Family Agrees t: Yes Time Time In: 0930 Time Out: 1030 DATE: May 31, 2023 Total Billed Treatment Time: 60 Total Billed Treatment 1 EX x 4 Eva Acosta AUGER SUPERVISOR May 31, 2023 10:22
[2023-05-31] MEDS ORDERED: meTOprolol TARTRATE 25 MG (LOPRESSOR) TABLET PO NR (10:30)
[2023-05-31 11:41] VITALS: BP 129/66
[2023-05-31] MEDS: ONDANSETRON 4 MG (ZOFRAN) ORAL DISSOLVE TAB PO PRN (11:50)
--- NOTE | 2023-05-31 14:54 | Therapy Group Daily Note ---
Therapy Daily Group Note Patient Education Topic Exercises Exercises LE Seated Exercise, UE Exercise Session Ratio (pt:therapist): 3:1 Goal of Session: UE/LE Strengthing, Other (list) Goal Met for this Session: Yes Pt Benefit of Group: Contributions to Others, F/U Use of Strategies @Home, Increased Functional Safety, Increased Functional Strength, Improved Cognition, Recognition of Peers, Socialization Other/Notes pt was transported to Pt/OT group consisted of introduction, socialization, upper and lower ther-ex and focused on benefits of exercise. Start Time: 13:00 Stop Time: 14:15 Total Billed Treatment Time: 75 Total Billed Treatment 1 GRP KarlaEva TRUST ADMINISTRATOR May 31, 2023 14:54
[2023-05-31 15:01] VITALS: BP 133/81
--- NOTE | 2023-05-31 16:04 | Diagnostic Imaging Report ---
EXAMINATION: Limited abdominal ultrasound. HISTORY: Ascites. COMPARISON: 05/14/2023. FINDINGS: There is a bssdoyqx-qf-xmnmx amount of ascites visualized in all four quadrants. IMPRESSION: 1. Utewicbj-mb-viccd amount of ascites visualized in all four quadrants. Dictated by: Dictated on workstation # [id number]
[2023-05-31 19:45] VITALS: BP 137/66
[2023-05-31] MEDS: meTOprolol TARTRATE 25 MG (LOPRESSOR) TABLET PO SCH (21:39)
[2023-06-01] MEDS: ENOXAPARIN 100 MG/1 ML (LOVENOX) SYR SC SCH ×2 (00:58→13:49)
--- NOTE | 2023-06-01 07:58 | Occupational Ther Daily Note ---
OT Current Status-Daily Note Subjective Pt alert, sitting in recliner. Pt agrees to therapy. No c/o pain at this time. Pt fatigues easily, frequent lengthy breaks taken to decrease fatigue levels. Mental Status/Objective Patient Orientation: Person, Place, Time, Situation ADL-Treatment Set up for eating. Supplies gathered for oral care to be completed in recliner. Pt ate only a few bites though was not nauseous after. Therapy Code Descriptions/Definitions Functional [place] Measure: 0=Not Assessed/NA 4=Minimal Assistance 1=Total Assistance 5=Supervision or Setup 2=Maximal Assistance 6=Modified [place] 3=Moderate Assistance 7=Complete IndependenceSCALE: Activities may be completed with or without assistive devices. 2-Hktjxfnagy-lcxufis completes the activity by him/herself with no assistance from a helper. 5-Set-up or Clean-up Assistance-helper sets up or cleans up; patient completes activity. [place] assists only prior to or following the activity. 4-Supervision or Touching Assistance-helper provides verbal cues and/or touching/steadying and/or contact guard assistance as patient completes activity. Assistance may be provided throughout the activity or intermittently. 3-Partial/Moderate Assistance-helper does LESS THAN HALF the effort. [place] lifts, holds or supports trunk or limbs, but provides less than half the effort. 2-Substantial/Maximal Assistance-helper does MORE THAN HALF the effort. [place] lifts or holds trunk or limbs and provides more than half the effort. 5-Vggzfnpfu-culbrz does ALL the effort. Patient does none of the effort to complete the activity. Or, the assistance of 2 or more helpers is required for the patient to complete the activity. If activity was not attempted, code reason: 7-Patient Refused. 9-Not Applicable-not attempted and the patient did not perform the activity be fore the current illness, exacerbation or injury. 10-Not Attempted due to Environmental Limitations-(lack of equipment, weather restraints, etc.). 88-Not Attempted due to Medical Conditions or Safety Concerns. Eating (QC): 5 Oral Hygiene (QC): 5 Other Treatment Pt given HEP for therapy sponge and theraputty for use in room when not in therapy. Pt demonstrated understanding of all exercises. After session, pt sitting in recliner with call light/phone in reach. All needs met in room. OT Short Term Goals Short Term Goals Time Frame: Jun 12, 2023 Eatin Oral hygiene: 5 Toileting hygiene: 3 (Min assist with AE) Shower/bathe self: 3 (Min/mod assist with AE) Upper body dressin Lower body dressin (Min assist with AE) Putting on/taking off footwear: 3 (Min assist with AE) OT Cafe Or Restaurant Manager Goals Snf Goals Time Frame: Jun 26, 2023 Acute change in mental status: 0 Inattention: 0 Disorganized thinkin Altered level of consciousness: 0 Eating (QC): 6 Oral Hygiene (QC): 6 Toileting Hygiene (QC): 6 Shower/Bathe Self (QC): 5 Upper Body Dressing (QC): 6 Lower Body Dressing (QC): 5 (With AE as needed) On/Off Footwear (QC): 6 (With AE as needed) Additional Goals: 1-Demonstrate ADL Tasks, 2-Verbalize Understanding, 3- ImproveStrength/Marlen 1=Demonstrate adherence to instructed precautions during ADL tasks. 2=Patient will verbalize/demonstrate understanding of assistive devices/modifications for ADL. 3=Patient will improve strength/tolerance for activity to enable patient to perform ADL's. OT Education/Plan Problem List/Assessment Assessment: Decreased Activ Tolerance, Decreased UE Strength, Impaired Self- Care Skills, Restricted Funct UE ROM Discharge Recommendations Plan/Recommendations: Continue POC Treatment Plan/Plan of Care Patient would benefit from OT for education, treatment and training to promote independence in ADL's, mobility, safety and/or upper extremity function for ADL's. Plan of Care: ADL Retraining, Functional Mobility, UE Funct Exercise/Act Treatment Duration: Jun 26, 2023 Frequency: At least 5 of 7 days/Wk (IRF) Estimated Hrs Per Day: 1.5 hours per day Agreement: Yes Rehab Potential: Good Time Start Time: 07:00 Stop Time: 08:00 DATE: Jun 01, 2023 Total Time Billed (hr/min): 60 Billed Treatment Time 1 visit-ADL 2 (30 min) EX 2 (30 min) NAJMA ALFONSO Jun 01, 2023 07:58
[2023-06-01 08:00] VITALS: BP 122/61
[2023-06-01] MEDS: polyethylene glycoL POWDER 17 GM (MIRALAX) PACK PO SCH ×2 (08:08→21:00)
[2023-06-01] MEDS: ASPIRIN E.C. 81 MG (ECOTRIN) TAB PO SCH (08:08)
[2023-06-01] MEDS: meTOprolol TARTRATE 25 MG (LOPRESSOR) TABLET PO SCH ×2 (08:08→21:00)
[2023-06-01] MEDS ORDERED: LIDOCAINE 1% INJ 20 ML VIAL ONE (12:03)
--- NOTE | 2023-06-01 12:11 | Physical Therapy Daily Note ---
PT Daily Note-Current Subjective Pt found seated in recliner /c family present upon entry. Agreed to PT. Reports that she is having some discomfort in her abdomen and weakness in B knees. Does not rate pain. Pain Section J - Health Conditions 1. Rarely or not at all 2. Occasionally 3. Frequently 4. Almost constantly 8. Unable to answer Pain Effect on Sleep: 1 Pain Interference with Therapy: 0 Pain Interference w/Day-to-Day: 1 Mental Status Patient Orientation: Person, Place Attachments: [place] Catheter Transfers SCALE: Activities may be completed with or without assistive devices. 1-Zgpbzzhomq-gahegrf completes the activity by him/herself with no assistance from a helper. 5-Set-up or Clean-up Assistance-helper sets up or cleans up; patient completes activity. [place] assists only prior to or following the activity. 4-Supervision or Touching Assistance-helper provides verbal cues and/or touching/steadying and/or contact guard assistance as patient completes activity. Assistance may be provided throughout the activity or intermittently. 3-Partial/Moderate Assistance-helper does LESS THAN HALF the effort. [place] lifts, holds or supports trunk or limbs, but provides less than half the effort. 2-Substantial/Maximal Assistance-helper does MORE THAN HALF the effort. [place] lifts or holds trunk or limbs and provides more than half the effort. 7-Onxnomtcu-qvgmse does ALL the effort. Patient does none of the effort to complete the activity. Or, the assistance of 2 or more helpers is required for the patient to complete the activity. If activity was not attempted, code reason: 7-Patient Refused. 9-Not Applicable-not attempted and the patient did not perform the activity befo re the current illness, exacerbation or injury. 10-Not Attempted due to Environmental Limitations-(lack of equipment, weather re straints, etc.). 88-Not Attempted due to Medical Conditions or Safety Concerns. Sit to Stand (QC): 2 Chair/Uhr-cd-Joaja Xfer(QC): 2 Pt required MAX lifting and pivoting assistance to complete sit to stand and sajan ir to wheelchair transfers. Completes sit to stand transfer 6x /c use of parallel bars. After standing, is able to stand at // for up to 15 seconds before requiring a rest break. Weight Bearing Right Lower Extremity: Right Full Weight Bearing Left Lower Extremity: Left Full Weight Bearing Gait Training Does the Patient Walk?: No and Walking Goal IS indicated Wheelchair Training Does the Pt Use a Wheelchair?: Yes Wheel 50 ft with 2 turns (QC): 4 Type of Wheelchair: Manual Pt required MIN assist /c propulsion of wheelchair. Wheels self 100, 50 feet. Rest breaks required to complete. Treatments Seated Therapeutic Exercises (B): LAQs x 10 Heel/toe raises x 10 YTB: marching x 10 YTB: Hip abd x 10 Ball: hip add x 10 [place] ball: TA sets x 10 YTB: hamstring curls x 10 Assessment Current Status: Good Progress Pt able to progress standing tolerance this visit. Completes sit to stand transfer 6x at //. Required MAX lifting assist /c transfers from wheelchair and chair. After rising to standing position, pt is able to stand at // independently for up to 20 seconds before requiring a seated rest break. Pt able to navigate manual wheelchair up to 100 feet /c short rest breaks to complete. Displays good muscle endurance and strength /c completion of therapeutic exercises. Continue to progress pt as tolerated per POC. PT Prison Goals Prison Goals PT Prison Goals Time Frame: Jun 08, 2023 Roll Left & Right (QC): 4 (Pt will be SBA/CGA for all aspects of functional mobility to be able to safely return home with spouse. ) Sit to Lying (QC): 4 (Pt will be SBA/CGA for all aspects of functional mobility to be able to safely return home with spouse. ) Lying-Sitting on Side/Bed(QC): 4 (Pt will be SBA/CGA for all aspects of functional mobility to be able to safely return home with spouse. ) Sit to Stand (QC): 4 (Pt will be SBA/CGA for all aspects of functional mobility to be able to safely return home with spouse. ) Chair/Uia-cb-Efreb Xfer(QC): 4 (Pt will be SBA/CGA for all aspects of functional mobility to be able to safely return home with spouse. ) Toilet Transfer (QC): 4 (Pt will be SBA/CGA for all aspects of functional mobility to be able to safely return home with spouse. ) Car Transfer (QC): 4 (Pt will be SBA/CGA for all aspects of functional mobility to be able to safely return home with spouse. ) Does the Patient Walk: Yes Walk 10 feet (QC): 4 (Pt will be SBA/CGA for all aspects of functional mobility to be able to safely return home with spouse. ) Walk 50ft with 2 Turns (QC): 4 (Pt will be SBA/CGA for all aspects of functional mobility to be able to safely return home with spouse. ) Walk 150 ft (QC): 4 (Pt will be SBA/CGA for all aspects of functional mobility to be able to safely return home with spouse. ) Walking 10ft on Uneven Surface: 4 (Pt will be SBA/CGA for all aspects of functional mobility to be able to safely return home with spouse. ) 1 Step (curb) (QC): 4 (Pt will be SBA/CGA for all aspects of functional mobility to be able to safely return home with spouse. ) 4 Steps (QC): 4 (Pt will be SBA/CGA for all aspects of functional mobility to be able to safely return home with spouse. ) 12 Steps (QC): 4 (Pt will be SBA/CGA for all aspects of functional mobility to be able to safely return home with spouse. ) Picking up an Object (QC): 4 (Pt will be SBA/CGA for all aspects of functional mobility to be able to safely return home with spouse. ) Does the Pt use WC or Scooter?: Yes Wheel 50 feet with 2 turns (QC: 4 (Pt will be SBA/CGA for all aspects of functional mobility to be able to safely return home with spouse. ) Type: Manual Wheel 150 feet: 4 (Pt will be SBA/CGA for all aspects of functional mobility to be able to safely return home with spouse. 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
--- NOTE | 2023-06-01 13:01 | PM&R Progress Note ---
Subjective HPI/CC On Admission Date Seen by Provider: Jun 01, 2023 Time Seen by Provider: 12:30 Subjective/Events-last exam 06/01/2023: USG revealed ascites so Dr Roman placed paracentesis drain and it was bloody fluid Improved overall Nausea and emesis with pills Increased PO intake 05/31/2023: Having difficulty with meds Scop path in place so will minimize meds Lopressor started for tachycardia 05/30/2023: Patient having some difficulty Unable to really eat much Meds make her gag so we are crushing them Scopolamine patch will be placed Dr. Camejo spoke to her and told her she has stage IV cancer Urinary retention noted so we will replace catheter Review of Systems General: Fatigue, Malaise Objective Exam Vital Signs Vital Signs Date Time Temp Pulse Resp B/P (MAP) Pulse Ox O2 Delivery O2 Flow Rate FiO2 06/01/23 22:10 36.1 105 20 86/58 (67) 94 Room Air Capillary Refill : General Appearance: No Apparent Distress HEENT: PERRL/EOMI Neck: Supple Respiratory: No Accessory Muscle Use, No Respiratory Distress Cardiovascular: Regular Rate, Rhythm Gastrointestinal: Non Tender, Soft Back: Normal Inspection, No CVA Tenderness, No Vertebral Tenderness Extremity: Normal Capillary Refill, Normal Inspection, Normal Range of Motion, Non Tender, No Calf Tenderness, No Pedal Edema Neurologic/Psychiatric: Alert, Oriented x3, Abnormal Gait, Motor Weakness Skin: Normal Color, Warm/Dry Lymphatic: No Adenopathy Results/Procedures Lab Patient resulted labs reviewed. FIM Transfers Therapy Code Descriptions/Definitions Functional [place] Measure: 0=Not Assessed/NA 4=Minimal Assistance 1=Total Assistance 5=Supervision or Setup 2=Maximal Assistance 6=Modified [place] 3=Moderate Assistance 7=Complete IndependenceSCALE: Activities may be completed with or without assistive devices. 8-Rakxoawjrm-hglkbxb completes the activity by him/herself with no assistance from a helper. 5-Set-up or Clean-up Assistance-helper sets up or cleans up; patient completes activity. [place] assists only prior to or following the activity. 4-Supervision or Touching Assistance-helper provides verbal cues and/or touching/steadying and/or contact guard assistance as patient completes activity. Assistance may be provided throughout the activity or intermittently. 3-Partial/Moderate Assistance-helper does LESS THAN HALF the effort. [place] lifts, holds or supports trunk or limbs, but provides less than half the effort. 2-Substantial/Maximal Assistance-helper does MORE THAN HALF the effort. [place] lifts or holds trunk or limbs and provides more than half the effort. 0-Ywabjovqc-atolun does ALL the effort. Patient does none of the effort to complete the activity. Or, the assistance of 2 or more helpers is required for the patient to complete the activity. If activity was not attempted, code reason: 7-Patient Refused. 9-Not Applicable-not attempted and the patient did not perform the activity before the current illness, exacerbation or injury. 10-Not Attempted due to Environmental Limitations-(lack of equipment, weather restraints, etc.). 88-Not Attempted due to Medical Conditions or Safety Concerns. Roll Left to Right (QC): 3 (Min A ) Sit to Lying (QC): 2 Sit to Stand (QC): 2 Chair/Yzr-bc-Eyplj Xfer(QC): 2 Car Transfer (QC): 88 Gait Training Does the Patient Walk?: No and Walking Goal IS indicated Walk 10 feet (QC): 3 (Min A ) Walk 50 ft with 2 Turns(QC): 88 Walk 150 ft (QC): 88 Walking 10ft/uneven surface-QC: 88 Gait Assistive Device: Walker Christian[place] Wheelchair Training Does the Pt Use a Wheelchair?: Yes Wheel 50 ft with 2 turns (QC): 4 Wheel 150 ft (QC): 3 (Min A ) Type of Wheelchair: Manual Stair Training 1 Step (curb) (QC): 88 4 Steps (QC): 88 12 Steps (QC): 88 Balance Picking up an Object (QC): 3 (Min A ) ADL-Treatment Eating (QC): 5 Oral Hygiene (QC): 5 Shower/Bathe Self (QC): 2 Upper Body Dressing (QC): 3 (mod A) Lower Body Dressing (QC): 2 On/Off Footwear (QC): 2 Toileting Hygiene (QC): 3 Assessment/Plan Assessment and Plan Assess & Plan/Chief Complaint Acute neurological deficit of the L upper extremity-MRI revealed showering of emboli-failed OAC placed on Lovenox and consulted Cardiology and reviewed ECHO CVA CT and CTA have not shown evidence of hemorrhage or acute ischemia MRI showed multifocal areas of acute/subacute ischemia involving the bilateral cerebral and cerebellar hemispheres Due to multiple involved areas, embolic disease suspected Weakness has not improved Continue atorvastatin and aspirin Eliquis switched to 90mg of lovenox BID for anticoagulation Echo and carotid u/s pending. Attempting to identify source of embolism Moved to ARU-05/29/23 PT/OT Metastatic endometrial cancer Underwent hysterectomy 03/2021 Dr Qiu recent scans revealed recurrence with metastasis confirmed on peritoneal mass IR CT guided biopsy patient has plans to follow with Dr Oscar-she will see her ARU 05/30/23 Hx of DVT on anticoagulation of Eliquis and DC placed on Lovenox since failed with emboli causing CVA Elevated D dimer Elevated troponin Recently treated for LE DVT and placed on anticoagulation H/O Breast cancer Nausea and vomiting place scopolamine patch on 05/30/2023-minimize meds since that is what makes her gag Urinary retention requiring Mosqu[place] catheter to be reinserted 05/30/2023 Ascites requiring therapeutic paracentesis Diet- regular DVT ppx- anticoagulated with lovenox Code- DNR 05/30/2023: Urinary catheter Scopolamine patch Monitor closely 05/31/2023: Monitor closely 06/01/2023: Appreciate Dr Roman (1) Embolic stroke SHAMAR DAHL DO Jun 01, 2023 13:01
--- NOTE | 2023-06-01 13:22 | CONSULTATION REPORT ---
DATE OF SERVICE: 06/01/2023 ATTENDING PRIMARY CARE PHYSICIAN: Dr. Senait Huynh. HISTORY OF PRESENT ILLNESS: The patient is a 72-year-old female, with recently diagnosed metastatic endometrial cancer. The patient reports that she was initially diagnosed in 2020 and underwent total hysterectomy as well as radiation. She then reports that recently, she developed right lower extremity swelling and was found to have a significant DVT and on that admission, was found to have metastatic reoccurrence. She also reports that she has developed significant abdominal distention, which has caused significant shortness of breath. She did undergo an ultrasound, which did show a significant amount of ascites fluid. She also was admitted due to small infarcts and left upper extremity weakness. PAST MEDICAL HISTORY: Metastatic endometrial cancer, history of breast cancer, hypertension, hypercholesterolemia. PAST SURGERIES: Left breast lumpectomy, tonsillectomy, total hysterectomy. ALLERGIES: LETROZOLE. MEDICATIONS: Aspirin 81 mg daily, atorvastatin 80 mg daily, cetirizine 10 mg daily, Eliquis 5 mg b.i.d., losartan 100 mg daily, Protonix 40 mg daily, potassium 10 mEq b.i.d. SOCIAL HISTORY: Negative smoke, negative alcohol. FAMILY HISTORY: Noncontributory. REVIEW OF SYSTEMS: A well-nourished female, currently in no acute distress. She does have abdominal distention, which does cause some exertional shortness of breath. She also does have bilateral lower extremity edema and left upper extremity weakness and neuropathy. She also did have an episode of nausea and vomiting. No known hematemesis, no coffee-ground emesis. No diarrhea or constipation, no red blood per rectum, no dark tarry stools. No fever, chills. No recent inadvertent weight loss. All other review of systems negative. PHYSICAL EXAMINATION: VITAL SIGNS: Temperature 35.1, blood pressure 122/61, pulse 93, respirations 16, pulse ox 96% on room air. CHEST: Scattered rales and rhonchi bilaterally. HEART: Regular. No murmurs. EXTREMITIES: A +1/3 bilateral lower extremity edema. Negative Homans sign. HEENT: No scleral icterus. No cervical lymphadenopathy. ABDOMEN: Distended with positive fluid shift wave. No hernias. SKIN: Warm and dry. LABORATORY DATA: WBC 8.4, hemoglobin 10.4, hematocrit 32, platelets 260. BUN 15, creatinine 1.06. ASSESSMENT AND PLAN: A 72-year-old female with symptomatic ascites, secondary to metastatic endometrial cancer. She is also status post right lower extremity deep vein thrombosis and placed on anticoagulation therapy. She also has had microinfarcts, causing left upper extremity neuropathy and weakness. She is being anticoagulated, now with Eliquis 5 mg b.i.d. She has developed abdominal distention on ultrasound consistent with an ascites stemming from the metastatic disease. We will proceed with a therapeutic paracentesis. 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
--- NOTE | 2023-06-01 13:48 | Occupational Ther Daily Note ---
OT Current Status-Daily Note Subjective Pt alert, lying in bed. Pt agrees to therapy, completing in bed. Nrsg in room to empty drain bag. Mental Status/Objective Patient Orientation: Person, Place, Time, Situation Attachments: Drains ADL-Treatment Therapy Code Descriptions/Definitions Functional [place] Measure: 0=Not Assessed/NA 4=Minimal Assistance 1=Total Assistance 5=Supervision or Setup 2=Maximal Assistance 6=Modified [place] 3=Moderate Assistance 7=Complete IndependenceSCALE: Activities may be completed with or without assistive devices. 9-Sdzirsmhna-fehiaws completes the activity by him/herself with no assistance from a helper. 5-Set-up or Clean-up Assistance-helper sets up or cleans up; patient completes activity. Romulus assists only prior to or following the activity. 4-Supervision or Touching Assistance-helper provides verbal cues and/or touching/steadying and/or contact guard assistance as patient completes a ctivity. Assistance may be provided throughout the activity or intermittently. 3-Partial/Moderate Assistance-helper does LESS THAN HALF the effort. Romulus lifts, holds or supports trunk or limbs, but provides less than half the effort. 2-Substantial/Maximal Assistance-helper does MORE THAN HALF the effort. Romulus lifts or holds trunk or limbs and provides more than half the effort. 3-Umceumgak-rpsbnf does ALL the effort. Patient does none of the effort to complete the activity. Or, the assistance of 2 or more helpers is required for the patient to complete the activity. If activity was not attempted, code reason: 7-Patient Refused. 9-Not Applicable-not attempted and the patient did not perform the activity before the current illness, exacerbation or injury. 10-Not Attempted due to Environmental Limitations-(lack of equipment, weather restraints, etc.). 88-Not Attempted due to Medical Conditions or Safety Concerns. Other Treatment Pt completed modified B UE theraband exercises with skilled instruction for correct technique. Pt instructed to stabilize theraband with L UE while R UE completed movement then do the same on other side. Pt tolerated only 5 reps with each exercise. After session, pt lying in bed with call light/phone in reach. All needs met in room. OT Short Term Goals Short Term Goals Time Frame: Jun 12, 2023 Eatin Oral hygiene: 5 Toileting hygiene: 3 (Min assist with AE) Shower/bathe self: 3 (Min/mod assist with AE) Upper body dressin Lower body dressin (Min assist with AE) Putting on/taking off footwear: 3 (Min assist with AE) OT Senior Living Goals Basting Marker Goals Time Frame: Jun 26, 2023 Acute change in mental status: 0 Inattention: 0 Disorganized thinkin Altered level of consciousness: 0 Eating (QC): 6 Oral Hygiene (QC): 6 Toileting Hygiene (QC): 6 Shower/Bathe Self (QC): 5 Upper Body Dressing (QC): 6 Lower Body Dressing (QC): 5 (With AE as needed) On/Off Footwear (QC): 6 (With AE as needed) Additional Goals: 1-Demonstrate ADL Tasks, 2-Verbalize Understanding, 3- ImproveStrength/Marlen 1=Demonstrate adherence to instructed precautions during ADL tasks. 2=Patient will verbalize/demonstrate understanding of assistive devices/modifications for ADL. 3=Patient will improve strength/tolerance for activity to enable patient to perform ADL's. OT Education/Plan Problem List/Assessment Assessment: Decreased Activ Tolerance, Decreased UE Strength Discharge Recommendations Plan/Recommendations: Continue POC Treatment Plan/Plan of Care Patient would benefit from OT for education, treatment and training to promote independence in ADL's, mobility, safety and/or upper extremity function for ADL's. Plan of Care: ADL Retraining, Functional Mobility, UE Funct Exercise/Act Treatment Duration: Jun 26, 2023 Frequency: At least 5 of 7 days/Wk (IRF) Estimated Hrs Per Day: 1.5 hours per day Agreement: Yes Rehab Potential: Good Time Start Time: 13:00 Stop Time: 13:30 DATE: Jun 01, 2023 Total Time Billed (hr/min): 30 Billed Treatment Time 1 visit-EX 2 (30 min) NAJMA ALFONSO Jun 01, 2023 13:48
[2023-06-01 14:28] VITALS: BP 129/60
[2023-06-01] MEDS ORDERED: APIX5TAB PO (14:35)
[2023-06-01] MEDS ORDERED: ATOR10TA66 PO (14:35)
--- NOTE | 2023-06-01 15:41 | Physical Therapy Daily Note ---
PT Daily Note-Current Subjective Patient supine in bed when PT enters room. Patient instructed in plan for session, progressing from AM session and focusing on targeted areas. Patient agreeable to participate, reporting mild discomfort in abdomen but does not rate pain. Patient presents with catheter and abdominal drain, assisted in management by PT during session for safety. Patient reports in fatigue from day, resulting in slight increase in functional limitation and increased need of rest. Pain Section J - Health Conditions 1. Rarely or not at all 2. Occasionally 3. Frequently 4. Almost constantly 8. Unable to answer Pain Effect on Sleep: 1 Pain Interference with Therapy: 0 Pain Interference w/Day-to-Day: 1 Mental Status Patient Orientation: Person, Place, Time, Situation Transfers SCALE: Activities may be completed with or without assistive devices. 6-Fczdgpqqjs-fsfnalf completes the activity by him/herself with no assistance from a helper. 5-Set-up or Clean-up Assistance-helper sets up or cleans up; patient completes activity. Sevier assists only prior to or following the activity. 4-Supervision or Touching Assistance-helper provides verbal cues and/or touching/steadying and/or contact guard assistance as patient completes activity. Assistance may be provided throughout the activity or intermittently. 3-Partial/Moderate Assistance-helper does LESS THAN HALF the effort. Sevier lifts, holds or supports trunk or limbs, but provides less than half the effort. 2-Substantial/Maximal Assistance-helper does MORE THAN HALF the effort. Sevier lifts or holds trunk or limbs and provides more than half the effort. 3-Ogqtayanr-ddtvxw does ALL the effort. Patient does none of the effort to complete the activity. Or, the assistance of 2 or more helpers is required for the patient to complete the activity. If activity was not attempted, code reason: 7-Patient Refused. 9-Not Applicable-not attempted and the patient did not perform the activity bef ore the current illness, exacerbation or injury. 10-Not Attempted due to Environmental Limitations-(lack of equipment, weather r estraints, etc.). 88-Not Attempted due to Medical Conditions or Safety Concerns. Roll Left & Right (QC): 2 Sit to Lying (QC): 2 Lying to Sitting/Side of Bed(Q: 2 Sit to Stand (QC): 3 Chair/Cjy-us-Abmpk Xfer(QC): 3 Toilet Transfer (QC): 3 Car Transfer (QC): 88 Patient participated in functional be mobility and repositioning practice focusing on improving efficiency and quality of functional task. Patient cued for improving position in bed with use of BUE and BLE and adaptive railings as needed. Patient req cues for attention to LUE placement and positioning with functional task. Patient participated in functional Sit <> stand transfer practice at [facility] from EOB focusing on improving positioning, performance, sequence, and safety. Patient utilizes posterior legs for support with use of AD for increased stability at this time. Weight Bearing Right Lower Extremity: Right Full Weight Bearing Left Lower Extremity: Left Full Weight Bearing Gait Training Does the Patient Walk?: No and Walking Goal IS indicated Neuromuscular Patient perform static sitting balance at EOB with single RUE support, progressing to no UE support without external assist. Patient then participated in dynamic reaching and weight shifting challenges focusing on maintaining COG/ESTELLA. Patient perform bouts of static standing balance with RUE support at [facility], progressed to light lateral weight shifting to promote improved functional balance, stability and reactive control while stimulating propripceptors for improved NM control and mm activation. Assessment Patient tolerated session well without adverse rxn. At end of session patient assisted to supine position at [facility] with all questioned answered and needs within reach. PT Detention Goals Detention Goals PT Turret Lathe Set Up Operator Goals Time Frame: Jun 08, 2023 Roll Left & Right (QC): 4 (Pt will be SBA/CGA for all aspects of functional mobility to be able to safely return home with spouse. ) Sit to Lying (QC): 4 (Pt will be SBA/CGA for all aspects of functional mobility to be able to safely return home with spouse. ) Lying-Sitting on Side/Bed(QC): 4 (Pt will be SBA/CGA for all aspects of functional mobility to be able to safely return home with spouse. ) Sit to Stand (QC): 4 (Pt will be SBA/CGA for all aspects of functional mobility to be able to safely return home with spouse. ) Chair/Jba-nl-Fvsat Xfer(QC): 4 (Pt will be SBA/CGA for all aspects of functional mobility to be able to safely return home with spouse. ) Toilet Transfer (QC): 4 (Pt will be SBA/CGA for all aspects of functional mobility to be able to safely return home with spouse. ) Car Transfer (QC): 4 (Pt will be SBA/CGA for all aspects of functional mobility to be able to safely return home with spouse. ) Does the Patient Walk: Yes Walk 10 feet (QC): 4 (Pt will be SBA/CGA for all aspects of functional mobility to be able to safely return home with spouse. ) Walk 50ft with 2 Turns (QC): 4 (Pt will be SBA/CGA for all aspects of functional mobility to be able to safely return home with spouse. ) Walk 150 ft (QC): 4 (Pt will be SBA/CGA for all aspects of functional mobility to be able to safely return home with spouse. ) Walking 10ft on Uneven Surface: 4 (Pt will be SBA/CGA for all aspects of functional mobility to be able to safely return home with spouse. ) 1 Step (curb) (QC): 4 (Pt will be SBA/CGA for all aspects of functional mobility to be able to safely return home with spouse. ) 4 Steps (QC): 4 (Pt will be SBA/CGA for all aspects of functional mobility to be able to safely return home with spouse. ) 12 Steps (QC): 4 (Pt will be SBA/CGA for all aspects of functional mobility to be able to safely return home with spouse. ) Picking up an Object (QC): 4 (Pt will be SBA/CGA for all aspects of functional mobility to be able to safely return home with spouse. ) Does the Pt use WC or Scooter?: Yes Wheel 50 feet with 2 turns (QC: 4 (Pt will be SBA/CGA for all aspects of functional mobility to be able to safely return home with spouse. ) Type: Manual Wheel 150 feet: 4 (Pt will be SBA/CGA for all aspects of functional mobility to be able to safely return home with spouse. ) Type: Manual PT Plan Treatment/Plan Treatment Plan: Continue Plan of Care Treatment Plan: Bed Mobility, Concurrent Therapy, Education, Functional Activity Marlen, Functional Strength, Group Therapy, Gait, Safety, Therapeutic Exercise, Transfers Treatment Duration: Jun 08, 2023 Frequency: At least 5 of 7 days/Wk (IRF) Estimated Hrs Per Day: 1.5 hours per day Patient and/or Family Agrees t: Yes Time Time In: 1457 Time Out: 1527 DATE: Jun 01, 2023 Total Billed Treatment Time: 30 Total Billed Treatment 1 visit 1NM 1FSALUD RODGERS PT Jun 01, 2023 15:41
--- NOTE | 2023-06-01 16:59 | Progress Note - Cardiology ---
Cardiology SOAP Progress Note Subjective: Reports improvement of feeling of rapid heart beat and of her hypertension No cp or palp or syncope No shortness of breath No focal weakness Gen weakness No n/v/d Objective: I&O/Vital Signs 06/01/23 06/01/23 06/01/23 08:00 08:30 14:28 Temp 35.1 Pulse 93 90 Resp 16 18 B/P (MAP) 122/61 (81) 129/60 (83) Pulse Ox 96 96 O2 Delivery Room Air Room Air Room Air 06/01/23 00:00 Intake Total 860 ml Output Total 450 ml Balance 410 ml Weight (Pounds): 185 Weight (Calculated Kilograms): 83.539614 Constitutional: AAO x 3, well-developed, well-nourished Respiratory: No accessory muscle use, No respiratory distress; chest expansion is symmetric, chest is bilaterally symmetric, other (diminished based bilat) Cardiovascular: No JVD; tachycardia, S1 and S2 Gastrointestional: No tender; soft, distended; No guarding; audible bowel sounds Extremities: other (RLE swelling, non-pitting) Neurologic/Psychiatric: other (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 This likely corresponds to the garry ent's symptoms of left arm numbness and weakness. No associated hemorrhage or mass effect. Given the involvement in multiple vascular territories, embolic phenomenon is suspected - Carotid u/s of 05-28-23 shows no signif stenosis Liver mass, stage IV cancer per Dr. Whiteside: - U/S of the abd 05-14-23: Centrally necrotic mass posterior segment right lobe of liver suspicious for neoplasm. - Per CTA of the chest/abdomen on 05-14-23: A 1 cm mass in the medial aspect of the right lower lobe concerning for neoplasm. Further evaluation with PET scan should be considered. Additionally, there is a 4 mm nodule in the right upper lobe, likely granuloma. Moderate amount of abdominal ascites. Large mass in the liver concerning for neoplasm. There are additional hepatic cysts. - Stage IV - management per Dr. Whiteside H/O extensive RLE DVT - dx May 14, 2023 - has been on Eliquis Coronary artery disease - underwent LHC on 09/27/[address] 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 Dominant right coronary artery with mild disease nonobstructive disease. Mildly elevated left ventricular end-diastolic pressure. Normal aortic root. 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 Left main appears to arise from the right coronary cusp, sharing a common origin with the right coronary artery. The left main coronary artery passes between the aorta and pulmonary artery. There is some narrowing of the left main coronary artery as it passes between the pulmonary artery and aorta. - Patient was seen by Dr. Clemente at [facility]. Recommendation was conservative management and monitoring especially that the patient is 72 years old and she has been asymptomatic. Recommend to avoid strenuous exercise. 2D echo done in August [address] Hilliard with normal LV size, EF 50 to 55%, mild aortic regurgitation, PA pressure 35 to 40 mmHg. - Echocardiogram of 05-28-23 showed LVEF 60-65%. Grade 1 diastolic dysfunction. Trivial pericardial effusion circumferential to heart. PASP 35-40 mmHg Peripheral arterial disease - KYREE was done in [address] Vásquez showing slightly abnormal. No significant obstructive disease was noted, has been treated for Raynaud's phenomena History of chronic venous insufficiency Echocardiogram done in August 2021 showing normal LV size, EF 50-55%, mild AR PA pressure 35-40 mmHg Hypertension Hyperlipidemia - statin tx History of endometrial cancer, had a hysterectomy with Dr. Qiu, History of breast cancer in 2008, received radiation to the chest, currently following with Dr. Qiu Mild bilateral carotid stenosis, had a carotid ultrasound done at Dr. Diego's office Thyroid nodule noted incidentally during carotid ultrasound, patient reported that work-up was done and she had a biopsy and it was normal. Plan: Complex issues Recent extensive RLE DVT dx May 14, 2023 for which she has been on OAC with Eliquis. She now presents with CVA with left sided weakness/numbness showing involvement in multiple vascular territories, embolic suspected. This is likely d/t hypercoaguability d/t cancer mets - CVA management per Dr. Huynh - Dr. Whiteside has advised warfarin tx as out pt - management per Dr. Huynh/Dr. Whiteside She has recently been dx with peritoneal mass, liver mass suspected mets - Stage IV per Dr. Whiteside - management per Dr. Huynh/Dr. WHITESIDE Tachycardia/HTN - improved with low dose BB CAD - continue ASA and statin VETO MERCHANT MD FACP FAC CCDS Jun 01, 2023 16:59
--- NOTE | 2023-06-01 18:52 | OPERATIVE REPORT ---
DATE OF SERVICE: 06/01/2023 ATTENDING PRIMARY CARE PHYSICIAN: Dr. Senait Huynh. PREOPERATIVE DIAGNOSIS: Symptomatic ascites secondary to metastatic endometrial cancer. POSTOPERATIVE DIAGNOSIS: Symptomatic ascites secondary to metastatic endometrial cancer. PROCEDURE: Paracentesis. SURGEON: Vaughn Duque MD ANESTHESIA: Local. ESTIMATED BLOOD LOSS: Minimal. FINDINGS: Blood changed transudative fluid. DISPOSITION: The patient tolerated the procedure well. INDICATIONS: The patient is a 72-year-old female who developed right lower extremity swelling and was found to have an extensive deep vein thrombosis. On that admission, she was found also to have a metastatic endometrial cancer. Since that time, she has been anticoagulated. During this process, she has also developed abdominal distention, which has caused her to be short of breath as well as bilateral lower extremity swelling. An ultrasound did confirm ascites, most likely secondary from her metastatic endometrial cancer. DESCRIPTION OF PROCEDURE: The abdomen was prepped and draped in standard surgical fashion. 1% lidocaine was then used to anesthetize the overlying skin, muscle layers as well as the peritoneal lining in the left lower abdominal quadrant. A transverse skin incision was then made using a #15 blade. The catheter and trocar were then introduced withdrawing blood-tinged transudative fluid. The catheter was then advanced over the trocar without any resistance. The catheter was then connected to tubing and gravity drainage bag. Catheter was then cleaned and covered with gauze followed by Op-Site. The patient tolerated the procedure well. We will continue with drainage for the next 24-72 hours and once minimal drainage, the catheter may be removed. 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
[2023-06-01 19:58] VITALS: BP 114/73
[2023-06-01] MEDS: ONDANSETRON 4 MG (ZOFRAN) ORAL DISSOLVE TAB PO PRN (21:33)
[2023-06-01] MEDS ORDERED: morphine INJ 4 MG/ML 1 ML (VIAL/SYRINGE) IM PRN (21:45)
[2023-06-01 22:10] VITALS: BP 86/58
[2023-06-02] MEDS ORDERED: NS (IVPB) 500 ML IV ONE (00:30)
[2023-06-02] MEDS ORDERED: NS IV 1000 ML 1,000 ML IV SCH (00:30)
[2023-06-02 00:46] LABS: BASOPHILS % (AUTO) 0 % (0-10); EOSINOPHILS % (AUTO) 0 % (0-10); HEMATOCRIT 23 % (35-52); LYMPHOCYTES # (AUTO) 1.1 10^3/uL (1.0-4.0); LYMPHOCYTES % (AUTO) 8 % (12-44); MEAN CORPUSCULAR HEMOGLOBIN 29 pg (25-34); MEAN CORPUSCULAR HGB CONC 31 g/dL (32-36); MEAN CORPUSCULAR VOLUME 95 fL (80-99); MEAN PLATELET VOLUME 10.1 fL (9.0-12.2); MONOCYTES # (AUTO) 0.6 10^3/uL (0.0-1.0); MONOCYTES % (AUTO) 4 % (0-12); NEUTROPHILS # (AUTO) 11.6 10^3/uL (1.8-7.8); NEUTROPHILS % (AUTO) 86 % (42-75); PLATELET COUNT 316 10^3/uL (130-400); WHITE BLOOD COUNT 13.6 10^3/uL (4.3-11.0)
[2023-06-02] MEDS ORDERED: NS IV 500 ML 500 ML IV SCH (01:15)
[2023-06-02 01:16] LABS: ELLIPT/OVALOCYTES SLIGHT; HYPOCHROMASIA SLIGHT; LYMPHOCYTES % (MANUAL) 8 %; MICROCYTOSIS MODERATE; MONOCYTES % (MANUAL) 4 %; NEUTROPHILS % (MANUAL) 88 %; POLYCHROMASIA SLIGHT
[2023-06-02 01:17] LABS: ACANTHOCYTES SLIGHT; BURR CELLS SLIGHT
[2023-06-02 02:33] VITALS: BP 58/42
[2023-06-02 02:48] VITALS: BP 60/42
[2023-06-02] MEDS ORDERED: NS IV 1000 ML 500 ML IV ONE (03:15)
[2023-06-02] MEDS ORDERED: ALBUMIN 25% 25 GM/100 ML 100 ML IV ONE (03:15)
[2023-06-02] MEDS: ENOXAPARIN 100 MG/1 ML (LOVENOX) SYR SC SCH (03:16)
--- NOTE | 2023-06-02 06:36 | Discharge Summary ---
Diagnosis/Chief Complaint Date of Admission May 29, 2023 at 13:15 Date of Discharge Discharge Diagnosis Rapid decline with multisystem organ failure with hypotension which resulted in in DNR patient with Stage IV cancer metastasis Acute neurological deficit of the L upper extremity-MRI revealed showering of emboli-failed OAC placed on Lovenox and consulted Cardiology and reviewed ECHO CVA CT and CTA have not shown evidence of hemorrhage or acute ischemia MRI showed multifocal areas of acute/subacute ischemia involving the bilateral cerebral and cerebellar hemispheres Due to multiple involved areas, embolic disease suspected Weakness has not improved Continue atorvastatin and aspirin Eliquis switched to 90mg of lovenox BID for anticoagulation Echo and carotid u/s pending. Attempting to identify source of embolism Moved to ARU-05/29/23 PT/OT Metastatic endometrial cancer Underwent hysterectomy 03/2021 Dr Qiu recent scans revealed recurrence with metastasis confirmed on peritoneal mass IR CT guided biopsy patient has plans to follow with Dr Oscar-she will see her ARU 05/30/23 Hx of DVT on anticoagulation of Eliquis and DC placed on Lovenox since failed with emboli causing CVA Elevated D dimer Elevated troponin Recently treated for LE DVT and placed on anticoagulation H/O Breast cancer Nausea and vomiting place scopolamine patch on 05/30/2023-minimize meds since that is what makes her gag Urinary retention requiring Mosquera catheter to be reinserted 05/30/2023 Ascites requiring therapeutic paracentesis Diet- regular DVT ppx- anticoagulated with lovenox Code- DNR 05/30/2023: Urinary catheter Scopolamine patch Monitor closely 05/31/2023: Monitor closely 06/01/2023: Appreciate Dr Roman Discharge Summary Discharge Physical Examination Allergies: Coded Allergies: letrozole (Verified Allergy, Unknown, RASH, 05/14/23) Uncoded Allergies: TAPE (Allergy, Mild, BLISTERS, 05/27/09) Vitals & I&Os Vital Signs Date Time Temp Pulse Resp B/P (MAP) Pulse Ox O2 Delivery O2 Flow Rate FiO2 06/02/23 02:48 35.6 96 22 60/42 96 Room Air Hospital Course Was the Problem List Reviewed?: Yes Patient was admitted to ARU following embolic CVA with left sided weakness. Lovenox maintained therapeutic dose due to failure of Eliquis. Severe nausea and vomiting occurred whenever she took any meds so those were minimized.. She was able to tolerate nutrition but she had no appetite. Ascites accumulated and Dr Roman placed paracentesis catheter which drained bloody malignant fluid. Abruptly she began having pain and unable to tolerate PO pain meds and she lost her IV and multiple attempts were made with no success so MSO4 was given IM. Patient progressively declined rapidly and IV was obtained and given albumin but she peacefully since she was DNR and Stage IV cancer with mets and family was notified. Labs (last 24 hrs) Laboratory Tests 05/30/23 05:52: White Blood Count 8.4, Red Blood Count 3.57L, Hemoglobin 10.4L, Hematocrit 32L, Mean Corpuscular Volume 89, Mean Corpuscular Hemoglobin 29, Mean Corpuscular Hemoglobin Concent 33, Red Cell Distribution Width 14.0, Platelet Count 260, Mean Platelet Volume 9.2, Immature Granulocyte % (Auto) 0, Neutrophils (%) (Auto) 78H, Lymphocytes (%) (Auto) 13, Monocytes (%) (Auto) 6, Eosinophils (%) (Auto) 1, Basophils (%) (Auto) 1, Neutrophils # (Auto) 6.6, Lymphocytes # (Auto) 1.1, Monocytes # (Auto) 0.5, Eosinophils # (Auto) 0.1, Basophils # (Auto) 0.1, Immature Granulocyte # (Auto) 0.0, Sodium Level 138, Potassium Level 3.6, Chloride Level 104, Carbon Dioxide Level 21, Anion Gap 13, Blood Urea Nitrogen 15, Creatinine 1.06, Estimat Glomerular Filtration Rate 56, BUN/Creatinine Ratio 14, Glucose Level 81, Calcium Level 9.5, Corrected Calcium 9.7, Total Bilirubin 0.6, Aspartate Amino Transf (AST/SGOT) 74H, Alanine Aminotransferase (ALT/SGPT) 43, Alkaline Phosphatase 106, Total Protein 6.9, Albumin 3.8 06/02/23 00:35: White Blood Count 13.6H, Red Blood Count 2.41L, Hemoglobin 7.0L, Hematocrit 23L, Mean Corpuscular Volume 95, Mean Corpuscular Hemoglobin 29, Mean Corpuscular Hemoglobin Concent 31L, Red Cell Distribution Width 14.2, Platelet Count 316, Mean Platelet Volume 10.1, Immature Granulocyte % (Auto) 2, Neutrophils (%) (Auto) 86H, Lymphocytes (%) (Auto) 8L, Monocytes (%) (Auto) 4, Eosinophils (%) (Auto) 0, Basophils (%) (Auto) 0, Neutrophils # (Auto) 11.6H, Lymphocytes # (Auto) 1.1, Monocytes # (Auto) 0.6, Eosinophils # (Auto) 0.0, Basophils # (Auto) 0.0, Immature Granulocyte # (Auto) 0.3H, Neutrophils % (Manual) 88, Lymphocytes % (Manual) 8, Monocytes % (Manual) 4, Polychromasia SLIGHT, Hypochromasia SLIGHT, Microcytosis MODERATE, Macrocytosis SLIGHT, Refugio Cells SLIGHT, Elliptocytes SLIGHT, Acanthocytes SLIGHT Pending Labs Laboratory Tests 05/30/23 05:52: White Blood Count 8.4, Red Blood Count 3.57, Hemoglobin 10.4, Hematocrit 32, Mean Corpuscular Volume 89, Mean Corpuscular Hemoglobin 29, Mean Corpuscular Hemoglobin Concent 33, Red Cell Distribution Width 14.0, Platelet Count 260, Mean Platelet Volume 9.2, Immature Granulocyte % (Auto) 0, Neutrophils (%) (Auto) 78, Lymphocytes (%) (Auto) 13, Monocytes (%) (Auto) 6, Eosinophils (%) (Auto) 1, Basophils (%) (Auto) 1, Neutrophils # (Auto) 6.6, Lymphocytes # (Auto) 1.1, Monocytes # (Auto) 0.5, Eosinophils # (Auto) 0.1, Basophils # (Auto) 0.1, Immature Granulocyte # (Auto) 0.0, Sodium Level 138, Potassium Level 3.6, Chloride Level 104, Carbon Dioxide Level 21, Anion Gap 13, Blood Urea Nitrogen 15, Creatinine 1.06, Estimat Glomerular Filtration Rate 56, BUN/Creatinine Ratio 14, Glucose Level 81, Calcium Level 9.5, Corrected Calcium 9.7, Total Bilirubin 0.6, Aspartate Amino Transf (AST/SGOT) 74, Alanine Aminotransferase (ALT/SGPT) 43, Alkaline Phosphatase 106, Total Protein 6.9, Albumin 3.8 06/02/23 00:35: White Blood Count 13.6, Red Blood Count 2.41, Hemoglobin 7.0, Hematocrit 23, Mean Corpuscular Volume 95, Mean Corpuscular Hemoglobin 29, Mean Corpuscular Hemoglobin Concent 31, Red Cell Distribution Width 14.2, Platelet Count 316, Mean Platelet Volume 10.1, Immature Granulocyte % (Auto) 2, Neutrophils (%) (Auto) 86, Lymphocytes (%) (Auto) 8, Monocytes (%) (Auto) 4, Eosinophils (%) (Auto) 0, Basophils (%) (Auto) 0, Neutrophils # (Auto) 11.6, Lymphocytes # (Auto) 1.1, Monocytes # (Auto) 0.6, Eosinophils # (Auto) 0.0, Basophils # (Auto) 0.0, Immature Granulocyte # (Auto) 0.3, Neutrophils % (Manual) 88, Lymphocytes % (Manual) 8, Monocytes % (Manual) 4, Polychromasia SLIGHT, Hypochromasia SLIGHT, Microcytosis MODERATE, Macrocytosis SLIGHT, Refugio Cells SLIGHT, Elliptocytes SLIGHT, Acanthocytes SLIGHT Discharge Home Medications: Active Scripts Active Ondansetron Odt (Ondansetron) 8 Mg Tab.rapdis 8 Mg SL Q4H PRN Reported Atorvastatin Calcium 10 Mg Tablet 10 Mg PO HS Eliquis (Apixaban) 5 Mg Tablet 5 Mg PO BID Pantoprazole Sodium 40 Mg Tablet.dr 40 Mg PO DAILY Losartan Potassium 100 Mg Tablet 100 Mg PO HS Zyrtec (Cetirizine HCl) 10 Mg Tablet 10 Mg PO DAILY Potassium Chloride 10 Meq Tab.er.prt 10 Meq PO BID Instructions to patient/family Please see electronic discharge instructions given to patient. Diagnosis/Problems Diagnosis/Problems (1) Embolic stroke Clinical Quality Measures DVT/VTE Risk/Contraindication: Contraindications-Mechi: Other *list below* Other: dvt SHAMAR DAHL DO Jun 02, 2023 06:36
[2023-06-02] MEDS ORDERED: SCOPOLAMINE PATCH REMOVAL TP SCH (13:00)
--- NOTE | 2023-06-04 08:33 | Therapy Team Discharge Summary ---
Therapy Discharge Summary Discharge Recommendations Date of Discharge Jun 02, 2023 at 03:44 Physical Therapy Pt suffered a CVA on 05/27/2023 and was admitted to the hospital on that date; Ad mitted to ARU on 05/29/2023. At [facility], pt was Mod I with the SPC. Upon PT eval, pt was Min A for all aspects of functional mobility and only able to ambulate 10ft. PT focused on bed mobility, transfers, walking, w/c mobility, B LE strengthening, endurance, and Ind. Pt had a rapid decline with multisystem organ failure with hypotension which resulted in in DNR patient with Stage IV cancer metastasis on 06/02/2023. D/C from PT. Roll Left to Right (QC): 2 Sit to Lying (QC): 2 Lying to Sitting/Side of Bed(Q: 2 Sit to Stand (QC): 3 Chair/Pfn-hm-Pejrx Xfer(QC): 3 Toilet Transfer (QC): 1 Car Transfer (QC): 88 Does the Patient Walk: No and Walking Goal IS indicated Mode of Locomotion: Both Anticipated Mode of Locomotion: Both Walk 10 feet (QC): 3 (Min A ) Walk 50 ft with 2 Turns(QC): 88 Walk 150 ft (QC): 88 Walking 10ft on uneven surface: 88 Gait Assistive Device: FWW Does the Pt Use a Wheelchair: Yes Wheel 50 ft with 2 turns (QC): 4 Wheel 150 ft (QC): 3 (Min A ) Type of Wheelchair: Manual 1 Step (curb) (QC): 88 4 Steps (QC): 88 12 Steps (QC): 88 Walking Assistive Device: Walker Balance Sitting Static: Good Balance Sitting Dynamic: Fair Balance-Standing Static: Poor Picking up an Object (QC): 3 (Min A ) Occupational Therapy Decreased Activ Tolerance, Decreased UE Strength Eating (QC): 5 Oral Hygiene (QC): 5 Shower/Bathe Self (QC): 2 Upper Body Dressing (QC): 3 (mod A) Lower Body Dressing (QC): 2 On/Off Footwear (QC): 2 Toileting Hygiene (QC): 3 PT Sports Book Server Goals Care Home Goals PT Care Home Goals Time Frame: Jun 08, 2023 Roll Left to Right (QC): 4 (Pt will be SBA/CGA for all aspects of functional mobility to be able to safely return home with spouse. ) Sit to Lying (QC): 4 (Pt will be SBA/CGA for all aspects of functional mobility to be able to safely return home with spouse. ) Lying-Sitting on Side/Bed(QC): 4 (Pt will be SBA/CGA for all aspects of functional mobility to be able to safely return home with spouse. ) Sit to Stand (QC): 4 (Pt will be SBA/CGA for all aspects of functional mobility to be able to safely return home with spouse. ) Chair/Gug-iu-Hfsps Xfer(QC): 4 (Pt will be SBA/CGA for all aspects of fun ctional mobility to be able to safely return home with spouse. ) Toilet/Commode Transfer (QC): 4 (Pt will be SBA/CGA for all aspects of functional mobility to be able to safely return home with spouse. ) Car Transfer (QC): 4 (Pt will be SBA/CGA for all aspects of functional mobility to be able to safely return home with spouse. ) Does the Patient Walk: Yes Walk 10 feet (QC): 4 (Pt will be SBA/CGA for all aspects of functional mobility to be able to safely return home with spouse. ) Walk 10ft-Uneven Surface(QC): 4 (Pt will be SBA/CGA for all aspects of functional mobility to be able to safely return home with spouse. ) Walk 50ft with 2 Turns (QC): 4 (Pt will be SBA/CGA for all aspects of functional mobility to be able to safely return home with spouse. ) Walk 150 ft (QC): 4 (Pt will be SBA/CGA for all aspects of functional mobility to be able to safely return home with spouse. ) Does the Pt use WC or Scooter?: Yes Wheel 50 feet with 2 turns (QC: 4 (Pt will be SBA/CGA for all aspects of functional mobility to be able to safely return home with spouse. ) Type: Manual Wheel 150 feet: 4 (Pt will be SBA/CGA for all aspects of functional mobility to be able to safely return home with spouse. ) Type: Manual 1 Step (curb) (QC): 4 (Pt will be SBA/CGA for all aspects of functional mobility to be able to safely return home with spouse. ) 4 Steps (QC): 4 (Pt will be SBA/CGA for all aspects of functional mobility to be able to safely return home with spouse. ) 12 Steps (QC): 4 (Pt will be SBA/CGA for all aspects of functional mobility to be able to safely return home with spouse. ) Picking up an Object (QC): 4 (Pt will be SBA/CGA for all aspects of functional mobility to be able to safely return home with spouse. ) OT Sports Book Server Goals Sports Book Server Goals Time Frame: Jun 26, 2023 Acute change in mental status: 0 Inattention: 0 Disorganized thinkin Altered level of consciousness: 0 Eating (QC): 6 Oral Hygiene (QC): 6 Toileting Hygiene (QC): 6 Shower/Bathe Self (QC): 5 Upper Body Dressing (QC): 6 Lower Body Dressing (QC): 5 (With AE as needed) On/Off Footwear (QC): 6 (With AE as needed) Additional Goals: 1-Demonstrate ADL Tasks, 2-Verbalize Understanding, 3- ImproveStrength/Marlen 1=Demonstrate adherence to instructed precautions during ADL tasks. 2=Patient will verbalize/demonstrate understanding of assistive devices/modifications for ADL. 3=Patient will improve strength/tolerance for activity to enable patient to perform ADL's. MARIA ELENA DIAZ PT Jun 04, 2023 08:33
--- NOTE | 2023-06-04 14:10 | Therapy Team Discharge Summary ---
Therapy Discharge Summary Discharge Recommendations Date of Discharge Jun 02, 2023 at 03:44 Physical Therapy Roll Left to Right (QC): 2 Sit to Lying (QC): 2 Lying to Sitting/Side of Bed(Q: 2 Sit to Stand (QC): 3 Chair/Xmz-yc-Pywuo Xfer(QC): 3 Toilet Transfer (QC): 1 Car Transfer (QC): 88 Does the Patient Walk: No and Walking Goal IS indicated Mode of Locomotion: Both Anticipated Mode of Locomotion: Both Walk 10 feet (QC): 3 (Min A ) Walk 50 ft with 2 Turns(QC): 88 Walk 150 ft (QC): 88 Walking 10ft on uneven surface: 88 Gait Assistive Device: FWW Does the Pt Use a Wheelchair: Yes Wheel 50 ft with 2 turns (QC): 4 Wheel 150 ft (QC): 3 (Min A ) Type of Wheelchair: Manual 1 Step (curb) (QC): 88 4 Steps (QC): 88 12 Steps (QC): 88 Walking Assistive Device: Walker Balance Sitting Static: Good Balance Sitting Dynamic: Fair Balance-Standing Static: Poor Picking up an Object (QC): 3 (Min A ) Occupational Therapy Pt suffered a CVA on 05/27/2023 and was admitted to the hospital on that date; Admitted to ARU on 05/29/2023. At [facility], pt was Mod I with the SPC. Upon OT eval, pt was Min A for all aspects of ADLS, functional mobility and only able to ambulate 10ft. OT focused on transfers, walking, w/c mobility, B UE strengthening/ROM, endurance, and Ind. Pt had a rapid decline with multisystem organ failure with hypotension which resulted in in DNR patient with Stage IV cancer metastasis on 06/02/2023. D/C from services upon expiration. Decreased Activ Tolerance, Decreased UE Strength Eating (QC): 5 Oral Hygiene (QC): 5 Shower/Bathe Self (QC): 2 Upper Body Dressing (QC): 3 (mod A) Lower Body Dressing (QC): 2 On/Off Footwear (QC): 2 Toileting Hygiene (QC): 3 PT Correction Goals Game Operator Goals PT Game Operator Goals Time Frame: Jun 08, 2023 Roll Left to Right (QC): 4 (Pt will be SBA/CGA for all aspects of functional mobility to be able to safely return home with spouse. ) Sit to Lying (QC): 4 (Pt will be SBA/CGA for all aspects of functional mobility to be able to safely return home with spouse. ) Lying-Sitting on Side/Bed(QC): 4 (Pt will be SBA/CGA for all aspects of functional mobility to be able to safely return home with spouse. ) Sit to Stand (QC): 4 (Pt will be SBA/CGA for all aspects of functional mobility to be able to safely return home with spouse. ) Chair/Lfb-yq-Xwrdh Xfer(QC): 4 (Pt will be SBA/CGA for all aspects of functional mobility to be able to safely return home with spouse. ) Toilet/Commode Transfer (QC): 4 (Pt will be SBA/CGA for all aspects of functional mobility to be able to safely return home with spouse. ) Car Transfer (QC): 4 (Pt will be SBA/CGA for all aspects of functional mobility to be able to safely return home with spouse. ) Does the Patient Walk: Yes Walk 10 feet (QC): 4 (Pt will be SBA/CGA for all aspects of functional mobility to be able to safely return home with spouse. ) Walk 10ft-Uneven Surface(QC): 4 (Pt will be SBA/CGA for all aspects of functional mobility to be able to safely return home with spouse. ) Walk 50ft with 2 Turns (QC): 4 (Pt will be SBA/CGA for all aspects of functional mobility to be able to safely return home with spouse. ) Walk 150 ft (QC): 4 (Pt will be SBA/CGA for all aspects of functional mobility to be able to safely return home with spouse. ) Does the Pt use WC or Scooter?: Yes Wheel 50 feet with 2 turns (QC: 4 (Pt will be SBA/CGA for all aspects of functional mobility to be able to safely return home with spouse. ) Type: Manual Wheel 150 feet: 4 (Pt will be SBA/CGA for all aspects of functional mobility to be able to safely return home with spouse. ) Type: Manual 1 Step (curb) (QC): 4 (Pt will be SBA/CGA for all aspects of functional mobility to be able to safely return home with spouse. ) 4 Steps (QC): 4 (Pt will be SBA/CGA for all aspects of functional mobility to be able to safely return home with spouse. ) 12 Steps (QC): 4 (Pt will be SBA/CGA for all aspects of functional mobility to be able to safely return home with spouse. ) Picking up an Object (QC): 4 (Pt will be SBA/CGA for all aspects of functional mobility to be able to safely return home with spouse. ) OT Game Operator Goals Game Operator Goals Time Frame: Jun 26, 2023 Acute change in mental status: 0 Inattention: 0 Disorganized thinkin Altered level of consciousness: 0 Eating (QC): 6 Oral Hygiene (QC): 6 Toileting Hygiene (QC): 6 Shower/Bathe Self (QC): 5 Upper Body Dressing (QC): 6 Lower Body Dressing (QC): 5 (With AE as needed) On/Off Footwear (QC): 6 (With AE as needed) Additional Goals: 1-Demonstrate ADL Tasks, 2-Verbalize Understanding, 3- ImproveStrength/Marlen 1=Demonstrate adherence to instructed precautions during ADL tasks. 2=Patient will verbalize/demonstrate understanding of assistive devices/modifications for ADL. 3=Patient will improve strength/tolerance for activity to enable patient to perform ADL's. JAKE POON OT Jun 04, 2023 14:10
== END 2023-06-02 03:44 | disposition expired | DRG 57 ==
PROVIDERS: ADMIT Internal Medicine; ATTEND Internal Medicine
PROC: 0W9G30Z Drainage of Peritoneal Cavity with Drainage Device, Percutaneous Approach (ICD-10-PCS; principal; 2023-06-01)
DX: I69.334 Monoplegia of upper limb following cerebral infarction affecting left non-dominant side (principal); C78.6 Secondary malignant neoplasm of retroperitoneum and peritoneum; C78.7 Secondary malignant neoplasm of liver and intrahepatic bile duct; R18.0 Malignant ascites; I69.341 Monoplegia of lower limb following cerebral infarction affecting right dominant side; R33.9 Retention of urine, unspecified; I10 Essential (primary) hypertension; G62.9 Polyneuropathy, unspecified; Z66 Do not resuscitate; R00.0 Tachycardia, unspecified; E78.00 Pure hypercholesterolemia, unspecified; K59.00 Constipation, unspecified; F41.9 Anxiety disorder, unspecified; F32.A Depression, unspecified; I25.10 Atherosclerotic heart disease of native coronary artery without angina pectoris; I35.1 Nonrheumatic aortic (valve) insufficiency; I87.2 Venous insufficiency (chronic) (peripheral); I65.23 Occlusion and stenosis of bilateral carotid arteries; Z85.42 Personal history of malignant neoplasm of other parts of uterus; Z86.718 Personal history of other venous thrombosis and embolism; Z79.01 Long term (current) use of anticoagulants; Z85.828 Personal history of other malignant neoplasm of skin; Z85.3 Personal history of malignant neoplasm of breast; Z88.8 Allergy status to other drugs, medicaments and biological substances; Z79.82 Long term (current) use of aspirin; Z79.899 Other long term (current) drug therapy
CPT/HCPCS: 36415; 76705; 80053; 85007; 85025; 85027; 86850; 86900; 86901; 86920; 93005; 94760